=== PATIENT | female | born 1970 | race African-American/Black ===

== ENCOUNTER 2016-12-01 10:07 | Emergency (ER) | payer OTHER ==
[2016-12-01 10:18] VITALS: BP 160/92; PULSE 93; TEMP 98.4; BMI 50.8
--- NOTE | 2016-12-01 11:19 | PDOC ---
History of Present Illness - General Chief Complaint: Abscess Boil Stated Complaint: RT FOOT PAIN Time Seen by Provider: 12/01/16 11:17 - History of Present Illness Initial Comments: 12/01/16 15:20 not seen by Ángel BATES Past History - Past Medical History Allergies/Adverse Reactions: Allergies Allergy/AdvReac Type Severity Reaction Status Date / Time No Known Allergies Allergy Verified 12/01/16 10:13 Home Medications: Ambulatory Orders Aspirin [ASA -] 81 mg PO DAILY 08/31/16 Insulin Lispro Protamin/Lispro [Humalog Mix 75-25 Vial] 25 units SQ BID Metformin HCl [Glucophage] 1,000 mg PO BID 08/31/16 Ramipril 10 mg PO DAILY 08/31/16 Zolpidem Tartrate [Ambien] 10 mg PO HS 08/31/16 Anemia: No Asthma: No Cancer: No Cardiac Disorders: No CVA: No COPD: No CHF: No Dementia: No Diabetes: Yes GI Disorders: No Disorders: No HTN: Yes Hypercholesterolemia: Yes Liver Disease: No Seizures: No Thyroid Disease: Yes (HYPOTHYROIDISM) - Psycho/Social/Smoking Cessation Hx Suicidal Ideation: No Smoking History: Former smoker Have you smoked in the past 12 months: No Number of Cigarettes Smoked Daily: 6 Information on smoking cessation initiated: No *Physical Exam - Vital Signs Last Vital Signs Temp Pulse Resp BP Pulse Ox 98.4 F 93 H 17 160/92 95 12/01/16 10:13 12/01/16 10:13 12/01/16 10:13 12/01/16 10:13 12/01/16 10:13 *DC/Admit/Observation/Transfer Diagnosis at time of Disposition: Essential (primary) hypertension, Diabetes mellitus type 2 in obese, Diabetic foot ulcer - Discharge Dispostion Disposition: HOME Condition at time of disposition: Improved - Referrals Referrals: Ollie Marks MD [Staff Physician] - Poli Prater [Primary Care Provider] - - Patient Instructions Printed Discharge Instructions: DI for Pressure Sores Additional Instructions: You have a diabetic foot ulcer. It is not infected today, but it is getting bigger based on the note from your last doctors visit. I was able to make an appointment with Dr. Marks for Monday12/07/16 at 2:00pm. Keep this appointment. Your x-ray does not show evidence of a larger infection in your foot. Keep using your foot cream and keeping your wound covered. Wear padded shoes. Return to the ED if you develop fevers, chills, or redness around the area. - Post Discharge Activity Work/School Note: Back to Work
--- NOTE | 2016-12-01 12:04 | PDOC ---
History of Present Illness - General Chief Complaint: Abscess Boil Stated Complaint: RT FOOT PAIN Time Seen by Provider: 12/01/16 11:17 - History of Present Illness Initial Comments: 12/01/16 12:18 Ms. Andrew is a 46 y/o female PMH DM II, HTN, who presents to [facility] with a foot ucler that she wanted to get checked. Pt. noticed a smell coming from her foot. States that she had the ulcer since 2012 and has been coming to [place] for wound care and hyper baric oxygen, but had an issue with her insurance so she stopped coming. She was last seen in the clinic in August. Pt. denies weakness, numbness or tingling in the foot. Denies fevers, chills, n/v/d. Past History - Past Medical History Allergies/Adverse Reactions: Allergies Allergy/AdvReac Type Severity Reaction Status Date / Time No Known Allergies Allergy Verified 12/01/16 10:13 Home Medications: Ambulatory Orders Aspirin [ASA -] 81 mg PO DAILY 08/31/16 Insulin Lispro Protamin/Lispro [Humalog Mix 75-25 Vial] 25 units SQ BID Metformin HCl [Glucophage] 1,000 mg PO BID 08/31/16 Ramipril 10 mg PO DAILY 08/31/16 Zolpidem Tartrate [Ambien] 10 mg PO HS 08/31/16 Anemia: No Asthma: No Cancer: No Cardiac Disorders: No CVA: No COPD: No CHF: No Dementia: No Diabetes: Yes GI Disorders: No Disorders: No HTN: Yes Hypercholesterolemia: Yes Liver Disease: No Seizures: No Thyroid Disease: Yes (HYPOTHYROIDISM) - Psycho/Social/Smoking Cessation Hx Suicidal Ideation: No Smoking History: Former smoker Have you smoked in the past 12 months: No Number of Cigarettes Smoked Daily: 6 Information on smoking cessation initiated: No *Physical Exam - Vital Signs Last Vital Signs Temp Pulse Resp BP Pulse Ox 98.4 F 93 H 17 160/92 95 12/01/16 10:13 12/01/16 10:13 12/01/16 10:13 12/01/16 10:13 12/01/16 10:13 - Physical Exam Comments: 12/01/16 12:21 GENERAL: Well developed, well nourished. Awake and alert. No acute distress. MUSCULOSKELETAL Normal range of motion at all joints. No bony deformities or tenderness. No CVA tenderness. EXTREMITIES: Charcot's feet bilaterally. 1+ DP pulse b/l. PT pulses not felt. No cyanosis. No clubbing. No edema. No calf tenderness. SKIN: 6 cm x 5 cm elliptical pressure ulcer of the right plantar foot in various stages. Approximately 3 cm x 1 cm centrally located stage III pressure ulcer. The rest of the surrounding area is a stage II pressure ulcer. Distinct odor coming from the wound without discharge or purulent drainage. No cellulitis, induration, surrounding erythema. Large callus surrounding the medial aspect of the ulcer. Warm and dry. Normal capillary refill. No rashes. No jaundice. NEUROLOGICAL: Alert, awake, appropriate. Cranial nerves 2-12 intact. No deficits to light touch and temperature in face, upper extremities and lower extremities. No motor deficits in the in face, upper extremities and lower extremities. Normoreflexic in the upper and lower extremities. Normal speech. Toes are down- going bilaterally. Gait is normal without ataxia. Medical Decision Making - Medical Decision Making 12/01/16 13:23 Extensive diabetic pressure ulcer on the right plantar foot. Patient states she hasn't been able to go to wound care due to an insurance issue. She was last treated for her issue in August. Based on her last note, it appears the wound has gotten larger. We'll obtain x-ray at this time to rule out osteo or gangrene. wound was cultured sent to lab. With scissors, was able to deep breathe approximately 1 cm of callus along the medial aspect of the ulcer. This was done to explore the wound further 12/01/16 13:55 X-ray does not show evidence of gangrene or osteomyelitis. Arranged appointment for patient to go to wound care with Dr. Marks on December 07 at 2 PM. Patient smoke with case management, community mental health social worker Eugenia who help to explain the insurance issue she had. She will be able to see Dr. Marks as he accepts Medicaid. Patient agrees to go to this appointment. Explained the importance of follow up and going to wound care for her ulcer. States she understands. We'll discharge home at this time. *DC/Admit/Observation/Transfer Diagnosis at time of Disposition: Essential (primary) hypertension, Diabetes mellitus type 2 in obese Diabetic foot ulcer Qualifiers: Diabetic foot ulcer location: midfoot Diabetes mellitus type: type 2 Laterality : right Non-pressure ulcer stage: unspecified non-pressure ulcer stage Qualified Code(s): E11.621 - Type 2 diabetes mellitus with foot ulcer - Discharge Dispostion Disposition: HOME Condition at time of disposition: Improved Admit: No - Referrals Referrals: Poli Prater [Primary Care Provider] - Ollie Marks MD [Staff Physician] - - Patient Instructions Printed Discharge Instructions: DI for Pressure Sores Additional Instructions: You have a diabetic foot ulcer. It is not infected today, but it is getting bigger based on the note from your last doctors visit. I was able to make an appointment with Dr. Marks for Monday12/07/16 at 2:00pm. Keep this appointment. Your x-ray does not show evidence of a larger infection in your foot. Keep using your foot cream and keeping your wound covered. Wear padded shoes. Return to the ED if you develop fevers, chills, or redness around the area. - Post Discharge Activity Work/School Note: Back to Work
--- NOTE | 2016-12-06 08:36 | PDOC ---
Patient Follow-up (Call Back) - Post ED Follow - Up Condition at time of discharge: Improved Disposition at time of original discharge: HOME Reason for Call Back: Abnwl. Microbiology (Wound C & S from rt ft on 12/01/16 has morganella morganii, MRSA, Diphtheroid/ Corynebacterium sensitive to bactrim DS, rx sent to [facility], for bactrim DS 1 tab bid for 10 days, unable to speak to pt.( she was in [place] at a does not have cell phone, spoke to her daughter Neeta she reports that her mother will be back tomorrow and that any rxs should be sent to [facility], and that her mother has an appt with a rn otolaryngology tomorrow unsure of their name. She will have her mother supervisor picking crew the RX. Cell phone in this record is old not Nivia's number now)
== END 2016-12-01 13:15 | disposition home or self-care (01) ==
LOC: JERFT 10:07
DX: E11.621 Type 2 diabetes mellitus with foot ulcer (principal); I10 Essential (primary) hypertension; E66.9 Obesity, unspecified; Z68.43 Body mass index [BMI] 50.0-59.9, adult; E03.9 Hypothyroidism, unspecified; Z87.891 Personal history of nicotine dependence
CPT/HCPCS: 73630-TC-RT; 87070; 87077; 87186; 87205; 99281-25

== ENCOUNTER 2017-05-22 18:17 | Emergency (ER) | payer OTHER ==
[2017-05-22 18:22] VITALS: BP 142/78; PULSE 77; TEMP 97.7; BMI 47.7
[2017-05-22] MEDS ORDERED: BACITRACIN 15 GM TUBE TOPICAL OINTMENT ONE (18:36)
--- NOTE | 2017-05-22 18:39 | PDOC ---
History of Present Illness - General Chief Complaint: Redness To Affected Area Stated Complaint: REDNESS TO AFFECTED AREA Time Seen by Provider: 05/22/17 18:25 History Source: Patient Exam Limitations: No Limitations - History of Present Illness Initial Comments: 05/22/17 18:44 concerned about blisters to bilateral breasts. uncertain to cause, may have been a new Bra rubbing , denies fevers/ pain / drainage. 05/22/17 18:46 Timing/Duration: unsure Severity: mild Associated Symptoms: reports: denies symptoms, malaise. denies: cough, fever/ chills, headaches Past History - Travel Traveled outside of the country in the last 30 days: No Close contact w/someone who was outside of country & ill: No - Past Medical History Allergies/Adverse Reactions: Allergies Allergy/AdvReac Type Severity Reaction Status Date / Time No Known Allergies Allergy Verified 05/22/17 18:18 Home Medications: Ambulatory Orders Aspirin [ASA -] 81 mg PO DAILY 08/31/16 Insulin Lispro Protamin/Lispro [Humalog Mix 75-25 Vial] 25 units SQ BID Metformin HCl [Glucophage] 1,000 mg PO BID 08/31/16 Ramipril 10 mg PO DAILY 08/31/16 Zolpidem Tartrate [Ambien] 10 mg PO HS 08/31/16 Anemia: No Asthma: No Cancer: No Cardiac Disorders: No CVA: No COPD: No CHF: No Dementia: No Diabetes: Yes (IDDM) GI Disorders: No Disorders: No HTN: Yes Hypercholesterolemia: Yes Liver Disease: No Seizures: No Thyroid Disease: Yes (HYPOTHYROIDISM) - Suicide/Smoking/Psychosocial Hx Smoking History: Never smoked Have you smoked in the past 12 months: Yes Number of Cigarettes Smoked Daily: 6 If you are a former smoker, when did you quit?: 2 years ago Information on smoking cessation initiated: No Hx Alcohol Use: No Drug/Substance Use Hx: No Substance Use Type: None Review of Systems - Review of Systems Able to Perform ROS?: Yes Is the patient limited Malay proficient: Yes Constitutional: Yes: Symptoms Reported, See HPI, Malaise. No: Chills, Fever, Loss of Appetite HEENTM: No: Symptoms Reported Respiratory: Yes: See HPI. No: Symptoms reported ABD/GI: Yes: Symptoms Reported, See HPI. No: Poor Appetite : No: Symptoms Reported Integumentary: Yes: Symptoms Reported Neurological: No: Symptoms reported All Other Systems: Reviewed and Negative *Physical Exam - Vital Signs Last Vital Signs Temp Pulse Resp BP Pulse Ox 97.7 F 77 18 142/78 100 05/22/17 18:19 05/22/17 18:19 05/22/17 18:19 05/22/17 18:19 05/22/17 18:19 - Physical Exam General Appearance: Yes: Nourished, Appropriately Dressed, Apparent Distress, Mild Distress HEENT: positive: JAYE, Normal ENT Inspection, Normal Voice, TMs Normal, Pharynx Normal Neck: positive: Supple. negative: Lymphadenopathy (R), Lymphadenopathy (L) Respiratory/Chest: positive: Lungs Clear, Normal Breath Sounds Cardiovascular: positive: Regular Rate Gastrointestinal/Abdominal: positive: Soft Extremity: positive: Normal Capillary Refill, Normal Inspection, Normal Range of Motion Integumentary: positive: Normal Color, Other (bilateral bullae that have ruptured - no erythema/ pain/ purulent drainage, ) Neurologic: positive: technology applications consultant II-XII NML intact, Fully Oriented, Alert, Normal Mood/ Affect, Normal Response, Motor Strength 5/5 Medical Decision Making - Medical Decision Making 05/22/17 18:52 fiction abrasions to bilateral breasts. dressed with bacitracin and opsite. Will F/U with Wound care that she attends weekly *DC/Admit/Observation/Transfer Diagnosis at time of Disposition: Abrasion - Discharge Dispostion Disposition: HOME Condition at time of disposition: Stable Admit: No - Patient Instructions Printed Discharge Instructions: DI for Abrasion Additional Instructions: Rest, Avoid heavy activity or lifting until healed. MAy reapply bacitracin to breast blisters as needed until healed. Show wound care on Monday - breast blisters for wound check.
== END 2017-05-22 18:47 | disposition home or self-care (01) ==
LOC: JERFT 18:17
DX: S20.112A Abrasion of breast, left breast, initial encounter (principal); S20.111A Abrasion of breast, right breast, initial encounter; X58.XXXA Exposure to other specified factors, initial encounter; Y93.9 Activity, unspecified; Y92.9 Unspecified place or not applicable; E11.9 Type 2 diabetes mellitus without complications; I10 Essential (primary) hypertension; E78.00 Pure hypercholesterolemia, unspecified; E03.9 Hypothyroidism, unspecified
CPT/HCPCS: 99281-25

== ENCOUNTER 2017-10-17 14:27 | Emergency (ER) | payer OTHER ==
[2017-10-17 14:36] VITALS: BP 143/89; PULSE 91; TEMP 97.8; BMI 37.0
--- NOTE | 2017-10-17 14:37 | PDOC ---
Rapid Medical Evaluation Chief Complaint: Abscess Boil Time Seen by Provider: 10/17/17 14:31 Medical Evaluation: Allergies Allergy/AdvReac Type Severity Reaction Status Date / Time No Known Allergies Allergy Verified 10/17/17 14:31 10/17/17 14:32 The patient presents with a chief complaint of: [Erythematous raw circular area under right axilla, H/O MRSA ] I have performed a brief in-person evaluation of this patient. Pertinent physical exam findings: vss, [Erythematous raw circular area under right axilla] I have ordered the following: [None] The patient will proceed to the ED for further evaluation. Discharge Disposition - Diagnosis Skin lesion - Referrals Referrals: Carlos Vann MD [Primary Care Provider] - - Patient Instructions - Post Discharge Activity
--- NOTE | 2017-10-17 15:19 | PDOC ---
History of Present Illness - General Chief Complaint: Abscess Boil Stated Complaint: RT ARM ABSCESS BOIL Time Seen by Provider: 10/17/17 14:31 History Source: Patient Exam Limitations: No Limitations - History of Present Illness Initial Comments: 10/17/17 15:19 47 yr female with obesity , DM, foot ulcer presents with open area to her right upper arm noticed today. pt states she scratched at the area and it started to bleed. Past History - Past Medical History Allergies/Adverse Reactions: Allergies Allergy/AdvReac Type Severity Reaction Status Date / Time No Known Allergies Allergy Verified 10/17/17 14:31 Home Medications: Ambulatory Orders Aspirin [ASA -] 81 mg PO DAILY 08/31/16 Insulin Lispro Protamin/Lispro [Humalog Mix 75-25 Vial] 25 units SQ BID Metformin HCl [Glucophage] 1,000 mg PO BID 08/31/16 Ramipril 10 mg PO DAILY 08/31/16 Zolpidem Tartrate [Ambien] 10 mg PO HS 08/31/16 Anemia: No Asthma: No Cancer: No Cardiac Disorders: No CVA: No COPD: No CHF: No Dementia: No Diabetes: Yes (IDDM) GI Disorders: No Disorders: No HTN: Yes Hypercholesterolemia: Yes Liver Disease: No Seizures: No Thyroid Disease: Yes (HYPOTHYROIDISM) - Immunization History Immunization Up to Date: Yes - Suicide/Smoking/Psychosocial Hx Smoking History: Never smoked Have you smoked in the past 12 months: Yes Number of Cigarettes Smoked Daily: 6 If you are a former smoker, when did you quit?: 2 years ago Information on smoking cessation initiated: No Hx Alcohol Use: No Drug/Substance Use Hx: No Substance Use Type: None *Physical Exam - Vital Signs Last Vital Signs Temp Pulse Resp BP Pulse Ox 97.8 F 91 H 16 143/89 98 10/17/17 14:31 10/17/17 14:31 10/17/17 14:31 10/17/17 14:31 10/17/17 14:31 - Physical Exam General Appearance: Yes: Nourished, Appropriately Dressed, Obese Integumentary: positive: Normal Color, Dry, Warm, Other (right upper outer forearm with 2cm circular area of excoraited skin, no drainage, no bleeding ) Procedures - Additional Procedures Progress: 10/17/17 15:22 wound cleaned with saline and peroxide bacitracin placed and covered with bandaid *DC/Admit/Observation/Transfer Diagnosis at time of Disposition: Abrasion - Discharge Dispostion Disposition: HOME Condition at time of disposition: Good - Referrals Referrals: Carlos Vann MD [Primary Care Provider] - - Patient Instructions Additional Instructions: keep clean and dry apply bacitracin and bandaid to the area once a day until healed, let the area dry completely and air out during the day follow with your doctor if any worsening symptoms - Post Discharge Activity
== END 2017-10-17 15:21 | disposition home or self-care (01) ==
LOC: JERFT 14:27
DX: S40.811A Abrasion of right upper arm, initial encounter (principal); E11.9 Type 2 diabetes mellitus without complications; Z87.891 Personal history of nicotine dependence; I10 Essential (primary) hypertension; E03.9 Hypothyroidism, unspecified; X58.XXXA Exposure to other specified factors, initial encounter; Y93.89 Activity, other specified; Y92.9 Unspecified place or not applicable
CPT/HCPCS: 99281-25

== ENCOUNTER 2018-07-17 09:46 | Inpatient (IN) | payer OTHER ==
--- NOTE | 2018-07-17 10:26 | PDOC ---
History of Present Illness - General History Source: Patient Exam Limitations: No Limitations - History of Present Illness Initial Comments: 07/17/18 11:36 CC: Right foot wound. HPI: The patient is a 47 year old female, with a significant past medical history of chronic diabetic ulcer (right foot), DM II, HTN, HLD, and Hypothyroidism, who presents to the emergency department with, 5 days of worsening right pinky toe and 4th toe pressure ulcer. Patient endorses foul smelling purulent discharge. She notes a history of pressure ulcers which she saw Dr. Gomez (podiatry) and Dr. Iverson (wound care) earlier this year. She denies recent fevers, chills, headache or dizziness. She denies recent nausea, vomit, diarrhea or constipation. She denies recent dysuria, frequency, urgency or hematuria. She denies recent chest pain or shortness of breath. Allergies: NKDA Social history: Former smoker. Denies EtOH use and recreational drug use. Primary Care Physician: Dr. Vann Podiatry: Dr. Gomez Wound Care: Dr. Iverson <Unruly Raymond - Last Filed: 07/17/18 11:35> <Elder Hawley - Last Filed: 07/17/18 15:48> - General Chief Complaint: Wound Stated Complaint: WOUND,RT TOE Time Seen by Provider: 07/17/18 10:10 Past History <Unruly Raymond - Last Filed: 07/17/18 11:35> - Past Medical History Anemia: No Asthma: No Cancer: No Cardiac Disorders: No CVA: No COPD: No CHF: No Dementia: No Diabetes: Yes (IDDM) GI Disorders: No Disorders: No HTN: Yes Hypercholesterolemia: Yes Liver Disease: No Seizures: No Thyroid Disease: Yes (HYPOTHYROIDISM) - Immunization History Immunization Up to Date: Yes - Suicide/Smoking/Psychosocial Hx Smoking History: Never smoked Have you smoked in the past 12 months: Yes Number of Cigarettes Smoked Daily: 6 If you are a former smoker, when did you quit?: 2 years ago Information on smoking cessation initiated: No Hx Alcohol Use: No Drug/Substance Use Hx: No Substance Use Type: None <Elder Hawley - Last Filed: 07/17/18 15:48> - Past Medical History Allergies/Adverse Reactions: Allergies Allergy/AdvReac Type Severity Reaction Status Date / Time No Known Allergies Allergy Verified 07/17/18 10:02 Home Medications: Ambulatory Orders Aspirin [ASA -] 81 mg PO DAILY 08/31/16 Metformin HCl [Glucophage] 1,000 mg PO BID 08/31/16 Amlodipine Besylate [Norvasc -] 10 mg PO DAILY 07/17/18 Review of Systems - Review of Systems Able to Perform ROS?: Yes Comments:: 07/17/18 11:36 ROS: A complete review of 10 out of 10 review of systems is taken and is negative apart from what is previously mentioned below and in the HPI. <Unruly Raymond - Last Filed: 07/17/18 11:35> *Physical Exam - Vital Signs Last Vital Signs Temp Pulse Resp BP Pulse Ox 99.0 F 93 H 18 153/71 97 07/17/18 10:02 07/17/18 10:02 07/17/18 10:02 07/17/18 10:02 07/17/18 10:02 - Physical Exam Comments: 07/17/18 11:36 Exam: Vitals: Triage Vital signs reviewed General Appearance: no acute distress, well nourished well developed, Head: Atraumatic, normocephalic Neck: Supple;No Nuchal rigidity Chest Wall: Nontender Cardiac: Regular rate and rhythm, no murmurs, no rubs, no gallops, Lungs: Clear to auscultation bilateral, good air movement bilaterally, Abdomen: Soft, nondistended, normal bowel sounds, nontender to palpation Rectal: Exam deferred Extremities: Full range of motion to all extremities, no edema +Skin: Right foot: Pressure ulcer to the base of the right pinky toe and 4th toe. Foul smelling. No purulent discharge. Neuro: AOX3; Cranial Nerves 2-12 grossly intact, Strength intact to all extremities, Sensation intact to all extremities Psych: normal mood, normal affect <Unruly Raymond - Last Filed: 07/17/18 11:35> - Vital Signs Last Vital Signs Temp Pulse Resp BP Pulse Ox 99.0 F 93 H 18 153/71 97 07/17/18 10:02 07/17/18 10:02 07/17/18 10:02 07/17/18 10:02 07/17/18 10:02 <Elder Hawley - Last Filed: 07/17/18 15:48> Moderate Sedation - Procedure Monitoring Vital Signs: Procedure Monitoring Vital Signs Temperature 99.0 F 07/17/18 10:02 Pulse Rate 93 H 07/17/18 10:02 Respiratory Rate 18 07/17/18 10:02 Blood Pressure 153/71 07/17/18 10:02 O2 Sat by Pulse Oximetry (%) 97 07/17/18 10:02 <Unruly Raymond - Last Filed: 07/17/18 11:35> - Procedure Monitoring Vital Signs: Procedure Monitoring Vital Signs Temperature 99.0 F 07/17/18 10:02 Pulse Rate 93 H 07/17/18 10:02 Respiratory Rate 18 07/17/18 10:02 Blood Pressure 153/71 07/17/18 10:02 O2 Sat by Pulse Oximetry (%) 97 07/17/18 10:02 <Elder Hawley - Last Filed: 07/17/18 15:48> Heart Score/ECG Review - ECG Impressions Comment:: 07/17/18 15:46 EKG performed at 1114 demonstrates normal sinus rhythm no ST elevations or T- wave inversions normal axis Interpreted by me. <Elder Hawley - Last Filed: 07/17/18 15:48> ED Treatment Course - LABORATORY CBC & Chemistry Diagram: 07/17/18 10:45 07/17/18 10:45 - ADDITIONAL ORDERS Additional order review: 07/17/18 10:45 RBC 3.93 MCV 80.7 MCHC 34.1 RDW 15.2 MPV 8.5 Neutrophils % 59.9 Lymphocytes % 31.1 Monocytes % 5.4 Eosinophils % 3.0 Basophils % 0.6 <Unruly Raymond - Last Filed: 07/17/18 11:35> - LABORATORY CBC & Chemistry Diagram: 07/17/18 10:45 07/17/18 10:45 <Elder Hawley - Last Filed: 07/17/18 15:48> Medical Decision Making - Medical Decision Making 07/17/18 15:47 Diabetic foot ulcer patient seen and evaluated by podiatry Recommended IV antibiotics and admission We'll do to medicine for further management. Patient covered with Zosyn and vancomycin. <Elder Hawley - Last Filed: 07/17/18 15:48> *DC/Admit/Observation/Transfer - Attestations Scribe Attestion: 07/17/18 11:36 Documentation prepared by Unruly Raymond, acting as medical chemist for Elder Hawley MD. <Unruly Raymond - Last Filed: 07/17/18 11:35> - Discharge Dispostion Decision to Admit order: Yes <Elder Hawley - Last Filed: 07/17/18 15:48> Diagnosis at time of Disposition: Diabetic foot ulcer Qualifiers: Diabetic foot ulcer location: toe Diabetes mellitus type: type 1 Laterality: right Non-pressure ulcer stage: limited to breakdown of skin Qualified Code(s): E10.621 - Type 1 diabetes mellitus with foot ulcer; L97.511 - Non-pressure chronic ulcer of other part of right foot limited to breakdown of skin - Discharge Dispostion Condition at time of disposition: Good
[2018-07-17 11:19] LABS: BASO % 0.6 % (0-2.0); HEMATOCRIT 31.7 % (32.4-45.2); HEMOGLOBIN 10.8 GM/dL (10.7-15.3); LYMPH % 31.1 % (8-40); MCH 27.5 pg (25.7-33.7); MCHC 34.1 g/dl (32.0-36.0); MEAN CELL VOLUME 80.7 fl (80-96); MEAN PLT VOLUME 8.5 fl (7.5-11.1); MONO % 5.4 % (3.8-10.2); NEUT % 59.9 % (42.8-82.8); PLATELET COUNT 267 K/MM3 (134-434); RBC 3.93 M/mm3 (3.60-5.2); RDW 15.2 % (11.6-15.6); WHITE BLOOD COUNT 6.3 K/mm3 (4.0-10.0)
[2018-07-17 11:43] LABS: ALBUMIN 3.2 g/dl (3.4-5.0); ALK PHOS 125 U/L (45-117); ANION GAP 8 MMOL/L (8-16); BILIRUBIN,TOTAL 0.3 mg/dL (0.2-1); BLOOD UREA NITROGEN 20 mg/dL (7-18); CALCIUM 8.8 mg/dL (8.5-10.1); CHLORIDE 104 mmol/L (98-107); CO2 28 mmol/L (21-32); CREATININE 0.9 mg/dL (0.55-1.3); GLUCOSE,RANDOM 172 mg/dL (74-106); POTASSIUM 4.4 mmol/L (3.5-5.1); SGOT/AST 7 U/L (15-37); SGPT/ALT 18 U/L (13-61); SODIUM 140 mmol/L (136-145); TOT PROT 6.9 g/dl (6.4-8.2)
[2018-07-17] MEDS ORDERED: VANCOMYCIN 1,000 MG in DEXTROSE 5%-WATER - 250 ML IVPB ONE (11:45)
[2018-07-17] MEDS ORDERED: PIPERACILLIN/TAZOB 3.375 GM 3.375 GM in DEXTROSE 5%-WATER - 50 ML IVPB ONE (11:45)
[2018-07-17] MEDS ORDERED: VANCOMYCIN 1 GRAM (PRE-DOCKED) 1,000 MG/250 ML BAG IVPB ONE (11:46)
[2018-07-17] MEDS ORDERED: PIPERACILLIN/TAZOB 3.375 GM 3.375 GM/50 ML BAG IVPB ONE (11:47)
--- NOTE | 2018-07-17 13:17 | CONSULT ---
Consult Consult Specialty:: Podiatry Reason for Consultation:: Wound, blister right foot, -mal odor, +cellulitis, - History of Present Illness Chief Complaint: wound right foot History of Present Illness: Patient does not know how it happened. However, is not using her diabetic shoes. - History Source History Provided By: Patient Limitations to Obtaining History: Poor Historian - Past Medical History ...LMP: 10/24/17 - Alcohol/Substance Use Hx Alcohol Use: No - Smoking History Smoking history: Never smoked Have you smoked in the past 12 months: Yes Aproximately how many cigarettes per day: 6 If you are a former smoker, when did you quit?: 2 years ago Home Medications - Allergies Allergies/Adverse Reactions: Allergies Allergy/AdvReac Type Severity Reaction Status Date / Time No Known Allergies Allergy Verified 07/17/18 10:02 - Home Medications Home Medications: Ambulatory Orders Aspirin [ASA -] 81 mg PO DAILY 08/31/16 Metformin HCl [Glucophage] 1,000 mg PO BID 08/31/16 Amlodipine Besylate [Norvasc -] 10 mg PO DAILY 07/17/18 Physical Exam Vital Signs: Vital Signs Temperature 98.5 F 07/17/18 11:56 Pulse Rate 93 H 07/17/18 10:02 Respiratory Rate 18 07/17/18 10:02 Blood Pressure 153/71 07/17/18 10:02 O2 Sat by Pulse Oximetry (%) 97 07/17/18 10:02 Wound/Incision: Yes: Other (wound 4th and 5th toe with ulceration sub metatarsal 5) Labs: CBC, BMP 07/17/18 10:45 07/17/18 10:45 Assessment/Plan cellulitis diabetic wound dm with neuropathy Xray reviewed. Santyl to wounds. ID on case for IVABX. Wound culture. Will follow.
[2018-07-17] MEDS ORDERED: ACETAMINOPHEN 325 MG TABLET (FP) PO PRN (15:11)
--- NOTE | 2018-07-17 15:13 | HP ---
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 History Source: Patient - Past Medical History ...LMP: 10/24/17 Endocrine: Yes: Diabetes Mellitus - Smoking History Smoking history: Never smoked Have you smoked in the past 12 months: Yes Aproximately how many cigarettes per day: 6 If you are a former smoker, when did you quit?: 2 years ago - Alcohol/Substance Use Hx Alcohol Use: No - Social History History of Recent Travel: No Home Medications - Allergies Allergies/Adverse Reactions: Allergies Allergy/AdvReac Type Severity Reaction Status Date / Time No Known Allergies Allergy Verified 07/17/18 10:02 - Home Medications Home Medications: Ambulatory Orders Aspirin [ASA -] 81 mg PO DAILY 08/31/16 Metformin HCl [Glucophage] 1,000 mg PO BID 08/31/16 Amlodipine Besylate [Norvasc -] 10 mg PO DAILY 07/17/18 Family Disease History - Family Disease History Family Disease History: Diabetes: Mother (COPD, Brast Cancer) Review of Systems - Review of Systems Constitutional: denies: Chills, Diaphoresis, Fever Eyes: denies: Blind Spots, Blurred Vision HENT: denies: Difficult Swallowing, Ear Discharge, Ear Pain, Epistaxis Neck: denies: Decreased ROM, Lumps, Pain on Movement, Stiffness Cardiovascular: denies: Chest Pain, Edema, Palpitations, Shortness of Breath Respiratory: denies: Cough, Exercise Intolerance Gastrointestinal: denies: Abdominal Pain, Bloating, Constipation, Diarrhea Integumentary: reports: Change in Color (Rt Foot 5th Toe abscess) Neurological: denies: Change in LOC, Change in Speech, Confusion Endocrine: denies: Excessive Sweating, Flushing, Increased Hunger Hematology/Lymphatic: denies: Easily Bruised, Excessive Bleeding, Swollen Glands Pain Intensity: 2 Physical Examination Vital Signs: Vital Signs Temperature 98.0 F 07/17/18 14:03 Pulse Rate 96 H 12/04/18 14:03 Respiratory Rate 18 07/17/18 14:03 Blood Pressure 141/80 07/17/18 14:03 O2 Sat by Pulse Oximetry (%) 100 07/17/18 14:03 Constitutional: Yes: Well Nourished, No Distress, Calm. No: Anxious HENT: Yes: Atraumatic, Normocephalic, Other (Mm Moist no anemia) Neck: Yes: Supple, Trachea Midline. No: Decreased ROM, Lymphadenopathy Cardiovascular: Yes: Regular Rate and Rhythm, S1, S2. No: Bruit, JVD, Murmur Respiratory: Yes: Regular, CTA Bilaterally Gastrointestinal: Yes: Normal Bowel Sounds, Soft Musculoskeletal: Yes: Back Pain Extremities: Yes: Other (Rt footh 5th Toe swelling and discharge) Edema: Yes Edema: RUE: 1+, LLE: 1+ Peripheral Pulses: Left Doralis Pedis: 1+, Right Dorsalis Pedis: 1+ Integumentary: Yes: Other (Rt Foor CEllulitis) Neurological: Yes: WNL, Alert, Oriented ...Motor Strength: WNL, LUE, LLE, RUE, RLE Labs: CBC, BMP 07/17/18 10:45 07/17/18 10:45 Imaging - Results X-ray: Report Reviewed (Rt Foot no bony loss or FB) Problem List - Problems (1) Abscess of right foot Assessment/Plan: Evaluted by ID and Podiatry needs I and D wound care F/U culture cont Zosyn and Vancomycin Code(s): L02.611 - CUTANEOUS ABSCESS OF RIGHT FOOT (2) Diabetes mellitus type 2 in obese Assessment/Plan: will hold Po meds cont correction dose insulin Diabetic diet F/U HbA1C Code(s): E11.9 - TYPE 2 DIABETES MELLITUS WITHOUT COMPLICATIONS; E66.9 - OBESITY , UNSPECIFIED (3) Essential (primary) hypertension Assessment/Plan: Well controlled cont all home meds Code(s): I10 - ESSENTIAL (PRIMARY) HYPERTENSION (4) Morbid obesity with BMI of 45.0-49.9, adult Assessment/Plan: Nutrional assessment as out patient. Code(s): E66.01 - MORBID (SEVERE) OBESITY DUE TO EXCESS CALORIES; Z68.42 - BODY MASS INDEX (BMI) 45.0-49.9, ADULT
--- NOTE | 2018-07-17 15:32 | CON.ID ---
Consult Consult Specialty:: infectious diseases Referred by:: Reason for Consultation:: wound infection,r/o osteo of the toe - History of Present Illness Chief Complaint: pain in the toes,with swelling History of Present Illness: 47 year old female, with a significant past medical history of chronic diabetic ulcer (right foot), DM II, HTN, HLD, and Hypothyroidism, who presents to the emergency department with, 5 days of worsening pain of her right small toe and 4th toe pressure ulcer. THe patient states that she had chronic "blisters on her right 4th and 5th toes but they became painful and she developed foul smelling discharge . She has been following with podiatry for this. She denies recent fevers, chills, headache or dizziness. She denies recent nausea, vomit, diarrhea or constipation. currently patient is comfortable patient also has a healed callus in the foot - History Source History Provided By: Patient Limitations to Obtaining History: No Limitations - Past Medical History ...LMP: 10/24/17 - Alcohol/Substance Use Hx Alcohol Use: No - Smoking History Smoking history: Never smoked Have you smoked in the past 12 months: Yes Aproximately how many cigarettes per day: 6 If you are a former smoker, when did you quit?: 2 years ago Home Medications - Allergies Allergies/Adverse Reactions: Allergies Allergy/AdvReac Type Severity Reaction Status Date / Time No Known Allergies Allergy Verified 07/17/18 10:02 - Home Medications Home Medications: Ambulatory Orders Aspirin [ASA -] 81 mg PO DAILY 08/31/16 Metformin HCl [Glucophage] 1,000 mg PO BID 08/31/16 Amlodipine Besylate [Norvasc -] 10 mg PO DAILY 07/17/18 Review of Systems - Review of Systems Constitutional: reports: No Symptoms Eyes: reports: No Symptoms HENT: reports: No Symptoms Neck: reports: No Symptoms Cardiovascular: reports: No Symptoms Respiratory: reports: No Symptoms Gastrointestinal: reports: No Symptoms Genitourinary: reports: No Symptoms Musculoskeletal: reports: Extremity Pain, Other Integumentary: reports: Erythema, Wound, Other (discharge) Neurological: reports: No Symptoms Endocrine: reports: No Symptoms Hematology/Lymphatic: reports: No Symptoms Psychiatric: reports: No Symptoms Physical Exam Vital Signs: Vital Signs Temperature 98.0 F 07/17/18 14:03 Pulse Rate 96 H 07/17/18 14:03 Respiratory Rate 18 07/17/18 14:03 Blood Pressure 141/80 07/17/18 14:03 O2 Sat by Pulse Oximetry (%) 100 07/17/18 14:03 Constitutional: Yes: Well Nourished, No Distress, Calm HENT: Yes: Atraumatic, Normocephalic Cardiovascular: Yes: Regular Rate and Rhythm Respiratory: Yes: Regular, CTA Bilaterally Gastrointestinal: Yes: Normal Bowel Sounds, Soft Musculoskeletal: Yes: WNL Extremities: Yes: Erythema (improving), Other (cllus in the foot with wounds of the little finger) Wound/Incision: Yes: Open to air, Draining, Other Neurological: Yes: Alert, Oriented Psychiatric: Yes: Alert, Oriented Labs: CBC, BMP 07/17/18 10:45 07/17/18 10:45 Imaging - Results X-ray: Report Reviewed, Image Reviewed Assessment/Plan this patient with multiple medical problems and foot problems cellulitis diabetic wound dm with neuropathy r/o osteo plan get mri of the foot podiatry wound cx rest as per the team will start on broad spectrum abx
[2018-07-17] MEDS ORDERED: PIPERACILLIN/TAZOB 3.375 GM 3.375 GM in DEXTROSE 5%-WATER - 50 ML IVPB SCH (18:00)
[2018-07-17] MEDS ORDERED: PIPERACILLIN/TAZOBACTAM 3.375 GM VIAL IVPB ONE (19:48)
[2018-07-17] MEDS ORDERED: DEXTROSE 5%-WATER - 50 ML IVPB ONE (19:48)
[2018-07-17] MEDS: PIPERACILLIN/TAZOB 3.375 GM 3.375 GM in DEXTROSE 5%-WATER - 50 ML IVPB SCH (19:55)
[2018-07-18] MEDS ORDERED: PIPERACILLIN/TAZOBACTAM 3.375 GM VIAL IVPB ONE ×3 (01:13→16:53)
[2018-07-18] MEDS ORDERED: DEXTROSE 5%-WATER - 50 ML IVPB ONE ×3 (01:13→16:53)
[2018-07-18] MEDS: PIPERACILLIN/TAZOB 3.375 GM 3.375 GM in DEXTROSE 5%-WATER - 50 ML IVPB SCH ×3 (01:57→17:49)
[2018-07-18] MEDS: INSULIN SLIDING SCALE (NOVOLOG) 1 VIAL SQ SCH ×3 (06:37→17:51)
[2018-07-18 06:41] LABS: BASO % 0.7 % (0-2.0); EOS % 3.9 % (0-4.5); HEMATOCRIT 30.6 % (32.4-45.2); HEMOGLOBIN 10.4 GM/dL (10.7-15.3); LYMPH % 31.5 % (8-40); MCH 27.5 pg (25.7-33.7); MCHC 33.9 g/dl (32.0-36.0); MEAN CELL VOLUME 81.1 fl (80-96); MEAN PLT VOLUME 8.5 fl (7.5-11.1); NEUT % 56.9 % (42.8-82.8); PLATELET COUNT 232 K/MM3 (134-434); RBC 3.77 M/mm3 (3.60-5.2); RDW 14.9 % (11.6-15.6); WHITE BLOOD COUNT 5.9 K/mm3 (4.0-10.0)
[2018-07-18] MEDS ORDERED: INSULIN (NOVOLOG) ASPART 100 UNITS/ML 10ML VIAL ONE ×2 (06:46→10:57)
[2018-07-18 07:06] LABS: ALBUMIN 2.9 g/dl (3.4-5.0); ALK PHOS 111 U/L (45-117); ANION GAP 8 MMOL/L (8-16); BILIRUBIN,TOTAL 0.3 mg/dL (0.2-1); BLOOD UREA NITROGEN 20 mg/dL (7-18); CALCIUM 8.4 mg/dL (8.5-10.1); CHLORIDE 102 mmol/L (98-107); CO2 29 mmol/L (21-32); CREATININE 0.9 mg/dL (0.55-1.3); GLUCOSE,RANDOM 204 mg/dL (74-106); POTASSIUM 4.2 mmol/L (3.5-5.1); SGOT/AST 9 U/L (15-37); SGPT/ALT 17 U/L (13-61); SODIUM 139 mmol/L (136-145); TOT PROT 6.3 g/dl (6.4-8.2)
--- NOTE | 2018-07-18 07:37 | PN ---
Progress Note, Physician Chief Complaint: No new complaints - Current Medication List Current Medications: Active Medications Acetaminophen (Tylenol -) 650 mg PO Q6H PRN PRN Reason: PAIN Amlodipine Besylate (Norvasc -) 10 mg PO DAILY [facility] Aspirin (Asa -) 81 mg PO DAILY [facility] Collagenase (Santyl -) 1 applic TP DAILY [facility]; Protocol Enoxaparin Sodium (Lovenox -) 40 mg SQ DAILY [facility] Piperacillin Sod/Tazobactam (Sod 3.375 gm/ Dextrose) 50 mls @ 100 mls/hr IVPB Q8H-IV [facility]; Protocol Last Admin: 07/18/18 01:57 Dose: 100 mls/hr Influenza Virus Vaccine Quadrival (Flulaval Quad [id number]) 60 mcg IM .ONCE ONE Stop: 07/18/18 09:01 Insulin Aspart (Novolog Vial Sliding Scale -) 1 vial SQ TIDAC [facility]; Protocol Last Admin: 07/18/18 06:37 Dose: 4 units Pneumococcal 13-Valent Conj Vacc (Prevnar 13 Syringe -) 0.5 ml IM .ONCE ONE Stop: 07/18/18 09:01 - Objective Vital Signs: Vital Signs Temperature 97.9 F 07/18/18 06:00 Pulse Rate 84 07/18/18 06:00 Respiratory Rate 20 07/18/18 06:00 Blood Pressure 152/65 07/18/18 06:00 O2 Sat by Pulse Oximetry (%) 96 07/17/18 21:00 Constitutional: Yes: Well Nourished, No Distress, Calm. No: Anxious HENT: Yes: Atraumatic, Normocephalic, Other (Mm Moist no anemia) Neck: Yes: Supple, Trachea Midline. No: Decreased ROM, Lymphadenopathy Cardiovascular: Yes: Regular Rate and Rhythm, S1, S2. No: Bruit, JVD, Murmur Respiratory: Yes: Regular, CTA Bilaterally Gastrointestinal: Yes: Normal Bowel Sounds, Soft Musculoskeletal: Yes: Back Pain Extremities: Yes: Other (Rt footh 5th Toe swelling and discharge) Edema: Yes Edema: RUE: 1+, LLE: 1+ Peripheral Pulses: Left Doralis Pedis: 1+, Right Dorsalis Pedis: 1+ Integumentary: Yes: Other (Rt Foor CEllulitis) Neurological: Yes: WNL, Alert, Oriented ...Motor Strength: WNL, LUE, LLE, RUE, RLE Labs: CBC, BMP 07/18/18 06:00 07/18/18 06:00 Problem List - Problems (1) Abscess of right foot Assessment/Plan: Evaluted by ID and Podiatry needs I and D wound care F/U culture cont Zosyn and Vancomycin Code(s): L02.611 - CUTANEOUS ABSCESS OF RIGHT FOOT (2) Controlled diabetes mellitus with foot ulcer Code(s): E11.621 - TYPE 2 DIABETES MELLITUS WITH FOOT ULCER; L97.509 - NON- PRESSURE CHRONIC ULCER OTH PRT UNSP FOOT W UNSP SEVERITY (3) Diabetes mellitus type 2 in obese Assessment/Plan: will hold Po meds cont correction dose insulin Diabetic diet F/U HbA1C Code(s): E11.9 - TYPE 2 DIABETES MELLITUS WITHOUT COMPLICATIONS; E66.9 - OBESITY , UNSPECIFIED (4) Morbid obesity with BMI of 45.0-49.9, adult Assessment/Plan: Nutrional assessment as out patient. Code(s): E66.01 - MORBID (SEVERE) OBESITY DUE TO EXCESS CALORIES; Z68.42 - BODY MASS INDEX (BMI) 45.0-49.9, ADULT (5) Essential (primary) hypertension Assessment/Plan: Well controlled cont all home meds Code(s): I10 - ESSENTIAL (PRIMARY) HYPERTENSION
[2018-07-18] MEDS ORDERED: PNEUMOC 13-VAL CONJ-DIP CRM/PF 0.5 ML DISP.SYRIN IM ONE (09:00)
[2018-07-18] MEDS ORDERED: FLU VACCINE QUAD 60 MCG/0.5 ML (MDV 18-19) IM ONE (09:00)
[2018-07-18] MEDS ORDERED: PT OWN MED DRAWER 7, Y5N ONE ×2 (10:58→16:53)
[2018-07-18] MEDS: amLODIPine BESYLATE 10 MG TABLET (FP) PO SCH (11:23)
[2018-07-18] MEDS: ASPIRIN 81 MG CHEWABLE TABLETS PO SCH (11:23)
[2018-07-18] MEDS: ENOXAPARIN NA (PORCINE) 40 MG/0.4 ML DISP.SYRIN SQ SCH (11:23)
--- NOTE | 2018-07-18 12:18 | HP ---
CHIEF COMPLAINT: right foot DM ulcers PCP: HISTORY OF PRESENT ILLNESS: The patient is a 47 year old female, with a significant past medical history of chronic diabetic ulcer (right foot), DM II, HTN, HLD, and Hypothyroidism, who presents to the emergency department with, 5 days of worsening pain of her right small toe and 4th toe pressure ulcer. THe patient states that she had chronic "blisters on her right 4th and 5th toes but they became painful and she developed foul d/c last week after walking for an extended period of time. She has been following with podiatry for this. She denies recent fevers, chills, headache or dizziness. She denies recent nausea, vomit, diarrhea or constipation. Allergies: NKDA Social history: Former smoker. Denies EtOH use and recreational drug use. Primary Care Physician: Dr. Vann Podiatry: Dr. Gomez Wound Care: Dr. Iverson Past History Anemia: No Asthma: No Cancer: No Cardiac Disorders: No CVA: No COPD: No CHF: No Dementia: No Diabetes: Yes (IDDM) GI Disorders: No Disorders: No HTN: Yes Hypercholesterolemia: Yes Liver Disease: No Seizures: No Thyroid Disease: Yes (HYPOTHYROIDISM) No Known Allergies Allergy (Verified 07/17/18 10:02) HOME MEDICATIONS: Home Medications Medication Instructions Recorded Aspirin [ASA -] 81 mg PO DAILY 08/31/16 Metformin HCl [Glucophage] 1,000 mg PO BID 08/31/16 Amlodipine Besylate [Norvasc -] 10 mg PO DAILY 07/17/18 REVIEW OF SYSTEMS CONSTITUTIONAL: Absent: fever, chills, diaphoresis, generalized weakness, HEENT: Absent: rhinorrhea, nasal congestion, throat pain, throat swelling, difficulty swallowing, mouth swelling, ear pain, eye pain, visual changes CARDIOVASCULAR: Absent: chest pain, syncope, palpitations, RESPIRATORY: Absent: cough, shortness of breath, dyspnea with exertion, GASTROINTESTINAL: Absent: abdominal pain, abdominal distension, nausea, vomiting, diarrhea, constipation, GENITOURINARY: Absent: dysuria, frequency, MUSCULOSKELETAL: Absent: myalgia, arthralgia, joint swelling, SKIN: Absent: rash, itching, pallor HEMATOLOGIC/IMMUNOLOGIC: Absent: easy bleeding, easy bruising, lymphadenopathy, PHYSICAL EXAMINATION Vital Signs - 24 hr 07/17/18 07/17/18 07/17/18 11:56 13:15 14:03 Temperature 98.5 F 98.0 F Pulse Rate Pulse Rate [ 96 H Right Radial] Respiratory 18 Rate Blood Pressure Blood Pressure 141/80 [Left Arm] O2 Sat by Pulse 100 100 Oximetry (%) 07/17/18 07/17/18 07/17/18 17:36 18:59 20:20 Temperature 98.3 F 98.7 F 98.7 F Pulse Rate 90 90 Pulse Rate [ 83 Right Radial] Respiratory 18 20 20 Rate Blood Pressure 141/93 141/93 Blood Pressure 133/78 [Left Arm] O2 Sat by Pulse 100 96 Oximetry (%) 07/17/18 07/18/18 21:00 06:00 Temperature 97.9 F Pulse Rate 84 Pulse Rate [ Right Radial] Respiratory 20 20 Rate Blood Pressure 152/65 Blood Pressure [Left Arm] O2 Sat by Pulse 96 Oximetry (%) PE: GENERAL: Awake, alert, and fully oriented, in no acute distress. HEAD: Normal with no signs of trauma. EYES: sclera anicteric, conjunctiva clear. No lid lag. LUNGS: no auditory No wheezes, No accessory muscle use on RA HEART: Regular rate and rhythm, normal S1 and S2 without murmur, rub or gallop. MUSCULOSKELETAL: moving all extremities without limitation. LOWER EXTREMITIES: Right LE compartments soft supple and nontender to palpation No peripheral edema. right foot with chronic calus- healed over instep, small Chronic DM ulcers over the plantar surface of the distal 4th and 5th toes and the plantar surface of the base of the 5th MTP joint, surrounding tissue intact with no erythema, edema or d/c, no evidence of foul smell or collection. +2 DP pulse. Left LE compartments, soft, supple and nontender to palpation, no lesions or ulcers, with +2 DP pulse. NEUROLOGICAL: Cranial nerves II-XII intact. Normal speech. Normal gait. PSYCHIATRIC: Cooperative. Good eye contact. Appropriate mood and affect. SKIN: Warm, dry, normal turgor, no rashes or lesions noted, normal capillary refill. Laboratory Results - last 24 hr 07/17/18 07/18/18 07/18/18 10:45 05:51 06:00 WBC 5.9 RBC 3.77 Hgb 10.4 L Hct 30.6 L MCV 81.1 MCH 27.5 MCHC 33.9 RDW 14.9 Plt Count 232 MPV 8.5 Absolute Neuts (auto) 3.4 Neutrophils % 56.9 Lymphocytes % 31.5 Monocytes % 7.0 Eosinophils % 3.9 Basophils % 0.7 Nucleated RBC % 0 ESR 94 H Sodium Potassium Chloride Carbon Dioxide Anion Gap BUN Creatinine Creat Clearance w eGFR POC Glucometer 226 Random Glucose Hemoglobin A1c % Calcium Total Bilirubin AST ALT Alkaline Phosphatase Total Protein Albumin TSH 07/18/18 07/18/18 06:00 06:00 WBC RBC Hgb Hct MCV MCH MCHC RDW Plt Count MPV Absolute Neuts (auto) Neutrophils % Lymphocytes % Monocytes % Eosinophils % Basophils % Nucleated RBC % ESR Sodium 139 Potassium 4.2 Chloride 102 Carbon Dioxide 29 Anion Gap 8 BUN 20 H Creatinine 0.9 Creat Clearance w eGFR > 60 POC Glucometer Random Glucose 204 H Hemoglobin A1c % 9.2 H Calcium 8.4 L Total Bilirubin 0.3 AST 9 L ALT 17 Alkaline Phosphatase 111 Total Protein 6.3 L Albumin 2.9 L TSH 1.45 ASSESSMENT/PLAN: Problem List - Problem (1) Controlled diabetes mellitus with foot ulcer Assessment/Plan: 47yo with stable DM foot ulcers and palpable pulses with good flow, no indication for vascular intervention. 1) Podiatry recommendations for DM ulcers 2) Offload pressure sensitive areas 3) Orthopedic shoes as patient may have ill fitting shoes. Code(s): E11.621 - TYPE 2 DIABETES MELLITUS WITH FOOT ULCER; L97.509 - NON- PRESSURE CHRONIC ULCER OTH PRT UNSP FOOT W UNSP SEVERITY Visit type - Emergency Visit Emergency Visit: Yes ED Registration Date: 07/17/18 Care time: The patient presented to the Emergency Department on the above date and was hospitalized for further evaluation of their emergent condition. - New Patient This patient is new to me today: Yes Date on this admission: 07/18/18 - Critical Care Critical Care patient: No
--- NOTE | 2018-07-18 12:42 | PN ---
Progress Note, Physician History of Present Illness: comfortable no new issues - Current Medication List Current Medications: Active Medications Acetaminophen (Tylenol -) 650 mg PO Q6H PRN PRN Reason: PAIN Amlodipine Besylate (Norvasc -) 10 mg PO DAILY [facility] Last Admin: 07/18/18 11:23 Dose: 10 mg Aspirin (Asa -) 81 mg PO DAILY [facility] Last Admin: 07/18/18 11:23 Dose: 81 mg Collagenase (Santyl -) 1 applic TP DAILY [facility]; Protocol Enoxaparin Sodium (Lovenox -) 40 mg SQ DAILY [facility] Last Admin: 07/18/18 11:23 Dose: 40 mg Piperacillin Sod/Tazobactam (Sod 3.375 gm/ Dextrose) 50 mls @ 100 mls/hr IVPB Q8H-IV [facility]; Protocol Last Admin: 07/18/18 11:23 Dose: 100 mls/hr Insulin Aspart (Novolog Vial Sliding Scale -) 1 vial SQ TIDAC [facility]; Protocol Last Admin: 07/18/18 11:41 Dose: 4 units - Objective Vital Signs: Vital Signs Temperature 97.9 F 07/18/18 06:00 Pulse Rate 84 07/18/18 06:00 Respiratory Rate 20 07/18/18 06:00 Blood Pressure 152/65 07/18/18 06:00 O2 Sat by Pulse Oximetry (%) 96 07/17/18 21:00 Constitutional: Yes: No Distress, Calm Cardiovascular: Yes: Regular Rate and Rhythm Respiratory: Yes: Regular, CTA Bilaterally Gastrointestinal: Yes: Normal Bowel Sounds, Soft Musculoskeletal: Yes: WNL Extremities: Yes: Other Wound/Incision: Yes: Other Neurological: Yes: Alert, Oriented Psychiatric: Yes: Alert, Oriented Labs: CBC, BMP 07/18/18 06:00 07/18/18 06:00 Assessment/Plan this patient with multiple medical problems and foot problems cellulitis diabetic wound dm with neuropathy r/o osteo plan get mri of the foot podiatry await for wound cx rest as per the team continue broad spectrum abx
[2018-07-18] MEDS: COLLAGENASE CLOSTRIDIUM HIST. 30 GRAMS TUBE TP SCH (17:49)
[2018-07-19] MEDS ORDERED: DEXTROSE 5%-WATER - 50 ML IVPB ONE ×3 (01:28→16:37)
[2018-07-19] MEDS ORDERED: PIPERACILLIN/TAZOBACTAM 3.375 GM VIAL IVPB ONE ×3 (01:28→16:37)
[2018-07-19] MEDS: PIPERACILLIN/TAZOB 3.375 GM 3.375 GM in DEXTROSE 5%-WATER - 50 ML IVPB SCH ×3 (02:07→17:00)
[2018-07-19] MEDS: INSULIN SLIDING SCALE (NOVOLOG) 1 VIAL SQ SCH ×4 (06:02→16:46)
--- NOTE | 2018-07-19 07:58 | PN ---
Progress Note, Physician Chief Complaint: No new complaints - Current Medication List Current Medications: Active Medications Acetaminophen (Tylenol -) 650 mg PO Q6H PRN PRN Reason: PAIN Amlodipine Besylate (Norvasc -) 10 mg PO DAILY [facility] Last Admin: 07/18/18 11:23 Dose: 10 mg Aspirin (Asa -) 81 mg PO DAILY [facility] Last Admin: 07/18/18 11:23 Dose: 81 mg Collagenase (Santyl -) 1 applic TP DAILY [facility]; Protocol Last Admin: 07/18/18 17:49 Dose: 1 applic Enoxaparin Sodium (Lovenox -) 40 mg SQ DAILY [facility] Last Admin: 07/18/18 11:23 Dose: 40 mg Piperacillin Sod/Tazobactam (Sod 3.375 gm/ Dextrose) 50 mls @ 100 mls/hr IVPB Q8H-IV [facility]; Protocol Last Admin: 07/19/18 02:07 Dose: 100 mls/hr Insulin Aspart (Novolog Vial Sliding Scale -) 1 vial SQ TIDAC [facility]; Protocol Last Admin: 07/19/18 06:02 Dose: 4 units - Objective Vital Signs: Vital Signs Temperature 97.5 F L 07/19/18 06:00 Pulse Rate 78 07/19/18 06:00 Respiratory Rate 20 07/19/18 06:00 Blood Pressure 146/85 07/19/18 06:00 O2 Sat by Pulse Oximetry (%) 99 07/18/18 09:00 Constitutional: Yes: Well Nourished, No Distress, Calm. No: Anxious HENT: Yes: Atraumatic, Normocephalic, Other (Mm Moist no anemia) Neck: Yes: Supple, Trachea Midline. No: Decreased ROM, Lymphadenopathy Cardiovascular: Yes: Regular Rate and Rhythm, S1, S2. No: Bruit, JVD, Murmur Respiratory: Yes: Regular, CTA Bilaterally Gastrointestinal: Yes: Normal Bowel Sounds, Soft Musculoskeletal: Yes: Back Pain Extremities: Yes: Other (Rt footh 5th Toe swelling and discharge) Edema: Yes Edema: RUE: 1+, LLE: 1+ Peripheral Pulses: Left Doralis Pedis: 1+, Right Dorsalis Pedis: 1+ Integumentary: Yes: Other (Rt Foor CEllulitis) Neurological: Yes: WNL, Alert, Oriented, Motor Strength: WNL, LUE, LLE, RUE, RLE Labs: CBC, BMP 07/18/18 06:00 Problem List - Problems (1) Abscess of right foot Assessment/Plan: Evaluted by ID and Podiatry needs I and D wound care F/U culture cont Zosyn and Vancomycin Code(s): L02.611 - CUTANEOUS ABSCESS OF RIGHT FOOT (2) Diabetes mellitus type 2 in obese Assessment/Plan: will hold Po meds cont correction dose insulin Diabetic diet , HbA1C 9.6 add Basal insulin 12 units Levimir at bed time Code(s): E11.9 - TYPE 2 DIABETES MELLITUS WITHOUT COMPLICATIONS; E66.9 - OBESITY , UNSPECIFIED (3) Essential (primary) hypertension Assessment/Plan: Well controlled cont all home meds Code(s): I10 - ESSENTIAL (PRIMARY) HYPERTENSION (4) Morbid obesity with BMI of 45.0-49.9, adult Assessment/Plan: Nutrional assessment as out patient. Code(s): E66.01 - MORBID (SEVERE) OBESITY DUE TO EXCESS CALORIES; Z68.42 - BODY MASS INDEX (BMI) 45.0-49.9, ADULT
[2018-07-19 08:14] LABS: ALBUMIN 2.8 g/dl (3.4-5.0); ALK PHOS 115 U/L (45-117); ANION GAP 6 MMOL/L (8-16); BILIRUBIN,TOTAL 0.4 mg/dL (0.2-1); BLOOD UREA NITROGEN 21 mg/dL (7-18); CALCIUM 8.6 mg/dL (8.5-10.1); CHLORIDE 101 mmol/L (98-107); CO2 30 mmol/L (21-32); CREATININE 0.8 mg/dL (0.55-1.3); GLUCOSE,RANDOM 202 mg/dL (74-106); POTASSIUM 4.2 mmol/L (3.5-5.1); SGOT/AST 12 U/L (15-37); SGPT/ALT 16 U/L (13-61); SODIUM 137 mmol/L (136-145); TOT PROT 6.5 g/dl (6.4-8.2)
--- NOTE | 2018-07-19 09:44 | PN ---
Progress Note (short form) - Note Progress Note: Pt seen in bed. vss, tmax 98 +necrotic tips of toes 4&5 right, -drainage, awaiting mri, +improved cellulitis Necrotic tissue tips of toes 4&5 resolving abscess Santyl dressing change to toes and abscess area. Awaiting MRI. Daily dressing change. Will follow.
--- NOTE | 2018-07-19 11:10 | PN ---
Progress Note, Physician History of Present Illness: comfortable no new issues - Current Medication List Current Medications: Active Medications Acetaminophen (Tylenol -) 650 mg PO Q6H PRN PRN Reason: PAIN Amlodipine Besylate (Norvasc -) 10 mg PO DAILY [facility] Last Admin: 07/18/18 11:23 Dose: 10 mg Aspirin (Asa -) 81 mg PO DAILY [facility] Last Admin: 07/18/18 11:23 Dose: 81 mg Collagenase (Santyl -) 1 applic TP DAILY [facility]; Protocol Last Admin: 07/18/18 17:49 Dose: 1 applic Enoxaparin Sodium (Lovenox -) 40 mg SQ DAILY [facility] Last Admin: 07/18/18 11:23 Dose: 40 mg Piperacillin Sod/Tazobactam (Sod 3.375 gm/ Dextrose) 50 mls @ 100 mls/hr IVPB Q8H-IV [facility]; Protocol Last Admin: 07/19/18 02:07 Dose: 100 mls/hr Insulin Aspart (Novolog Vial Sliding Scale -) 1 vial SQ TIDAC [facility]; Protocol Last Admin: 07/19/18 06:02 Dose: 4 units - Objective Vital Signs: Vital Signs Temperature 97.5 F L 07/19/18 06:00 Pulse Rate 78 07/19/18 06:00 Respiratory Rate 20 07/19/18 06:00 Blood Pressure 146/85 07/19/18 06:00 O2 Sat by Pulse Oximetry (%) 99 07/18/18 09:00 Constitutional: Yes: No Distress, Calm, Obese Cardiovascular: Yes: Regular Rate and Rhythm Respiratory: Yes: Regular, CTA Bilaterally Gastrointestinal: Yes: Normal Bowel Sounds, Soft Musculoskeletal: Yes: WNL Extremities: Yes: WNL Neurological: Yes: Alert, Oriented Psychiatric: Yes: Alert, Oriented Labs: CBC, BMP 07/18/18 06:00 07/19/18 06:30 Assessment/Plan this patient with multiple medical problems and foot problems cellulitis diabetic wound dm with neuropathy r/o osteo plan get mri of the foot podiatry await for wound cx rest as per the team continue broad spectrum abx
[2018-07-19] MEDS: amLODIPine BESYLATE 10 MG TABLET (FP) PO SCH (11:15)
[2018-07-19] MEDS: ENOXAPARIN NA (PORCINE) 40 MG/0.4 ML DISP.SYRIN SQ SCH (11:15)
[2018-07-19] MEDS: ASPIRIN 81 MG CHEWABLE TABLETS PO SCH (11:15)
[2018-07-19] MEDS: COLLAGENASE CLOSTRIDIUM HIST. 30 GRAMS TUBE TP SCH (11:25)
[2018-07-19 12:03] VITALS: BMI 48.9
[2018-07-19] MEDS ORDERED: INSULIN (NOVOLOG) ASPART 100 UNITS/ML 10ML VIAL ONE (16:36)
[2018-07-19] MEDS ORDERED: INSULIN (LEVEMIR) 100 UNITS/ML UNITS SQ SCH (22:00)
[2018-07-20] MEDS ORDERED: PIPERACILLIN/TAZOBACTAM 3.375 GM VIAL IVPB ONE ×3 (01:03→16:40)
[2018-07-20] MEDS ORDERED: DEXTROSE 5%-WATER - 50 ML IVPB ONE ×3 (01:04→16:40)
[2018-07-20] MEDS: PIPERACILLIN/TAZOB 3.375 GM 3.375 GM in DEXTROSE 5%-WATER - 50 ML IVPB SCH ×3 (02:34→17:53)
[2018-07-20] MEDS: INSULIN SLIDING SCALE (NOVOLOG) 1 VIAL SQ SCH ×5 (06:32→18:00)
[2018-07-20 07:15] LABS: ANION GAP 4 MMOL/L (8-16); BLOOD UREA NITROGEN 24 mg/dL (7-18); CALCIUM 8.9 mg/dL (8.5-10.1); CHLORIDE 102 mmol/L (98-107); CO2 32 mmol/L (21-32); CREATININE 0.9 mg/dL (0.55-1.3); GLUCOSE,RANDOM 177 mg/dL (74-106); POTASSIUM 4.3 mmol/L (3.5-5.1); SODIUM 138 mmol/L (136-145)
[2018-07-20 07:22] LABS: BASO % 0.7 % (0-2.0); EOS % 3.8 % (0-4.5); HEMATOCRIT 33.2 % (32.4-45.2); HEMOGLOBIN 11.2 GM/dL (10.7-15.3); LYMPH % 35.7 % (8-40); MCH 27.3 pg (25.7-33.7); MCHC 33.7 g/dl (32.0-36.0); MEAN CELL VOLUME 80.9 fl (80-96); MEAN PLT VOLUME 8.3 fl (7.5-11.1); MONO % 6.9 % (3.8-10.2); NEUT % 52.9 % (42.8-82.8); PLATELET COUNT 250 K/MM3 (134-434); RBC 4.11 M/mm3 (3.60-5.2); RDW 14.9 % (11.6-15.6); WHITE BLOOD COUNT 5.1 K/mm3 (4.0-10.0)
[2018-07-20] MEDS ORDERED: PT OWN MED DRAWER 7, Y5N ONE ×2 (07:42→10:10)
[2018-07-20] MEDS ORDERED: INSULIN (NOVOLOG) ASPART 100 UNITS/ML 10ML VIAL ONE (10:09)
[2018-07-20] MEDS: amLODIPine BESYLATE 10 MG TABLET (FP) PO SCH (11:03)
[2018-07-20] MEDS: ASPIRIN 81 MG CHEWABLE TABLETS PO SCH (11:03)
[2018-07-20] MEDS: ENOXAPARIN NA (PORCINE) 40 MG/0.4 ML DISP.SYRIN SQ SCH (11:03)
[2018-07-20] MEDS: VITAMIN B COMPLEX W/C COMBO TABLET (FP) PO SCH (11:04)
--- NOTE | 2018-07-20 11:19 | PN ---
Progress Note, Physician Chief Complaint: Afebrile stable - Current Medication List Current Medications: Active Medications Acetaminophen (Tylenol -) 650 mg PO Q6H PRN PRN Reason: PAIN Amlodipine Besylate (Norvasc -) 10 mg PO DAILY [facility] Last Admin: 07/20/18 11:03 Dose: 10 mg Aspirin (Asa -) 81 mg PO DAILY [facility] Last Admin: 07/20/18 11:03 Dose: 81 mg Collagenase (Santyl -) 1 applic TP DAILY [facility]; Protocol Last Admin: 07/19/18 11:25 Dose: 1 applic Enoxaparin Sodium (Lovenox -) 40 mg SQ DAILY [facility] Last Admin: 07/20/18 11:03 Dose: 40 mg Piperacillin Sod/Tazobactam (Sod 3.375 gm/ Dextrose) 50 mls @ 100 mls/hr IVPB Q8H-IV [facility]; Protocol Last Admin: 07/20/18 11:05 Dose: 100 mls/hr Insulin Aspart (Novolog Vial Sliding Scale -) 1 vial SQ TIDAC [facility]; Protocol Last Admin: 07/20/18 06:32 Dose: 2 units Insulin Detemir (Levemir Vial) 12 units SQ HS [facility] Last Admin: 07/19/18 21:53 Dose: 12 units Multivitamins (Total B With C -) 1 each PO DAILY [facility] Last Admin: 07/20/18 11:04 Dose: 1 each - Objective Vital Signs: Vital Signs Temperature 97.5 F L 07/20/18 06:00 Pulse Rate 79 07/20/18 06:00 Respiratory Rate 20 07/20/18 06:00 Blood Pressure 122/55 L 07/20/18 06:00 O2 Sat by Pulse Oximetry (%) 99 07/19/18 21:00 Constitutional: Yes: Well Nourished, No Distress, Calm. No: Anxious HENT: Yes: Atraumatic, Normocephalic, Other (Mm Moist no anemia) Neck: Yes: Supple, Trachea Midline. No: Decreased ROM, Lymphadenopathy Cardiovascular: Yes: Regular Rate and Rhythm, S1, S2. No: Bruit, JVD, Murmur Respiratory: Yes: Regular, CTA Bilaterally Gastrointestinal: Yes: Normal Bowel Sounds, Soft Musculoskeletal: Yes: Back Pain Extremities: Yes: Other (Rt footh 5th Toe swelling and discharge) Edema: Yes Edema: RUE: 1+, LLE: 1+ Peripheral Pulses: Left Doralis Pedis: 1+, Right Dorsalis Pedis: 1+ Integumentary: Yes: Other (Rt Foor CEllulitis) Neurological: Yes: WNL, Alert, Oriented, Motor Strength: WNL, LUE, LLE, RUE, RLE Labs: CBC, BMP 07/20/18 06:00 07/20/18 06:00 - ....Imaging MRI: Report Reviewed (Rt Foot ? osteomyelitis) Problem List - Problems (1) Abscess of right foot Assessment/Plan: Evaluted by ID and Podiatry needs I and D wound care F/U culture are -ve, cont Zosyn and Vancomycin,MRSA -ve, wound is healing MRI ? OM will discuss with ID. Code(s): L02.611 - CUTANEOUS ABSCESS OF RIGHT FOOT (2) Diabetes mellitus type 2 in obese Assessment/Plan: will hold Po meds cont correction dose insulin Diabetic diet , HbA1C 9.6 increase Basal insulin 15 units Levimir at bed time Code(s): E11.9 - TYPE 2 DIABETES MELLITUS WITHOUT COMPLICATIONS; E66.9 - OBESITY , UNSPECIFIED (3) Essential (primary) hypertension Assessment/Plan: Well controlled cont all home meds Code(s): I10 - ESSENTIAL (PRIMARY) HYPERTENSION (4) Morbid obesity with BMI of 45.0-49.9, adult Assessment/Plan: Nutrional assessment as out patient. Code(s): E66.01 - MORBID (SEVERE) OBESITY DUE TO EXCESS CALORIES; Z68.42 - BODY MASS INDEX (BMI) 45.0-49.9, ADULT
--- NOTE | 2018-07-20 12:18 | PN ---
Progress Note (short form) - Note Progress Note: Pt seen in bed. vss, tmax 97.5 +necrotic tips of toes 4&5 right, +om on mri, resolved cellulitis Necrotic tissue tips of toes 4&5 resolving abscess om Santyl dressing change to toes and abscess area. HBO consult. Daily dressing change. Will follow.
--- NOTE | 2018-07-20 14:18 | PN ---
Progress Note, Physician History of Present Illness: patient seen by podiatry will discuss with podiatry - Current Medication List Current Medications: Active Medications Acetaminophen (Tylenol -) 650 mg PO Q6H PRN PRN Reason: PAIN Amlodipine Besylate (Norvasc -) 10 mg PO DAILY [facility] Last Admin: 07/20/18 11:03 Dose: 10 mg Aspirin (Asa -) 81 mg PO DAILY [facility] Last Admin: 07/20/18 11:03 Dose: 81 mg Collagenase (Santyl -) 1 applic TP DAILY [facility]; Protocol Last Admin: 07/19/18 11:25 Dose: 1 applic Enoxaparin Sodium (Lovenox -) 40 mg SQ DAILY [facility] Last Admin: 07/20/18 11:03 Dose: 40 mg Piperacillin Sod/Tazobactam (Sod 3.375 gm/ Dextrose) 50 mls @ 100 mls/hr IVPB Q8H-IV [facility]; Protocol Last Admin: 07/20/18 11:05 Dose: 100 mls/hr Insulin Aspart (Novolog Vial Sliding Scale -) 1 vial SQ TIDAC [facility]; Protocol Last Admin: 07/20/18 12:16 Dose: 2 units Insulin Detemir (Levemir Vial) 15 units SQ HS [facility] Multivitamins (Total B With C -) 1 each PO DAILY [facility] Last Admin: 07/20/18 11:04 Dose: 1 each - Objective Vital Signs: Vital Signs Temperature 97.5 F L 07/20/18 06:00 Pulse Rate 80 07/20/18 10:00 Respiratory Rate 18 07/20/18 10:00 Blood Pressure 160/100 07/20/18 10:00 O2 Sat by Pulse Oximetry (%) 96 07/20/18 09:00 Constitutional: Yes: No Distress, Calm Cardiovascular: Yes: Regular Rate and Rhythm Respiratory: Yes: Regular, CTA Bilaterally Gastrointestinal: Yes: Normal Bowel Sounds, Soft Musculoskeletal: Yes: WNL Extremities: Yes: Other Neurological: Yes: Alert, Oriented Psychiatric: Yes: Alert, Oriented Labs: CBC, BMP 07/20/18 06:00 07/20/18 06:00 Assessment/Plan this patient with multiple medical problems and foot problems cellulitis diabetic wound dm with neuropathy r/o osteo plan mri result noted images seen probably will treat as osteo will d/w podiatry if we need to get a biopsy
[2018-07-20] MEDS: COLLAGENASE CLOSTRIDIUM HIST. 30 GRAMS TUBE TP SCH (15:00)
[2018-07-20] MEDS: INSULIN (LEVEMIR) 100 UNITS/ML UNITS SQ SCH (22:15)
[2018-07-21] MEDS ORDERED: PIPERACILLIN/TAZOBACTAM 3.375 GM VIAL IVPB ONE ×3 (01:05→17:39)
[2018-07-21] MEDS ORDERED: DEXTROSE 5%-WATER - 50 ML IVPB ONE ×3 (01:06→17:39)
[2018-07-21] MEDS: PIPERACILLIN/TAZOB 3.375 GM 3.375 GM in DEXTROSE 5%-WATER - 50 ML IVPB SCH ×3 (01:19→18:01)
[2018-07-21] MEDS: INSULIN SLIDING SCALE (NOVOLOG) 1 VIAL SQ SCH ×3 (06:10→16:43)
[2018-07-21 08:09] LABS: BASO % 0.6 % (0-2.0); EOS % 3.7 % (0-4.5); HEMATOCRIT 32.5 % (32.4-45.2); HEMOGLOBIN 11.5 GM/dL (10.7-15.3); LYMPH % 32.8 % (8-40); MCH 28.6 pg (25.7-33.7); MCHC 35.5 g/dl (32.0-36.0); MEAN CELL VOLUME 80.4 fl (80-96); MEAN PLT VOLUME 8.5 fl (7.5-11.1); MONO % 8.3 % (3.8-10.2); NEUT % 54.6 % (42.8-82.8); PLATELET COUNT 257 K/MM3 (134-434); RBC 4.04 M/mm3 (3.60-5.2); RDW 14.8 % (11.6-15.6); WHITE BLOOD COUNT 5.6 K/mm3 (4.0-10.0)
[2018-07-21 08:57] LABS: ANION GAP 8 MMOL/L (8-16); BLOOD UREA NITROGEN 24 mg/dL (7-18); CALCIUM 8.6 mg/dL (8.5-10.1); CHLORIDE 102 mmol/L (98-107); CO2 30 mmol/L (21-32); CREATININE 0.9 mg/dL (0.55-1.3); GLUCOSE,RANDOM 148 mg/dL (74-106); POTASSIUM 4.6 mmol/L (3.5-5.1); SODIUM 139 mmol/L (136-145)
[2018-07-21] MEDS ORDERED: PT OWN MED DRAWER 7, Y5N ONE (09:48)
[2018-07-21] MEDS: amLODIPine BESYLATE 10 MG TABLET (FP) PO SCH (09:50)
[2018-07-21] MEDS: ASPIRIN 81 MG CHEWABLE TABLETS PO SCH (09:50)
[2018-07-21] MEDS: ENOXAPARIN NA (PORCINE) 40 MG/0.4 ML DISP.SYRIN SQ SCH (09:50)
[2018-07-21] MEDS: VITAMIN B COMPLEX W/C COMBO TABLET (FP) PO SCH (09:51)
[2018-07-21] MEDS: COLLAGENASE CLOSTRIDIUM HIST. 30 GRAMS TUBE TP SCH (10:00)
--- NOTE | 2018-07-21 14:20 | PN ---
Progress Note, Physician Chief Complaint: Afebrile stable - Current Medication List Current Medications: Active Medications Acetaminophen (Tylenol -) 650 mg PO Q6H PRN PRN Reason: PAIN Amlodipine Besylate (Norvasc -) 10 mg PO DAILY [facility] Last Admin: 07/21/18 09:50 Dose: 10 mg Aspirin (Asa -) 81 mg PO DAILY [facility] Last Admin: 07/21/18 09:50 Dose: 81 mg Collagenase (Santyl -) 1 applic TP DAILY [facility]; Protocol Last Admin: 07/20/18 15:00 Dose: 1 applic Enoxaparin Sodium (Lovenox -) 40 mg SQ DAILY [facility] Last Admin: 07/21/18 09:50 Dose: 40 mg Piperacillin Sod/Tazobactam (Sod 3.375 gm/ Dextrose) 50 mls @ 100 mls/hr IVPB Q8H-IV [facility]; Protocol Last Admin: 07/21/18 09:51 Dose: 100 mls/hr Insulin Aspart (Novolog Vial Sliding Scale -) 1 vial SQ TIDAC [facility]; Protocol Last Admin: 07/21/18 12:23 Dose: 4 units Insulin Detemir (Levemir Vial) 15 units SQ HS [facility] Last Admin: 07/20/18 22:15 Dose: 15 units Multivitamins (Total B With C -) 1 each PO DAILY [facility] Last Admin: 07/21/18 09:51 Dose: 1 each - Objective Vital Signs: Vital Signs Temperature 98.4 F 07/21/18 10:00 Pulse Rate 82 07/21/18 10:00 Respiratory Rate 20 07/21/18 10:00 Blood Pressure 130/77 07/21/18 10:00 O2 Sat by Pulse Oximetry (%) 96 07/20/18 21:00 Constitutional: Yes: Well Nourished, No Distress, Calm. No: Anxious HENT: Yes: Atraumatic, Normocephalic, Other (Mm Moist no anemia) Neck: Yes: Supple, Trachea Midline. No: Decreased ROM, Lymphadenopathy Cardiovascular: Yes: Regular Rate and Rhythm, S1, S2. No: Bruit, JVD, Murmur Respiratory: Yes: Regular, CTA Bilaterally Gastrointestinal: Yes: Normal Bowel Sounds, Soft Musculoskeletal: Yes: Back Pain Extremities: Yes: Other (Rt footh 5th Toe swelling and discharge) Edema: Yes Edema: RUE: 1+, LLE: 1+ Peripheral Pulses: Left Doralis Pedis: 1+, Right Dorsalis Pedis: 1+ Integumentary: Yes: Other (Rt Foor CEllulitis) Neurological: Yes: WNL, Alert, Oriented, Motor Strength: WNL, LUE, LLE, RUE, RLE Labs: CBC, BMP 07/21/18 07:05 07/21/18 07:05 Problem List - Problems (1) Abscess of right foot Assessment/Plan: Evaluted by ID and Podiatry needs I and D wound care F/U culture are -ve, cont Zosyn , wound is healing MRI ? OM will discuss with ID. Code(s): L02.611 - CUTANEOUS ABSCESS OF RIGHT FOOT (2) Diabetes mellitus type 2 in obese Assessment/Plan: will hold Po meds cont correction dose insulin Diabetic diet , HbA1C 9.6 increase Basal insulin 15 units Levimir at bed time Code(s): E11.9 - TYPE 2 DIABETES MELLITUS WITHOUT COMPLICATIONS; E66.9 - OBESITY , UNSPECIFIED (3) Essential (primary) hypertension Assessment/Plan: Well controlled cont all home meds Code(s): I10 - ESSENTIAL (PRIMARY) HYPERTENSION (4) Morbid obesity with BMI of 45.0-49.9, adult Assessment/Plan: Nutrional assessment as out patient.
--- NOTE | 2018-07-21 15:06 | PN ---
Progress Note, Physician History of Present Illness: Pt seen and examined. Denies pain in Rt foot. Remains afebrile. No specific complaints. - Current Medication List Current Medications: Active Medications Acetaminophen (Tylenol -) 650 mg PO Q6H PRN PRN Reason: PAIN Amlodipine Besylate (Norvasc -) 10 mg PO DAILY [facility] Last Admin: 07/21/18 09:50 Dose: 10 mg Aspirin (Asa -) 81 mg PO DAILY [facility] Last Admin: 07/21/18 09:50 Dose: 81 mg Collagenase (Santyl -) 1 applic TP DAILY [facility]; Protocol Last Admin: 07/20/18 15:00 Dose: 1 applic Enoxaparin Sodium (Lovenox -) 40 mg SQ DAILY [facility] Last Admin: 07/21/18 09:50 Dose: 40 mg Piperacillin Sod/Tazobactam (Sod 3.375 gm/ Dextrose) 50 mls @ 100 mls/hr IVPB Q8H-IV [facility]; Protocol Last Admin: 07/21/18 09:51 Dose: 100 mls/hr Insulin Aspart (Novolog Vial Sliding Scale -) 1 vial SQ TIDAC [facility]; Protocol Last Admin: 07/21/18 12:23 Dose: 4 units Insulin Detemir (Levemir Vial) 15 units SQ HS [facility] Last Admin: 07/20/18 22:15 Dose: 15 units Multivitamins (Total B With C -) 1 each PO DAILY [facility] Last Admin: 07/21/18 09:51 Dose: 1 each - Objective Vital Signs: Vital Signs Temperature 98.4 F 07/21/18 10:00 Pulse Rate 82 07/21/18 10:00 Respiratory Rate 20 07/21/18 10:00 Blood Pressure 130/77 07/21/18 10:00 O2 Sat by Pulse Oximetry (%) 96 07/21/18 09:00 Constitutional: Yes: No Distress Cardiovascular: Yes: Regular Rate and Rhythm Respiratory: Yes: Regular Gastrointestinal: Yes: Normal Bowel Sounds, Soft, Abdomen, Obese Genitourinary: Yes: WNL Extremities: Yes: Erythema Wound/Incision: Yes: Dressing Removed (Rt 1st toe inferior aspect ulcer - no current purulence noted, +mild edema/erythema Rt 4th/5th toe chronic ulcers) Neurological: Yes: Alert Labs: CBC, BMP 07/21/18 07:05 07/21/18 07:05 esr - 69 crp- 2.6 - ....Imaging MRI: Report Reviewed Problem List - Problems (1) Diabetic foot ulcer Code(s): E11.621 - TYPE 2 DIABETES MELLITUS WITH FOOT ULCER; L97.509 - NON- PRESSURE CHRONIC ULCER OTH PRT UNSP FOOT W UNSP SEVERITY Qualifiers: Diabetic foot ulcer location: toe Diabetes mellitus type: type 1 Laterality: right Non-pressure ulcer stage: limited to breakdown of skin Qualified Code(s): E10.621 - Type 1 diabetes mellitus with foot ulcer; L97.511 - Non-pressure chronic ulcer of other part of right foot limited to breakdown of skin (2) Morbid obesity with BMI of 45.0-49.9, adult Code(s): E66.01 - MORBID (SEVERE) OBESITY DUE TO EXCESS CALORIES; Z68.42 - BODY MASS INDEX (BMI) 45.0-49.9, ADULT (3) Diabetes mellitus type 2 in obese Code(s): E11.9 - TYPE 2 DIABETES MELLITUS WITHOUT COMPLICATIONS; E66.9 - OBESITY , UNSPECIFIED (4) Essential (primary) hypertension Code(s): I10 - ESSENTIAL (PRIMARY) HYPERTENSION Assessment/Plan Rt foot cellulitis Rt Diabetic foot ulcer infection Possible OM of Rt 4th/5th toe OM labs/MRI results noted -- cont. current antibiotics -- d/w Podiatry about obtaining bone biopsy -- continue wound care
--- NOTE | 2018-07-21 15:44 | PN ---
Progress Note (short form) - Note Progress Note: Pt seen in bed. vss, tmax 98.4 +necrotic tips of toes 4&5 right, +om on mri, resolved cellulitis Necrotic tissue tips of toes 4&5 resolving abscess om Santyl dressing change to toes and abscess area. HBO to start on dc. Follow up in wound care. IVABX as per ID. Post op shoe right. Will follow.
[2018-07-21] MEDS: INSULIN (LEVEMIR) 100 UNITS/ML UNITS SQ SCH (21:27)
[2018-07-22] MEDS ORDERED: PIPERACILLIN/TAZOBACTAM 3.375 GM VIAL IVPB ONE ×3 (00:54→17:19)
[2018-07-22] MEDS ORDERED: DEXTROSE 5%-WATER - 50 ML IVPB ONE ×3 (00:54→17:19)
[2018-07-22] MEDS: PIPERACILLIN/TAZOB 3.375 GM 3.375 GM in DEXTROSE 5%-WATER - 50 ML IVPB SCH ×3 (02:07→17:30)
[2018-07-22] MEDS: INSULIN SLIDING SCALE (NOVOLOG) 1 VIAL SQ SCH ×3 (06:01→16:48)
[2018-07-22 08:13] LABS: BASO % 0.7 % (0-2.0); EOS % 3.3 % (0-4.5); HEMATOCRIT 34.4 % (32.4-45.2); HEMOGLOBIN 11.4 GM/dL (10.7-15.3); LYMPH % 37.4 % (8-40); MCHC 33.2 g/dl (32.0-36.0); MEAN CELL VOLUME 81.2 fl (80-96); MEAN PLT VOLUME 8.1 fl (7.5-11.1); NEUT % 51.6 % (42.8-82.8); PLATELET COUNT 255 K/MM3 (134-434); RBC 4.23 M/mm3 (3.60-5.2); RDW 15.1 % (11.6-15.6); WHITE BLOOD COUNT 5.6 K/mm3 (4.0-10.0)
--- NOTE | 2018-07-22 08:16 | PN ---
Progress Note, Physician Chief Complaint: Afebrile stable - Current Medication List Current Medications: Active Medications Acetaminophen (Tylenol -) 650 mg PO Q6H PRN PRN Reason: PAIN Last Admin: 07/22/18 05:59 Dose: 650 mg Amlodipine Besylate (Norvasc -) 10 mg PO DAILY [facility] Last Admin: 07/21/18 09:50 Dose: 10 mg Aspirin (Asa -) 81 mg PO DAILY [facility] Last Admin: 07/21/18 09:50 Dose: 81 mg Collagenase (Santyl -) 1 applic TP DAILY [facility]; Protocol Last Admin: 07/21/18 10:00 Dose: 1 applic Enoxaparin Sodium (Lovenox -) 40 mg SQ DAILY [facility] Last Admin: 07/21/18 09:50 Dose: 40 mg Piperacillin Sod/Tazobactam (Sod 3.375 gm/ Dextrose) 50 mls @ 100 mls/hr IVPB Q8H-IV [facility]; Protocol Last Admin: 07/22/18 02:07 Dose: 100 mls/hr Insulin Aspart (Novolog Vial Sliding Scale -) 1 vial SQ TIDAC [facility]; Protocol Last Admin: 07/22/18 06:01 Dose: Not Given Insulin Detemir (Levemir Vial) 15 units SQ HS [facility] Last Admin: 07/21/18 21:27 Dose: 15 units Multivitamins (Total B With C -) 1 each PO DAILY [facility] Last Admin: 07/21/18 09:51 Dose: 1 each - Objective Vital Signs: Vital Signs Temperature 97.3 F L 07/21/18 18:00 Pulse Rate 82 07/21/18 18:00 Respiratory Rate 20 07/21/18 18:00 Blood Pressure 147/86 07/21/18 18:00 O2 Sat by Pulse Oximetry (%) 96 07/21/18 21:00 Constitutional: Yes: Well Nourished, No Distress, Calm. No: Anxious Neck: Yes: Supple, Trachea Midline. No: Decreased ROM, Lymphadenopathy Cardiovascular: Yes: Regular Rate and Rhythm, S1, S2. No: Bruit, JVD, Murmur Respiratory: Yes: Regular, CTA Bilaterally Gastrointestinal: Yes: Normal Bowel Sounds, Soft Musculoskeletal: Yes: Back Pain Extremities: Yes: Other (Rt footh 5th Toe swelling and discharge) Edema: RUE: 1 +, LLE: 1+ Peripheral Pulses: Left Doralis Pedis: 1+, Right Dorsalis Pedis: 1+ Integumentary: Rt 4th and 5th Toe discharge improved Neurological: Yes: WNL, Alert, Oriented, Motor Strength: WNL, LUE, LLE, RUE, RLE - ....Imaging MRI: Report Reviewed (Rt 4th and 5th Toe OM) Problem List - Problems (1) Abscess of right foot Assessment/Plan: Evaluted by ID and Podiatry needs I and D wound care F/U culture are -ve, cont Zosyn , wound is healing MRI Rt 4th and 5th Toe ? OM will discuss with Podiatry for possible Biopsy to R/O OM. Code(s): L02.611 - CUTANEOUS ABSCESS OF RIGHT FOOT (2) Diabetes mellitus type 2 in obese Assessment/Plan: will hold Po meds cont correction dose insulin Diabetic diet , HbA1C 9.6 increase Basal insulin 15 units Levimir at bed time Code(s): E11.9 - TYPE 2 DIABETES MELLITUS WITHOUT COMPLICATIONS; E66.9 - OBESITY , UNSPECIFIED (3) Essential (primary) hypertension Assessment/Plan: Well controlled cont all home meds Code(s): I10 - ESSENTIAL (PRIMARY) HYPERTENSION (4) Morbid obesity with BMI of 45.0-49.9, adult Assessment/Plan: Nutrional assessment as out patient.
[2018-07-22 08:42] LABS: ANION GAP 8 MMOL/L (8-16); BLOOD UREA NITROGEN 24 mg/dL (7-18); CALCIUM 8.8 mg/dL (8.5-10.1); CHLORIDE 104 mmol/L (98-107); CO2 29 mmol/L (21-32); CREATININE 0.8 mg/dL (0.55-1.3); GLUCOSE,RANDOM 91 mg/dL (74-106); POTASSIUM 4.7 mmol/L (3.5-5.1); SODIUM 141 mmol/L (136-145)
[2018-07-22] MEDS ORDERED: PT OWN MED DRAWER 7, Y5N ONE (09:29)
[2018-07-22] MEDS: ASPIRIN 81 MG CHEWABLE TABLETS PO SCH (09:48)
[2018-07-22] MEDS: ENOXAPARIN NA (PORCINE) 40 MG/0.4 ML DISP.SYRIN SQ SCH (09:48)
[2018-07-22] MEDS: amLODIPine BESYLATE 10 MG TABLET (FP) PO SCH (09:48)
[2018-07-22] MEDS: COLLAGENASE CLOSTRIDIUM HIST. 30 GRAMS TUBE TP SCH (09:49)
[2018-07-22] MEDS: VITAMIN B COMPLEX W/C COMBO TABLET (FP) PO SCH (09:49)
--- NOTE | 2018-07-22 13:31 | PN ---
Progress Note, Physician History of Present Illness: Pt is alert, feels well. Denies pain in Rt foot. Has no specific complaints. - Current Medication List Current Medications: Active Medications Acetaminophen (Tylenol -) 650 mg PO Q6H PRN PRN Reason: PAIN Last Admin: 07/22/18 05:59 Dose: 650 mg Amlodipine Besylate (Norvasc -) 10 mg PO DAILY [facility] Last Admin: 07/22/18 09:48 Dose: 10 mg Aspirin (Asa -) 81 mg PO DAILY [facility] Last Admin: 07/22/18 09:48 Dose: 81 mg Collagenase (Santyl -) 1 applic TP DAILY [facility]; Protocol Last Admin: 07/22/18 09:49 Dose: 1 applic Enoxaparin Sodium (Lovenox -) 40 mg SQ DAILY [facility] Last Admin: 07/22/18 09:48 Dose: 40 mg Piperacillin Sod/Tazobactam (Sod 3.375 gm/ Dextrose) 50 mls @ 100 mls/hr IVPB Q8H-IV [facility]; Protocol Last Admin: 07/22/18 09:48 Dose: 100 mls/hr Insulin Aspart (Novolog Vial Sliding Scale -) 1 vial SQ TIDAC [facility]; Protocol Last Admin: 07/22/18 12:32 Dose: Not Given Insulin Detemir (Levemir Vial) 15 units SQ HS [facility] Last Admin: 07/21/18 21:27 Dose: 15 units Multivitamins (Total B With C -) 1 each PO DAILY [facility] Last Admin: 07/22/18 09:49 Dose: 1 each - Objective Vital Signs: Vital Signs Temperature 98.1 F 07/22/18 09:52 Pulse Rate 83 07/22/18 09:52 Respiratory Rate 18 07/22/18 09:52 Blood Pressure 120/72 07/22/18 09:52 O2 Sat by Pulse Oximetry (%) 96 07/21/18 21:00 Constitutional: Yes: No Distress, Calm Cardiovascular: Yes: Regular Rate and Rhythm Respiratory: Yes: Regular Gastrointestinal: Yes: Normal Bowel Sounds, Soft, Abdomen, Obese Extremities: Yes: Other (Rt foot mild edema, wound without purulence, 4th/5th toe necrotic tip) Integumentary: Yes: WNL Neurological: Yes: Alert, Oriented Labs: CBC, BMP 07/22/18 07:30 07/22/18 07:30 Microbiology 07/17/18 10:45 Blood - Peripheral Venous Blood Culture - Final NO GROWTH AFTER 5 DAYS INCUBATION 07/17/18 11:00 Blood - Peripheral Venous Blood Culture - Final NO GROWTH AFTER 5 DAYS INCUBATION 07/17/18 13:45 Nares - Mrsa Screen - Right MRSA Screen - Final NO MRSA ISOLATED 07/17/18 13:45 Nares - Mrsa Screen - Left MRSA Screen - Final NO MRSA ISOLATED Problem List - Problems (1) Diabetic foot ulcer Code(s): E11.621 - TYPE 2 DIABETES MELLITUS WITH FOOT ULCER; L97.509 - NON- PRESSURE CHRONIC ULCER OTH PRT UNSP FOOT W UNSP SEVERITY Qualifiers: Diabetic foot ulcer location: toe Diabetes mellitus type: type 1 Laterality: right Non-pressure ulcer stage: limited to breakdown of skin Qualified Code(s): E10.621 - Type 1 diabetes mellitus with foot ulcer; L97.511 - Non-pressure chronic ulcer of other part of right foot limited to breakdown of skin (2) Morbid obesity with BMI of 45.0-49.9, adult Code(s): E66.01 - MORBID (SEVERE) OBESITY DUE TO EXCESS CALORIES; Z68.42 - BODY MASS INDEX (BMI) 45.0-49.9, ADULT (3) Diabetes mellitus type 2 in obese Code(s): E11.9 - TYPE 2 DIABETES MELLITUS WITHOUT COMPLICATIONS; E66.9 - OBESITY , UNSPECIFIED (4) Essential (primary) hypertension Code(s): I10 - ESSENTIAL (PRIMARY) HYPERTENSION Assessment/Plan Rt foot cellulitis - improving Rt Diabetic foot ulcer infection Possible OM of Rt 4th/5th toe OM -- cont. current antibiotics -- HBO -- Podiatry following -- continue wound care
[2018-07-22] MEDS: INSULIN (LEVEMIR) 100 UNITS/ML UNITS SQ SCH (21:41)
[2018-07-23] MEDS ORDERED: PIPERACILLIN/TAZOBACTAM 3.375 GM VIAL IVPB ONE ×3 (02:12→17:22)
[2018-07-23] MEDS ORDERED: DEXTROSE 5%-WATER - 50 ML IVPB ONE ×3 (02:13→17:22)
[2018-07-23] MEDS: PIPERACILLIN/TAZOB 3.375 GM 3.375 GM in DEXTROSE 5%-WATER - 50 ML IVPB SCH ×3 (02:23→17:32)
[2018-07-23 07:39] LABS: BASO % 0.6 % (0-2.0); EOS % 3.8 % (0-4.5); HEMATOCRIT 31.3 % (32.4-45.2); HEMOGLOBIN 11.2 GM/dL (10.7-15.3); LYMPH % 35.3 % (8-40); MCH 28.8 pg (25.7-33.7); MCHC 35.8 g/dl (32.0-36.0); MEAN CELL VOLUME 80.5 fl (80-96); MEAN PLT VOLUME 8.4 fl (7.5-11.1); MONO % 8.5 % (3.8-10.2); NEUT % 51.8 % (42.8-82.8); PLATELET COUNT 258 K/MM3 (134-434); RBC 3.89 M/mm3 (3.60-5.2); RDW 15.2 % (11.6-15.6); WHITE BLOOD COUNT 5.4 K/mm3 (4.0-10.0)
[2018-07-23] MEDS ORDERED: INSULIN (NOVOLOG) ASPART 100 UNITS/ML 10ML VIAL ONE (08:05)
[2018-07-23] MEDS: INSULIN SLIDING SCALE (NOVOLOG) 1 VIAL SQ SCH ×3 (08:08→17:32)
[2018-07-23 08:30] LABS: ANION GAP 7 MMOL/L (8-16); BLOOD UREA NITROGEN 29 mg/dL (7-18); CALCIUM 8.7 mg/dL (8.5-10.1); CHLORIDE 104 mmol/L (98-107); CO2 27 mmol/L (21-32); GLUCOSE,RANDOM 119 mg/dL (74-106); POTASSIUM 4.9 mmol/L (3.5-5.1); SODIUM 137 mmol/L (136-145)
--- NOTE | 2018-07-23 08:57 | PN ---
Progress Note, Physician Chief Complaint: Afebrile stable - Current Medication List Current Medications: Active Medications Acetaminophen (Tylenol -) 650 mg PO Q6H PRN PRN Reason: PAIN Last Admin: 07/22/18 05:59 Dose: 650 mg Amlodipine Besylate (Norvasc -) 10 mg PO DAILY [facility] Last Admin: 07/22/18 09:48 Dose: 10 mg Aspirin (Asa -) 81 mg PO DAILY [facility] Last Admin: 07/22/18 09:48 Dose: 81 mg Collagenase (Santyl -) 1 applic TP DAILY [facility]; Protocol Last Admin: 07/22/18 09:49 Dose: 1 applic Enoxaparin Sodium (Lovenox -) 40 mg SQ DAILY [facility] Last Admin: 07/22/18 09:48 Dose: 40 mg Piperacillin Sod/Tazobactam (Sod 3.375 gm/ Dextrose) 50 mls @ 100 mls/hr IVPB Q8H-IV [facility]; Protocol Last Admin: 07/23/18 02:23 Dose: 100 mls/hr Insulin Aspart (Novolog Vial Sliding Scale -) 1 vial SQ TIDAC [facility]; Protocol Last Admin: 07/23/18 08:08 Dose: Not Given Insulin Detemir (Levemir Vial) 15 units SQ HS [facility] Last Admin: 07/22/18 21:41 Dose: 15 units Multivitamins (Total B With C -) 1 each PO DAILY [facility] Last Admin: 07/22/18 09:49 Dose: 1 each - Objective Vital Signs: Vital Signs Temperature 98.5 F 07/23/18 06:00 Pulse Rate 78 07/23/18 06:00 Respiratory Rate 20 07/23/18 06:00 Blood Pressure 127/68 07/23/18 06:00 O2 Sat by Pulse Oximetry (%) 97 07/22/18 21:00 Constitutional: Yes: Well Nourished, No Distress, Calm. No: Anxious Neck: Yes: Supple, Trachea Midline. No: Decreased ROM, Lymphadenopathy Cardiovascular: Yes: Regular Rate and Rhythm, S1, S2. No: Bruit, JVD, Murmur Respiratory: Yes: Regular, CTA Bilaterally Gastrointestinal: Yes: Normal Bowel Sounds, Soft Musculoskeletal: Yes: Back Pain Extremities: Yes: Other (Rt footh 5th Toe swelling and discharge) Edema: RUE: 1 +, LLE: 1+ Peripheral Pulses: Left Doralis Pedis: 1+, Right Dorsalis Pedis: 1+ Integumentary: Rt 4th and 5th Toe discharge improved Neurological: Yes: WNL, Alert, Oriented, Motor Strength: WNL, LUE, LLE, RUE, RLE Labs: CBC, BMP 07/23/18 06:25 07/23/18 06:25 Problem List - Problems (1) Abscess of right foot Assessment/Plan: Evaluted by ID and Podiatry needs I and D wound care F/U culture are -ve, cont Zosyn , wound is healing MRI Rt 4th and 5th Toe ? OM will discuss with Podiatry for possible Biopsy to R/O OM. Code(s): L02.611 - CUTANEOUS ABSCESS OF RIGHT FOOT (2) Diabetes mellitus type 2 in obese Assessment/Plan: will hold Po meds cont correction dose insulin Diabetic diet , HbA1C 9.6 increase Basal insulin 15 units Levimir at bed time Code(s): E11.9 - TYPE 2 DIABETES MELLITUS WITHOUT COMPLICATIONS; E66.9 - OBESITY , UNSPECIFIED (3) Essential (primary) hypertension Assessment/Plan: Well controlled cont all home meds Code(s): I10 - ESSENTIAL (PRIMARY) HYPERTENSION (4) Morbid obesity with BMI of 45.0-49.9, adult Assessment/Plan: Nutrional assessment as out patient.
[2018-07-23] MEDS ORDERED: PT OWN MED DRAWER 7, Y5N ONE (10:29)
[2018-07-23] MEDS: ASPIRIN 81 MG CHEWABLE TABLETS PO SCH (10:34)
[2018-07-23] MEDS: ENOXAPARIN NA (PORCINE) 40 MG/0.4 ML DISP.SYRIN SQ SCH (10:34)
[2018-07-23] MEDS: amLODIPine BESYLATE 10 MG TABLET (FP) PO SCH (10:35)
[2018-07-23] MEDS: VITAMIN B COMPLEX W/C COMBO TABLET (FP) PO SCH (10:35)
[2018-07-23] MEDS: COLLAGENASE CLOSTRIDIUM HIST. 30 GRAMS TUBE TP SCH (10:38)
--- NOTE | 2018-07-23 14:46 | PN ---
Progress Note, Physician History of Present Illness: stable no new issues wound looks better podiatry on case - Current Medication List Current Medications: Active Medications Acetaminophen (Tylenol -) 650 mg PO Q6H PRN PRN Reason: PAIN Last Admin: 07/22/18 05:59 Dose: 650 mg Amlodipine Besylate (Norvasc -) 10 mg PO DAILY [facility] Last Admin: 07/23/18 10:35 Dose: 10 mg Aspirin (Asa -) 81 mg PO DAILY [facility] Last Admin: 07/23/18 10:34 Dose: 81 mg Collagenase (Santyl -) 1 applic TP DAILY [facility]; Protocol Last Admin: 07/23/18 10:38 Dose: 1 applic Enoxaparin Sodium (Lovenox -) 40 mg SQ DAILY [facility] Last Admin: 07/23/18 10:34 Dose: 40 mg Piperacillin Sod/Tazobactam (Sod 3.375 gm/ Dextrose) 50 mls @ 100 mls/hr IVPB Q8H-IV [facility]; Protocol Last Admin: 07/23/18 10:35 Dose: 100 mls/hr Insulin Aspart (Novolog Vial Sliding Scale -) 1 vial SQ TIDAC [facility]; Protocol Last Admin: 07/23/18 12:12 Dose: Not Given Insulin Detemir (Levemir Vial) 15 units SQ HS [facility] Last Admin: 07/22/18 21:41 Dose: 15 units Multivitamins (Total B With C -) 1 each PO DAILY [facility] Last Admin: 07/23/18 10:35 Dose: 1 each - Objective Vital Signs: Vital Signs Temperature 98.3 F 07/23/18 10:41 Pulse Rate 84 07/23/18 10:41 Respiratory Rate 19 07/23/18 10:41 Blood Pressure 148/79 07/23/18 10:41 O2 Sat by Pulse Oximetry (%) 97 07/22/18 21:00 Constitutional: Yes: No Distress, Calm Cardiovascular: Yes: Regular Rate and Rhythm Respiratory: Yes: Regular, CTA Bilaterally Gastrointestinal: Yes: Normal Bowel Sounds, Soft Musculoskeletal: Yes: WNL Extremities: Yes: Other Wound/Incision: Yes: Dressing Dry and Intact Neurological: Yes: Alert, Oriented Psychiatric: Yes: Alert, Oriented Labs: CBC, BMP 07/23/18 06:25 07/23/18 06:25 Assessment/Plan this patient with multiple medical problems and foot problems cellulitis diabetic wound dm with neuropathy r/o osteo plan will d/w podiatry will consider stopping abx might need bone biopsy rest as per the team
--- NOTE | 2018-07-23 14:53 | PN ---
Progress Note (short form) - Note Progress Note: Pt seen in bed. vss, tmax 98.5 +necrotic tips of toes 4&5 right, +om on mri, resolved cellulitis Necrotic tissue tips of toes 4&5 resolving abscess om No dressing on forefoot. Santyl dressing change to toes and abscess area. HBO to start on dc. Follow up in wound care. IVABX as per ID. Post op shoe right. Will follow. No need for bone biopsy at this time.
[2018-07-23] MEDS: INSULIN (LEVEMIR) 100 UNITS/ML UNITS SQ SCH (21:46)
[2018-07-24] MEDS ORDERED: PIPERACILLIN/TAZOBACTAM 3.375 GM VIAL IVPB ONE ×2 (00:54→09:44)
[2018-07-24] MEDS ORDERED: DEXTROSE 5%-WATER - 50 ML IVPB ONE ×2 (00:54→09:44)
[2018-07-24] MEDS: PIPERACILLIN/TAZOB 3.375 GM 3.375 GM in DEXTROSE 5%-WATER - 50 ML IVPB SCH ×3 (02:15→18:02)
[2018-07-24 06:09] LABS: BASO % 0.8 % (0-2.0); EOS % 4.4 % (0-4.5); HEMATOCRIT 33.6 % (32.4-45.2); HEMOGLOBIN 11.4 GM/dL (10.7-15.3); LYMPH % 37.1 % (8-40); MCH 27.2 pg (25.7-33.7); MEAN CELL VOLUME 80.2 fl (80-96); MEAN PLT VOLUME 8.3 fl (7.5-11.1); MONO % 7.1 % (3.8-10.2); NEUT % 50.6 % (42.8-82.8); PLATELET COUNT 246 K/MM3 (134-434); RBC 4.18 M/mm3 (3.60-5.2); WHITE BLOOD COUNT 5.4 K/mm3 (4.0-10.0)
[2018-07-24] MEDS: INSULIN SLIDING SCALE (NOVOLOG) 1 VIAL SQ SCH ×3 (06:09→16:59)
[2018-07-24 06:28] LABS: ANION GAP 6 MMOL/L (8-16); BLOOD UREA NITROGEN 26 mg/dL (7-18); CALCIUM 8.7 mg/dL (8.5-10.1); CHLORIDE 104 mmol/L (98-107); CO2 28 mmol/L (21-32); CREATININE 0.9 mg/dL (0.55-1.3); GLUCOSE,RANDOM 140 mg/dL (74-106); POTASSIUM 4.6 mmol/L (3.5-5.1); SODIUM 137 mmol/L (136-145)
[2018-07-24] MEDS: ASPIRIN 81 MG CHEWABLE TABLETS PO SCH (11:18)
[2018-07-24] MEDS: amLODIPine BESYLATE 10 MG TABLET (FP) PO SCH (11:18)
[2018-07-24] MEDS: ENOXAPARIN NA (PORCINE) 40 MG/0.4 ML DISP.SYRIN SQ SCH (11:18)
[2018-07-24] MEDS ORDERED: INSULIN (NOVOLOG) ASPART 100 UNITS/ML 10ML VIAL ONE (11:21)
[2018-07-24] MEDS ORDERED: PT OWN MED DRAWER 7, Y5N ONE (11:21)
[2018-07-24] MEDS: VITAMIN B COMPLEX W/C COMBO TABLET (FP) PO SCH (11:22)
--- NOTE | 2018-07-24 14:20 | PN ---
Progress Note, Physician History of Present Illness: stable no complaints - Current Medication List Current Medications: Active Medications Acetaminophen (Tylenol -) 650 mg PO Q6H PRN PRN Reason: PAIN Last Admin: 07/22/18 05:59 Dose: 650 mg Amlodipine Besylate (Norvasc -) 10 mg PO DAILY [facility] Last Admin: 07/24/18 11:18 Dose: 10 mg Aspirin (Asa -) 81 mg PO DAILY [facility] Last Admin: 07/24/18 11:18 Dose: 81 mg Collagenase (Santyl -) 1 applic TP DAILY [facility]; Protocol Last Admin: 07/23/18 10:38 Dose: 1 applic Enoxaparin Sodium (Lovenox -) 40 mg SQ DAILY [facility] Last Admin: 07/24/18 11:18 Dose: 40 mg Piperacillin Sod/Tazobactam (Sod 3.375 gm/ Dextrose) 50 mls @ 100 mls/hr IVPB Q8H-IV [facility]; Protocol Last Admin: 07/24/18 11:16 Dose: 100 mls/hr Insulin Aspart (Novolog Vial Sliding Scale -) 1 vial SQ TIDAC [facility]; Protocol Last Admin: 07/24/18 11:22 Dose: 2 units Insulin Detemir (Levemir Vial) 15 units SQ HS [facility] Last Admin: 07/23/18 21:46 Dose: 15 units Multivitamins (Total B With C -) 1 each PO DAILY [facility] Last Admin: 07/24/18 11:22 Dose: 1 each - Objective Vital Signs: Vital Signs Temperature 97.5 F L 07/24/18 09:40 Pulse Rate 79 07/24/18 09:40 Respiratory Rate 18 07/24/18 09:40 Blood Pressure 150/84 07/24/18 09:40 O2 Sat by Pulse Oximetry (%) 99 07/23/18 09:00 Constitutional: Yes: No Distress, Calm Cardiovascular: Yes: Regular Rate and Rhythm Respiratory: Yes: Regular, CTA Bilaterally Gastrointestinal: Yes: Normal Bowel Sounds, Soft Musculoskeletal: Yes: WNL Extremities: Yes: Other Neurological: Yes: Alert, Oriented Psychiatric: Yes: Alert, Oriented Labs: CBC, BMP 07/24/18 05:35 07/24/18 05:35 Assessment/Plan this patient with multiple medical problems and foot problems cellulitis diabetic wound dm with neuropathy r/o osteo plan can discharge the patient without any abx patient to come to wound care for bone biopsy once we have bone biopsy done will decide further management
--- NOTE | 2018-07-24 15:10 | PN ---
Progress Note (short form) - Note Progress Note: Pt seen in bed. vss, tmax 97.7 +necrotic tips of toes 4&5 right, +om on mri, resolved cellulitis Necrotic tissue tips of toes 4&5 resolving abscess om Discussed with Dr. Lindsey. Wants a bone biopsy done on Monday without antibiotics on board. Scheduled for 10am on Monday to have done outpatient.
[2018-07-24 15:20] VITALS: BP 156/77; PULSE 89; TEMP 97.9
[2018-07-24] MEDS: COLLAGENASE CLOSTRIDIUM HIST. 30 GRAMS TUBE TP SCH (16:58)
--- NOTE | 2018-07-24 17:21 | DS ---
Physical Examination Vital Signs: Vital Signs Temperature 97.9 F 07/24/18 14:18 Pulse Rate 89 07/24/18 14:18 Respiratory Rate 20 07/24/18 14:18 Blood Pressure 156/77 07/24/18 14:18 O2 Sat by Pulse Oximetry (%) 99 07/23/18 09:00 Constitutional: Yes: Well Nourished, No Distress, Calm. No: Anxious Neck: Yes: Supple, Trachea Midline. No: Decreased ROM, Lymphadenopathy Cardiovascular: Yes: Regular Rate and Rhythm, S1, S2. No: Bruit, JVD, Murmur Respiratory: Yes: Regular, CTA Bilaterally Gastrointestinal: Yes: Normal Bowel Sounds, Soft Musculoskeletal: Yes: Back Pain Extremities: Yes: Other (Rt footh 5th Toe swelling and discharge) Edema: RUE: 1 +, LLE: 1+ Peripheral Pulses: Left Doralis Pedis: 1+, Right Dorsalis Pedis: 1+ Integumentary: Rt 4th and 5th Toe discharge improved Neurological: Yes: WNL, Alert, Oriented, Motor Strength: WNL, LUE, LLE, RUE, RLE Labs: CBC, BMP 07/24/18 05:35 07/24/18 05:35 Discharge Summary Reason For Visit: DIABETIC FOOT INFECTION Current Active Problems Diabetic foot ulcer (Acute) Morbid obesity with BMI of 45.0-49.9, adult (Acute) Hospital Course: 47 yrs old F with H/o T2DM, Morbid obesity, Diabetic foot ulcer preset with worsening pain swelling and discharged from Rt foot 5th toe abscess formation, yesterday visited wound care Ctr , referred to Ed for hospitalization for IV abx , 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 MRI shows Rt 4th and 5th Toe OM , intially recived IV V abx for IV abx stopped pending Bone Biopsy as out patient. Patient is discharged home./ Condition: Good - Instructions Referrals: Carlos Vann MD [Primary Care Provider] - 1 Month Philipp Gomez DPM [Staff Physician] - 07/27/18 Disposition: HOME - Home Medications Comprehensive Discharge Medication List: Ambulatory Orders Aspirin [ASA -] 81 mg PO DAILY 08/31/16 Amlodipine Besylate [Norvasc -] 10 mg PO DAILY #30 tablet 07/24/18 Aspirin [ASA -] 81 mg PO DAILY #30 tab.chew 07/24/18 Collagenase Clostridium Hist. [Santyl -] 1 applic TP DAILY #1 tube 07/24/18 Glipizide 1 gm MC AM #30 powder 07/24/18 Metformin HCl [Glucophage] 1,000 mg PO BID #60 tablet 07/24/18 Vitamin B Comp W-C [Total B with C -] 1 each PO DAILY #30 tablet 07/24/18
[2018-07-25] MEDS ORDERED: glipiZIDE 5 MG TABLET (FP) PO SCH (07:00)
--- NOTE | 2018-09-28 20:33 | EKG ---
Test Reason : Blood Pressure : / mmHG Vent. Rate : 095 BPM Atrial Rate : 095 BPM P-R Int : 170 ms QRS Dur : 084 ms QT Int : 360 ms P-R-T Axes : 031 025 062 degrees QTc Int : 452 ms NORMAL SINUS RHYTHM NORMAL ECG NO PREVIOUS ECGS AVAILABLE Confirmed by TRU MAJOR, ABBY ([id number]) on 09/28/2018 8:33:10 PM Referred By: Confirmed By:ABBY OTT MD
== END 2018-07-24 18:00 | disposition home or self-care (01) | DRG 638 ==
LOC: JER 09:46 → JERBED 11:45 → J5S 17:58
PROVIDERS: ADMIT Internal Medicine; ATTEND Internal Medicine
DX: E10.621 Type 1 diabetes mellitus with foot ulcer (principal); L97.518 Non-pressure chronic ulcer of other part of right foot with other specified severity; L03.115 Cellulitis of right lower limb; Z68.42 Body mass index [BMI] 45.0-49.9, adult; L02.611 Cutaneous abscess of right foot; M86.9 Osteomyelitis, unspecified; E10.40 Type 1 diabetes mellitus with diabetic neuropathy, unspecified; E66.01 Morbid (severe) obesity due to excess calories; E10.69 Type 1 diabetes mellitus with other specified complication; I10 Essential (primary) hypertension; E78.5 Hyperlipidemia, unspecified; Z87.891 Personal history of nicotine dependence
CPT/HCPCS: 36415; 73630-TC-RT-FY; 73718-TC; 80048; 80053; 82962; 83036; 84443; 85025; 85651; 86140; 87040; 87081; 90670; 90688; 93005; 93010; 99284-25; G0008; G0009

== ENCOUNTER 2018-09-26 11:06 | Inpatient (IN) | payer OTHER ==
--- NOTE | 2018-09-26 12:31 | PDOC ---
History of Present Illness - General History Source: Patient Exam Limitations: No Limitations - History of Present Illness Initial Comments: 09/26/18 13:03 The patient is a 48-year-old female, with a past medical history of HTN, HLD, IDDM, hypothyroidism, who presents to the ED with a RT great toe and 2nd toe wounds. Patient states that the wounds initially began as bleeding blisters, which she noted on Monday 09/18. The patient went to [facility] on Monday, had an X-Ray, and was prescribed antibiotics. 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 The patient denies any fever, chills, nausea, vomiting, diarrhea, or abdominal pain. Denies any chest pain or shortness of breath. Allergies: NKA Social History: None reported. Surgical History: None reported. Tractor Engine Assembler: Dr. Delgado [phone] <Jenniffer Zhou - Last Filed: 09/26/18 13:12> <Jorge Luis Moreland - Last Filed: 09/26/18 16:14> - General Chief Complaint: Wound Stated Complaint: RT FOOT PAIN, sent for admit Time Seen by Provider: 09/26/18 12:31 Past History <Jenniffer Zhou - Last Filed: 09/26/18 13:12> - Past Medical History Anemia: No Asthma: No Cancer: No Cardiac Disorders: No CVA: No COPD: No CHF: No Dementia: No Diabetes: Yes (IDDM) GI Disorders: No Disorders: No HTN: Yes Hypercholesterolemia: Yes Liver Disease: No Seizures: No Thyroid Disease: Yes (HYPOTHYROIDISM) - Surgical History Orthopedic Surgery: Yes - Immunization History Immunization Up to Date: Yes - Suicide/Smoking/Psychosocial Hx Smoking History: Never smoked Have you smoked in the past 12 months: Yes Number of Cigarettes Smoked Daily: 6 If you are a former smoker, when did you quit?: 2 years ago Information on smoking cessation initiated: No Hx Alcohol Use: No Drug/Substance Use Hx: No Substance Use Type: None <Jorge Luis Moreland - Last Filed: 09/26/18 16:14> - Past Medical History Allergies/Adverse Reactions: Allergies Allergy/AdvReac Type Severity Reaction Status Date / Time No Known Allergies Allergy Verified 09/26/18 11:21 Home Medications: Ambulatory Orders Amlodipine Besylate [Norvasc -] 10 mg PO DAILY #30 tablet 07/24/18 Aspirin [ASA -] 81 mg PO DAILY #30 tab.chew 07/24/18 Collagenase Clostridium Hist. [Santyl -] 1 applic TP DAILY #1 tube 07/24/18 Glipizide 5 mg PO AM 30 Days #30 tablet 07/24/18 Metformin HCl [Glucophage] 1,000 mg PO BID #60 tablet 07/24/18 Vitamin B Comp W-C [Total B with C -] 1 each PO DAILY #30 tablet 07/24/18 Doxycycline Monohydrate [Mondoxyne Nl] 100 mg PO BID 09/26/18 Insulin (Novolog 70/30) [Novolog Mix 70/30 Vial] 0 ml SQ ASDIR 09/26/18 Review of Systems - Review of Systems Able to Perform ROS?: Yes Comments:: 09/26/18 13:11 CONSTITUTIONAL: No fever, no chills, no fatigue EYES: No visual changes ENT: No ear pain, no sore throat CARDIOVASCULAR: No chest pain, no palpitations RESPIRATORY: No cough, no SOB GI: No abdominal pain, no nausea, no vomiting, no constipation, no diarrhea GENITOURINARY: No dysuria, no frequency, no hematuria MUSKULOSKELETAL: No back pain, no joint pain, no myalgias SKIN: (+)RT foot wound NEURO: No headache <Jenniffer Zhou - Last Filed: 09/26/18 13:12> *Physical Exam - Vital Signs Last Vital Signs Temp Pulse Resp BP Pulse Ox 97.5 F L 99 H 19 116/54 L 98 09/26/18 11:18 09/26/18 11:18 09/26/18 11:18 09/26/18 11:18 09/26/18 11:18 <Jenniffer Zhou - Last Filed: 09/26/18 13:12> - Vital Signs Last Vital Signs Temp Pulse Resp BP Pulse Ox 97.5 F L 99 H 19 116/54 L 98 09/26/18 11:18 09/26/18 11:18 09/26/18 11:18 09/26/18 11:18 09/26/18 11:18 - Physical Exam Comments: 09/26/18 16:09 EXAMINATION CONSTITUTIONAL: Well-appearing; well-nourished; in no apparent distress HEAD: Normocephalic; atraumatic EYES: PERRL; EOM intact ENMT: External appears normal; normal oropharynx NECK: Supple; non-tender; no cervical lymphadenopathy CARD: Normal S1, S2; no murmurs, rubs, or gallops RESP: Normal chest excursion with respiration; breath sounds clear and equal bilaterally; no wheezes, rhonchi, or rales ABD: Soft, non-distended; non-tender; no palpable organomegaly, no palpable hernias EXT: Right foot: + Large area of denuded skin to the plantar and medial aspect of the foot, with a smaller blister to the dorsum of the distal phalanx of the second digit of the right foot; + discoloration of the distal phalanx of the first and second toes the right foot consistent with wet gangrene; dp/tp: + 2 SKIN: Warm, dry, NEURO: No focal neurological deficiencies. <Jorge Luis Moreland - Last Filed: 09/26/18 16:14> Moderate Sedation - Procedure Monitoring Vital Signs: Procedure Monitoring Vital Signs Temperature 97.5 F L 09/26/18 11:18 Pulse Rate 99 H 09/26/18 11:18 Respiratory Rate 09/26/18 11:18 Blood Pressure 116/54 L 09/26/18 11:18 O2 Sat by Pulse Oximetry (%) 98 09/26/18 11:18 <Jenniffer Zhou - Last Filed: 09/26/18 13:12> - Procedure Monitoring Vital Signs: Procedure Monitoring Vital Signs Temperature 97.5 F L 09/26/18 11:18 Pulse Rate 99 H 09/26/18 11:18 Respiratory Rate 09/26/18 11:18 Blood Pressure 116/54 L 09/26/18 11:18 O2 Sat by Pulse Oximetry (%) 98 09/26/18 11:18 <Jorge Luis Moreland - Last Filed: 09/26/18 16:14> ED Treatment Course - LABORATORY CBC & Chemistry Diagram: 09/26/18 12:47 09/26/18 12:47 <Jenniffer Zhou - Last Filed: 09/26/18 13:12> - LABORATORY CBC & Chemistry Diagram: 09/26/18 12:47 09/26/18 12:47 <Jorge Luis Moreland - Last Filed: 09/26/18 16:14> Medical Decision Making - Medical Decision Making 09/26/18 16:11 Patient is a 48-year-old female with history of poorly controlled diabetes who presents to the ER with a large denuded blister of the right foot and associated cellulitis and gangrene. Underlying osteomyelitis is suspected. Case discussed with Dr. Delgado of podiatry. Will admit, we'll administer broad- spectrum antibiotics. Will consult podiatry, infectious disease <Jorge Luis Moreland - Last Filed: 09/26/18 16:14> *DC/Admit/Observation/Transfer - Attestations Scribe Attestion: 09/26/18 13:12 Documentation prepared by Jenniffer Zhou, acting as medical physics professor for Jorge Luis Moreland MD. <Jenniffer Zhou - Last Filed: 09/26/18 13:12> - Discharge Dispostion Decision to Admit order: Yes - Attestations Physician Attestion: 09/26/18 16:08 The documentation was prepared by the scribe under my direct supervision. I have reviewed the documentation which correctly represents the findings, medical decision-making and critical action taken by me. <Jorge Luis Moreland - Last Filed: 09/26/18 16:14> Diagnosis at time of Disposition: Diabetic foot ulcer Qualifiers: Diabetic foot ulcer location: midfoot Diabetes mellitus type: other specified ( including JONNA) Laterality: right Non-pressure ulcer stage: unspecified non- pressure ulcer stage Qualified Code(s): E13.621 - Other specified diabetes mellitus with foot ulcer; L97.419 - Non-pressure chronic ulcer of right heel and midfoot with unspecified severity Cellulitis and abscess of toe Qualifiers: Laterality: right Qualified Code(s): L03.031 - Cellulitis of right toe; L02.611 - Cutaneous abscess of right foot - Discharge Dispostion Condition at time of disposition: Fair - Referrals Referrals: Carlos Vann MD [Primary Care Provider] -
[2018-09-26 13:04] LABS: HCG,QUALITATIVE URINE Negative
[2018-09-26 13:07] LABS: URINE APPEARANCE SLCLOUDY; URINE BILIRUBIN NEGATIVE (<2.0 mg/dL); URINE COLOR YELLOW; URINE GLUCOSE (UA) NEGATIVE (NEGATIVE); URINE KETONE NEGATIVE (NEGATIVE); URINE LEUK ESTERASE NEGATIVE (NEGATIVE); URINE NITRITE NEGATIVE (NEGATIVE); URINE PROTEIN 2+ (NEGATIVE); URINE UROBILINOGEN NEGATIVE mg/dL (0.2-1.0)
[2018-09-26 13:11] LABS: BASO % 0.5 % (0-2.0); EOS % 1.9 % (0-4.5); LYMPH % 20.2 % (8-40); MCH 29.1 pg (25.7-33.7); MCHC 35.4 g/dl (32.0-36.0); MEAN CELL VOLUME 82.4 fl (80-96); MEAN PLT VOLUME 8.2 fl (7.5-11.1); MONO % 5.2 % (3.8-10.2); NEUT % 72.2 % (42.8-82.8); PLATELET COUNT 250 K/MM3 (134-434); RBC 3.77 M/mm3 (3.60-5.2); RDW 15.4 % (11.6-15.6); WHITE BLOOD COUNT 8.1 K/mm3 (4.0-10.0)
[2018-09-26 13:29] LABS: ALBUMIN 3.4 g/dl (3.4-5.0); ALK PHOS 117 U/L (45-117); ANION GAP 7 MMOL/L (8-16); BILIRUBIN,TOTAL 0.2 mg/dL (0.2-1); BLOOD UREA NITROGEN 31 mg/dL (7-18); CALCIUM 9.1 mg/dL (8.5-10.1); CHLORIDE 106 mmol/L (98-107); CO2 28 mmol/L (21-32); GLUCOSE,RANDOM 139 mg/dL (74-106); POTASSIUM 4.2 mmol/L (3.5-5.1); SGOT/AST 11 U/L (15-37); SGPT/ALT 19 U/L (13-61); SODIUM 141 mmol/L (136-145); TOT PROT 7.1 g/dl (6.4-8.2)
[2018-09-26 13:30] LABS: INR 0.99 (0.83-1.09); PROTHROMBIN TIME (PATIENT) 11.7 SEC (9.7-13.0)
[2018-09-26 13:40] LABS: EPI CELLS RARE /HPF (FEW); URINE MUCUS RARE
[2018-09-26 14:34] LABS: ERYTHROCYTE SEDIMENTATION RATE 69 mm/hr (0-20)
[2018-09-26] MEDS ORDERED: PIPERACILLIN/TAZOB 3.375 GM 3.375 GM in DEXTROSE 5%-WATER - 50 ML IVPB ONE (15:25)
[2018-09-26] MEDS ORDERED: VANCOMYCIN HCL 1,500 MG in DEXTROSE 5%-WATER - 500 ML IVPB ONE (15:27)
[2018-09-26] MEDS ORDERED: PIPERACILLIN/TAZOB 3.375 GM 3.375 GM/50 ML BAG IVPB ONE (15:52)
[2018-09-26] MEDS: INSULIN (NOVOLOG MIX 70/30) 100 UNITS/ML MDV SQ SCH (22:42)
[2018-09-27] MEDS: INSULIN (NOVOLOG MIX 70/30) 100 UNITS/ML MDV SQ SCH ×2 (07:38→17:05)
[2018-09-27] MEDS: metFORMIN HCL 500 MG TABLET (FP) PO SCH ×2 (07:38→17:05)
[2018-09-27] MEDS: glipiZIDE 5 MG TABLET (FP) PO SCH (07:41)
--- NOTE | 2018-09-27 09:19 | CONSULT ---
Consult Consult Specialty:: podiatry Reason for Consultation:: wounds b/l feet right greater than left - History of Present Illness Chief Complaint: Wound right foot over 9 days ago. Blister left foot 4th plantar interspace. History of Present Illness: b/l feet new wounds. TX at [facility] last Monday. DC Monday. Patient followed up with Dr. Delgado at [address] [place] [address] and was referred [place] and tx. - History Source History Provided By: Patient, Medical Record Limitations to Obtaining History: Uncooperative - Past Medical History ...LMP: 10/24/16 ...: No Endocrine: Yes: Diabetes Mellitus - Alcohol/Substance Use Hx Alcohol Use: Yes - Smoking History Smoking history: Never smoked Have you smoked in the past 12 months: No Aproximately how many cigarettes per day: 6 If you are a former smoker, when did you quit?: 2 years ago - Social History History of Recent Travel: No Home Medications - Allergies Allergies/Adverse Reactions: Allergies Allergy/AdvReac Type Severity Reaction Status Date / Time No Known Allergies Allergy Verified 09/26/18 11:21 - Home Medications Home Medications: Ambulatory Orders Amlodipine Besylate [Norvasc -] 10 mg PO DAILY #30 tablet 07/24/18 Aspirin [ASA -] 81 mg PO DAILY #30 tab.chew 07/24/18 Collagenase Clostridium Hist. [Santyl -] 1 applic TP DAILY #1 tube 07/24/18 Glipizide 5 mg PO AM 30 Days #30 tablet 07/24/18 Metformin HCl [Glucophage] 1,000 mg PO BID #60 tablet 07/24/18 Vitamin B Comp W-C [Total B with C -] 1 each PO DAILY #30 tablet 07/24/18 Doxycycline Monohydrate [Mondoxyne Nl] 100 mg PO BID 09/26/18 Insulin (Novolog 70/30) [Novolog Mix 70/30 Vial] 0 ml SQ ASDIR 09/26/18 Family Disease History - Family Disease History Family Disease History: Diabetes: Mother (COPD, Brast Cancer) Physical Exam Vital Signs: Vital Signs Temperature 97.7 F 09/27/18 05:46 Pulse Rate 84 09/27/18 05:46 Respiratory Rate 18 09/27/18 05:46 Blood Pressure 149/77 09/27/18 05:46 O2 Sat by Pulse Oximetry (%) 97 09/26/18 20:07 Extremities: Yes: Other (wound right foot plantar to toes 1&2, +cellulitis right foot, blister left foot between toes 4&5 left foot) Labs: CBC, BMP 09/26/18 12:47 09/26/18 12:47 Assessment/Plan wounds b/l feet dm with neuropathy non compliant patient Betadine dressing to wounds b/l feet. xray right reviewed. Abx as per ID. Wound c&s.
--- NOTE | 2018-09-27 09:40 | HP ---
DATE OF ADMISSION: 09/26/2018 This is a 48-year-old female, diabetic, admitted with right foot ulcer. She is on insulin twice a day, 75/25. She had problems with her right foot before. She was hyperbaric oxygen. The wound healed. That was on her 4th and 5th toes. Now, she has an ulcer on her big toe. According to her, she had gone to a foot doctor and was on p.o. antibiotics. Wound was not getting better, so came to the ER. Today, she still has pain at the right foot because of the ulcer. PHYSICAL EXAMINATION: Vital Signs: Blood pressure 150/80, pulse 84, respirations 20, temperature 98. HEENT: Unremarkable. Neck: Supple. No JVD. Lungs: Clear. Heart: S1, S2 normal. No S3, S4. Abdomen: Soft. Neurological: Grossly normal. Extremities: Right foot has an ulcer on the big toe. Dorsalis pedis not felt good. LABORATORY REPORTS: WBC 8, hemoglobin 11, hematocrit 31. Chemistry: Electrolytes are normal. Creatinine 1. Blood sugar 146 and this morning, it was 80. C-reactive protein 6.5. X-ray of the chest: Borderline cardiomegaly without acute changes. X-ray of the foot: The x-ray to be evaluated. IMPRESSION: Right foot ulcer, diabetic. PLAN: I did consult and vascular surgery consult, Dr. Iverson. Shaye [id number]
[2018-09-27] MEDS: EZETIMIBE 10 MG TABLET (FP) PO SCH (09:50)
[2018-09-27] MEDS: amLODIPine BESYLATE 10 MG TABLET (FP) PO SCH (09:50)
[2018-09-27] MEDS: VITAMIN B COMPLEX W/C COMBO TABLET (FP) PO SCH (09:50)
[2018-09-27] MEDS: ASPIRIN 81 MG CHEWABLE TABLETS PO SCH (09:50)
--- NOTE | 2018-09-27 14:35 | CONSULT ---
<Eamon Vidales - Last Filed: 09/27/18 15:35> - Consultation REQUESTING PROVIDER: CONSULT REQUEST: We have been asked to surgically evaluate this patient for (R foot wound). 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 Pt reports wound initially began as blisters which she noticed on Monday 09/18. States she applied Baby Lotion to her feet and the next day noted a substantial worsening of the blisters. Pt was seen at [facility] on Monday of last week, reports she had an Xray, received a dose of IV abx and was sent home with PO abx (Doxycycline 100mg BID x 10 days). States she began taking the antibiotics that night and continued as directed up until coming to [facility] yesterday. Patient was seen at her Podiatrists office today and was sent to the ED for further evaluation. Denies fever/chills, n/v/d, cp/sob at home. Reports a history of similar blisters/wounds which have been treated with topical ointments (Santyl, Bacitracin) and HBO. Reports glucose is usually in 200s, unsure of last A1C. Has Diabetic shoes which she reports she wears. Denies tobacco use, current or prior. PMHx: as above PSHx: L toe, R foot (debridements) Home Medications Medication Instructions Recorded Amlodipine Besylate [Norvasc -] 10 mg PO DAILY #30 tablet 07/24/18 Aspirin [ASA -] 81 mg PO DAILY #30 tab.chew 07/24/18 Collagenase Clostridium Hist. 1 applic TP DAILY #1 tube 07/24/18 [Santyl -] Glipizide 5 mg PO AM 30 Days #30 tablet 07/24/18 Metformin HCl [Glucophage] 1,000 mg PO BID #60 tablet 07/24/18 Vitamin B Comp W-C [Total B with C 1 each PO DAILY #30 tablet 07/24/18 -] Doxycycline Monohydrate [Mondoxyne 100 mg PO BID 09/26/18 Nl] Insulin (Novolog 70/30) [Novolog 0 ml SQ ASDIR 09/26/18 Mix 70/30 Vial] Allergies Allergy/AdvReac Type Severity Reaction Status Date / Time No Known Allergies Allergy Verified 09/26/18 11:21 REVIEW OF SYSTEMS: CONSTITUTIONAL: Absent: fever, chills, diaphoresis CARDIOVASCULAR: Absent: chest pain, syncope RESPIRATORY: Absent: cough, shortness of breath GASTROINTESTINAL: Absent: abdominal pain PHYSICAL EXAM: GENERAL: Awake, alert, and fully oriented, in no acute distress. HEAD: Normal with no signs of trauma. LUNGS: No accessory muscle use. Unlabored on RA. ABDOMEN: Soft, nontender, not distended, normoactive bowel sounds, no guarding, no rebound. LOWER EXTREMITIES: L foot with approx 2.5x 1.5 blister under 4th and 5th toes overlying met heads (fluid appears serosanguinous), + charcot deformity at medial aspect of foot. R foot with large denuded blister plantar aspect of foot, proximally on big toe and extending to just below 1st met head (approx [id number]) and laterally to 3rd met head. Separate denuded blisters over 2nd and 3rd toes, plantar aspect extending medially to intertrignious space, Scant serous drainage, Underlying tissue with smal;l islands of fibrinous exudate over plantar aspect of foot, great toe with some tissue necrosis proximally. Large callus mid foot, with hyperpigmentation. +charcot foot deformity medial foot. Vasc: 2+ b/l dp, b/l pt not appreciated Vital Signs Temperature 98.3 F 09/27/18 13:44 Pulse Rate 90 09/27/18 13:44 Respiratory Rate 18 09/27/18 13:44 Blood Pressure 158/84 09/27/18 13:44 O2 Sat by Pulse Oximetry (%) 99 09/27/18 09:00 Lab Results WBC 8.1 K/mm3 (4.0-10.0) 09/26/18 12:47 RBC 3.77 M/mm3 (3.60-5.2) 09/26/18 12:47 Hgb 11.0 GM/dL (10.7-15.3) 09/26/18 12:47 Hct 31.0 % (32.4-45.2) L 09/26/18 12:47 MCV 82.4 fl (80-96) 09/26/18 12:47 MCHC 35.4 g/dl (32.0-36.0) 09/26/18 12:47 RDW 15.4 % (11.6-15.6) 09/26/18 12:47 Plt Count 250 K/MM3 (134-434) 09/26/18 12:47 Sodium 141 mmol/L (136-145) 09/26/18 12:47 Potassium 4.2 mmol/L (3.5-5.1) 09/26/18 12:47 Chloride 106 mmol/L (98-107) 09/26/18 12:47 Carbon Dioxide 28 mmol/L (21-32) 09/26/18 12:47 Anion Gap 7 MMOL/L (8-16) L 09/26/18 12:47 BUN 31 mg/dL (7-18) H 09/26/18 12:47 Creatinine 1.0 mg/dL (0.55-1.3) 09/26/18 12:47 Random Glucose 139 mg/dL (74-106) H 09/26/18 12:47 Calcium 9.1 mg/dL (8.5-10.1) 09/26/18 12:47 Blood Type B POSITIVE 09/26/18 20:30 Antibody Screen Negative 09/26/18 12:47 INR 0.99 (0.83-1.09) 09/26/18 12:47 Imaging: Foot xray (09/26/18): No acute fracture or dislocation identified. There is deformity of the medial malleolus suggestive of a chronic fracture. A large plantar spur is present, No gross soft tissue swelling or soft tissue air is identified. Vascular calcifications are present. 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 R foot with large denuded blister, no clinical signs of superficial infection Afebrile, no leukocytosis -Santyl to area of necrosis Proximal big toe, Bacitracin to remainder of wound, cover with 4x4/kerlix -Would benefit from offloading shoe while wounds are healing, should be heel weight bearing only with ambulation, consider PT (recommend cane for ambulation in interim) -Abx per primary team -Glucose control -HBO evaluation -Close f/u with Podiatry d/w attending Dr Iverson <Adrian Gomezdj - Last Filed: 09/27/18 20:35> - Consultation REQUESTING PROVIDER: CONSULT REQUEST: We have been asked to surgically evaluate this patient for ( specify). PCP:Carlos Vann HISTORY OF PRESENT ILLNESS: PMHx: PSHx: Home Medications Medication Instructions Recorded Amlodipine Besylate [Norvasc -] 10 mg PO DAILY #30 tablet 07/24/18 Aspirin [ASA -] 81 mg PO DAILY #30 tab.chew 07/24/18 Collagenase Clostridium Hist. 1 applic TP DAILY #1 tube 07/24/18 [Santyl -] Glipizide 5 mg PO AM 30 Days #30 tablet 07/24/18 Metformin HCl [Glucophage] 1,000 mg PO BID #60 tablet 07/24/18 Vitamin B Comp W-C [Total B with C 1 each PO DAILY #30 tablet 07/24/18 -] Doxycycline Monohydrate [Mondoxyne 100 mg PO BID 09/26/18 Nl] Insulin (Novolog 70/30) [Novolog 0 ml SQ ASDIR 09/26/18 Mix 70/30 Vial] Allergies Allergy/AdvReac Type Severity Reaction Status Date / Time No Known Allergies Allergy Verified 09/26/18 11:21 REVIEW OF SYSTEMS: CONSTITUTIONAL: Absent: fever, chills, diaphoresis, generalized weakness, malaise, loss of appetite, weight change CARDIOVASCULAR: Absent: chest pain, syncope, palpitations, irregular heart rate, lightheadedness , peripheral edema RESPIRATORY: Absent: cough, shortness of breath, dyspnea with exertion, wheezing, stridor, hemoptysis GASTROINTESTINAL: Absent: abdominal pain, abdominal distension, nausea, vomiting, diarrhea, constipation, melena, hematochezia GENITOURINARY: Absent: dysuria, frequency, urgency, hesitancy, hematuria, flank pain, genital pain MUSCULOSKELETAL: Absent: myalgia, arthralgia, joint swelling, back pain, neck pain SKIN: Absent: rash, itching, pallor HEMATOLOGIC/IMMUNOLOGIC: Absent: easy bleeding, easy bruising, lymphadenopathy NEUROLOGIC: Absent: headache, focal weakness, paresthesias, dizziness, unsteady gait, seizure, mental status changes, bladder or bowel incontinence PSYCHIATRIC: Absent: anxiety, depression, suicidal or homicidal ideation, hallucinations. PHYSICAL EXAM: GENERAL: Awake, alert, and fully oriented, in no acute distress. HEAD: Normal with no signs of trauma. EYES: PERRL, sclera anicteric, conjunctiva clear. NECK: Normal ROM, supple without lymphadenopathy, JVD, or masses. LUNGS: Clear to auscultation bilat anteriorly. No wheezes, and no crackles. No accessory muscle use. HEART: Regular rate and rhythm. No murmurs ABDOMEN: Soft, nontender, not distended, normoactive bowel sounds, no guarding, no rebound, no masses. No organomegaly. MUSCULOSKELETAL: Normal ROM at all joints. No bony deformities or tenderness. No CVA tenderness. UPPER EXTREMITIES: 2+ pulses, warm, well-perfused. No cyanosis. Cap refill <2 seconds. No peripheral edema. LOWER EXTREMITIES: 2+ pulses, warm, well-perfused. No calf tenderness. No peripheral edema. NEUROLOGICAL: Normal speech, gait not observed. PSYCH: Cooperative. Good eye contact. Appropriate mood and affect. SKIN: Warm, dry, normal turgor, no rashes or lesions noted. Vital Signs Temperature 98.6 F 09/27/18 17:23 Pulse Rate 83 09/27/18 17:23 Respiratory Rate 18 09/27/18 17:23 Blood Pressure 116/66 09/27/18 17:23 O2 Sat by Pulse Oximetry (%) 99 09/27/18 09:00 Lab Results WBC 8.1 K/mm3 (4.0-10.0) 09/26/18 12:47 RBC 3.77 M/mm3 (3.60-5.2) 09/26/18 12:47 Hgb 11.0 GM/dL (10.7-15.3) 09/26/18 12:47 Hct 31.0 % (32.4-45.2) L 09/26/18 12:47 MCV 82.4 fl (80-96) 09/26/18 12:47 MCHC 35.4 g/dl (32.0-36.0) 09/26/18 12:47 RDW 15.4 % (11.6-15.6) 09/26/18 12:47 Plt Count 250 K/MM3 (134-434) 09/26/18 12:47 Sodium 141 mmol/L (136-145) 09/26/18 12:47 Potassium 4.2 mmol/L (3.5-5.1) 09/26/18 12:47 Chloride 106 mmol/L (98-107) 09/26/18 12:47 Carbon Dioxide 28 mmol/L (21-32) 09/26/18 12:47 Anion Gap 7 MMOL/L (8-16) L 09/26/18 12:47 BUN 31 mg/dL (7-18) H 09/26/18 12:47 Creatinine 1.0 mg/dL (0.55-1.3) 09/26/18 12:47 Random Glucose 139 mg/dL (74-106) H 09/26/18 12:47 Calcium 9.1 mg/dL (8.5-10.1) 09/26/18 12:47 Blood Type B POSITIVE 09/26/18 20:30 Antibody Screen Negative 09/26/18 12:47 INR 0.99 (0.83-1.09) 09/26/18 12:47
--- NOTE | 2018-09-27 15:41 | EKG ---
Test Reason : Blood Pressure : / mmHG Vent. Rate : 082 BPM Atrial Rate : 082 BPM P-R Int : 176 ms QRS Dur : 082 ms QT Int : 374 ms P-R-T Axes : 045 017 055 degrees QTc Int : 436 ms NORMAL SINUS RHYTHM NORMAL ECG WHEN COMPARED WITH ECG OF 17-JUL-2018 11:14, NO SIGNIFICANT CHANGE WAS FOUND Confirmed by JAKE LONDONO MD ([id number]) on 09/27/2018 3:41:27 PM Referred By: Confirmed By:JAKE LONDONO MD
--- NOTE | 2018-09-27 15:49 | CON.ID ---
Consult Consult Specialty:: infectious diseases Referred by:: Reason for Consultation:: foot wound - History of Present Illness Chief Complaint: foot non healing wound History of Present Illness: 48-year-old female, with a past medical history of HTN, HLD, IDDM, hypothyroidism, admitted with a RT great toe and 2nd toe wounds. Patient states that the wounds initially began as bleeding blisters, which she noted on Monday 09/18. The patient went to [facility] on Monday, had an X-Ray, and was prescribed antibiotics. Patient was seen at her Podiatrists office today and was sent to the ED for further evaluation. patient admitted and seenby podiatry patients leg in dressing and she has shown me the pictures of the wound patient otherwise comfortable - History Source History Provided By: Patient Limitations to Obtaining History: No Limitations - Past Medical History ...LMP: 10/24/16 ...: No Endocrine: Yes: Diabetes Mellitus - Alcohol/Substance Use Hx Alcohol Use: Yes - Smoking History Smoking history: Never smoked Have you smoked in the past 12 months: No Aproximately how many cigarettes per day: 6 If you are a former smoker, when did you quit?: 2 years ago - Social History History of Recent Travel: No Home Medications - Allergies Allergies/Adverse Reactions: Allergies Allergy/AdvReac Type Severity Reaction Status Date / Time No Known Allergies Allergy Verified 09/26/18 11:21 - Home Medications Home Medications: Ambulatory Orders RX: Amlodipine Besylate [Norvasc -] 10 mg PO DAILY #30 tablet 07/24/18 RX: Aspirin [ASA -] 81 mg PO DAILY #30 tab.chew 07/24/18 RX: Collagenase Clostridium Hist. [Santyl -] 1 applic TP DAILY #1 tube 07/24/18 RX: Glipizide 5 mg PO AM 30 Days #30 tablet 07/24/18 RX: Metformin HCl [Glucophage] 1,000 mg PO BID #60 tablet 07/24/18 RX: Vitamin B Comp W-C [Total B with C -] 1 each PO DAILY #30 tablet 07/24/18 Doxycycline Monohydrate [Mondoxyne Nl] 100 mg PO BID 09/26/18 Insulin (Novolog 70/30) [Novolog Mix 70/30 Vial] 0 ml SQ ASDIR 09/26/18 Family Disease History - Family Disease History Family Disease History: Diabetes: Mother (COPD, Brast Cancer) Review of Systems - Review of Systems Constitutional: reports: No Symptoms Eyes: reports: No Symptoms HENT: reports: No Symptoms Neck: reports: No Symptoms Cardiovascular: reports: No Symptoms Respiratory: reports: No Symptoms Gastrointestinal: reports: No Symptoms Genitourinary: reports: No Symptoms Musculoskeletal: reports: Other Integumentary: reports: Erythema, Wound Neurological: reports: No Symptoms Endocrine: reports: No Symptoms Hematology/Lymphatic: reports: No Symptoms Psychiatric: reports: No Symptoms Physical Exam Vital Signs: Vital Signs Temperature 98.3 F 09/27/18 13:44 Pulse Rate 90 09/27/18 13:44 Respiratory Rate 18 09/27/18 13:44 Blood Pressure 158/84 09/27/18 13:44 O2 Sat by Pulse Oximetry (%) 99 09/27/18 09:00 Constitutional: Yes: Well Nourished, No Distress, Calm Eyes: Yes: Conjunctiva Clear HENT: Yes: Atraumatic, Normocephalic Neck: Yes: Supple, Trachea Midline Cardiovascular: Yes: Regular Rate and Rhythm Respiratory: Yes: Regular, CTA Bilaterally Gastrointestinal: Yes: Normal Bowel Sounds, Soft Musculoskeletal: Yes: WNL Extremities: Yes: Erythema (rt foot), Other (wound rt foot) Integumentary: Yes: Other Wound/Incision: Yes: Dressing Dry and Intact Neurological: Yes: Alert, Oriented Psychiatric: Yes: Alert, Oriented Labs: CBC, BMP 09/26/18 12:47 09/26/18 12:47 Imaging - Results Chest X-ray: Report Reviewed, Image Reviewed X-ray: Report Reviewed, Image Reviewed Assessment/Plan Problem List - Problems (1) Diabetic foot ulcer Code(s): E11.621 - TYPE 2 DIABETES MELLITUS WITH FOOT ULCER; L97.509 - NON- PRESSURE CHRONIC ULCER OTH PRT UNSP FOOT W UNSP SEVERITY Qualifiers: Diabetic foot ulcer location: midfoot Diabetes mellitus type: other specified (including JONNA) Laterality: right Non-pressure ulcer stage: unspecified non-pressure ulcer stage Qualified Code(s): E13.621 - Other specified diabetes mellitus with foot ulcer; L97.419 - Non-pressure chronic ulcer of right heel and midfoot with unspecified severity (2) Diabetes mellitus type 2 in obese Code(s): E11.9 - TYPE 2 DIABETES MELLITUS WITHOUT COMPLICATIONS; E66.9 - OBESITY , UNSPECIFIED (3) Essential (primary) hypertension Code(s): I10 - ESSENTIAL (PRIMARY) HYPERTENSION Assessment/Plan Rt foot infected wound Feet cellulitis DM Morbid Obesity plan will start patient on zosyn await for cx reports podiatry on case rest as per the team
[2018-09-27] MEDS ORDERED: DEXTROSE 5%-WATER - 50 ML IVPB ONE ×2 (16:27→20:58)
[2018-09-27] MEDS ORDERED: PIPERACILLIN/TAZOBACTAM 3.375 GM VIAL IVPB ONE ×2 (16:27→20:58)
[2018-09-27] MEDS: PIPERACILLIN/TAZOB 3.375 GM 3.375 GM in DEXTROSE 5%-WATER - 50 ML IVPB SCH (17:07)
[2018-09-28] MEDS: PIPERACILLIN/TAZOB 3.375 GM 3.375 GM in DEXTROSE 5%-WATER - 50 ML IVPB SCH ×3 (02:38→17:36)
[2018-09-28] MEDS: metFORMIN HCL 500 MG TABLET (FP) PO SCH ×2 (06:17→16:58)
[2018-09-28] MEDS: glipiZIDE 5 MG TABLET (FP) PO SCH (06:17)
[2018-09-28] MEDS: INSULIN (NOVOLOG MIX 70/30) 100 UNITS/ML MDV SQ SCH ×2 (06:19→16:59)
--- NOTE | 2018-09-28 08:54 | PN ---
Progress Note, Physician Chief Complaint: Feels better History of Present Illness: musa Albarran ID consult appreciated - Current Medication List Current Medications: Active Medications Amlodipine Besylate (Norvasc -) 10 mg PO DAILY [facility] Last Admin: 09/27/18 09:50 Dose: 10 mg Aspirin (Asa -) 81 mg PO DAILY [facility] Last Admin: 09/27/18 09:50 Dose: 81 mg Ezetimibe (Zetia -) 10 mg PO DAILY [facility] Last Admin: 09/27/18 09:50 Dose: 10 mg Glipizide (Glucotrol -) 5 mg PO DAILY@0700 [facility] Last Admin: 09/28/18 06:17 Dose: 5 mg Piperacillin Sod/Tazobactam (Sod 3.375 gm/ Dextrose) 50 mls @ 100 mls/hr IVPB Q8H-IV [facility]; Protocol Last Admin: 09/28/18 02:38 Dose: 100 mls/hr Insulin Aspart (Novolog Mix 70/30 Vial) 25 units SQ BIDAC [facility] Last Admin: 09/28/18 06:19 Dose: Not Given Metformin HCl (Glucophage -) 1,000 mg PO BIDAC [facility] Last Admin: 09/28/18 06:17 Dose: 1,000 mg Multivitamins (Total B With C -) 1 each PO DAILY [facility] Last Admin: 09/27/18 09:50 Dose: 1 each - Objective Vital Signs: Vital Signs Temperature 97.8 F 09/28/18 06:07 Pulse Rate 81 09/28/18 06:07 Respiratory Rate 18 09/28/18 06:07 Blood Pressure 120/65 09/28/18 06:07 O2 Sat by Pulse Oximetry (%) 100 09/27/18 21:00 Constitutional: Yes: No Distress Eyes: Yes: WNL HENT: Yes: WNL Neck: Yes: WNL Cardiovascular: Yes: WNL Respiratory: Yes: WNL Wound/Incision: Yes: Dressing Dry and Intact Neurological: Yes: Alert Labs: CBC, BMP 09/26/18 12:47 09/26/18 12:47 INR, PTT INR 0.99 (0.83-1.09) 09/26/18 12:47 Assessment/Plan Continue IV Zosyn
[2018-09-28] MEDS ORDERED: DEXTROSE 5%-WATER - 50 ML IVPB ONE ×2 (09:58→16:54)
[2018-09-28] MEDS ORDERED: PIPERACILLIN/TAZOBACTAM 3.375 GM VIAL IVPB ONE ×2 (09:58→16:54)
[2018-09-28] MEDS: VITAMIN B COMPLEX W/C COMBO TABLET (FP) PO SCH (10:01)
[2018-09-28] MEDS: EZETIMIBE 10 MG TABLET (FP) PO SCH (10:01)
[2018-09-28] MEDS: ASPIRIN 81 MG CHEWABLE TABLETS PO SCH (10:01)
[2018-09-28] MEDS: amLODIPine BESYLATE 10 MG TABLET (FP) PO SCH (10:01)
--- NOTE | 2018-09-28 11:30 | PN ---
Progress Note, Physician History of Present Illness: patient doing well no new issues - Current Medication List Current Medications: Active Medications Amlodipine Besylate (Norvasc -) 10 mg PO DAILY [facility] Last Admin: 09/28/18 10:01 Dose: 10 mg Aspirin (Asa -) 81 mg PO DAILY [facility] Last Admin: 09/28/18 10:01 Dose: 81 mg Ezetimibe (Zetia -) 10 mg PO DAILY [facility] Last Admin: 09/28/18 10:01 Dose: 10 mg Glipizide (Glucotrol -) 5 mg PO DAILY@0700 [facility] Last Admin: 09/28/18 06:17 Dose: 5 mg Piperacillin Sod/Tazobactam (Sod 3.375 gm/ Dextrose) 50 mls @ 100 mls/hr IVPB Q8H-IV [facility]; Protocol Last Admin: 09/28/18 10:00 Dose: 100 mls/hr Insulin Aspart (Novolog Mix 70/30 Vial) 25 units SQ BIDAC [facility] Last Admin: 09/28/18 06:19 Dose: Not Given Metformin HCl (Glucophage -) 1,000 mg PO BIDAC [facility] Last Admin: 09/28/18 06:17 Dose: 1,000 mg Multivitamins (Total B With C -) 1 each PO DAILY [facility] Last Admin: 09/28/18 10:01 Dose: 1 each - Objective Vital Signs: Vital Signs Temperature 97.8 F 09/28/18 06:07 Pulse Rate 81 09/28/18 06:07 Respiratory Rate 18 09/28/18 06:07 Blood Pressure 120/65 09/28/18 06:07 O2 Sat by Pulse Oximetry (%) 100 09/27/18 21:00 Constitutional: Yes: No Distress, Calm Cardiovascular: Yes: Regular Rate and Rhythm Respiratory: Yes: Regular, CTA Bilaterally Gastrointestinal: Yes: Normal Bowel Sounds, Soft Musculoskeletal: Yes: WNL Extremities: Yes: Other Wound/Incision: Yes: Dressing Dry and Intact Neurological: Yes: Alert, Oriented Psychiatric: Yes: Alert, Oriented Labs: CBC, BMP 09/26/18 12:47 09/26/18 12:47 INR, PTT INR 0.99 (0.83-1.09) 09/26/18 12:47 Assessment/Plan wound infection dm obesity plan continue abx wound care await for wound cx rest as per the team
--- NOTE | 2018-09-28 12:40 | PN ---
Progress Note (short form) - Note Progress Note: fuv b/l feet. Patient seen in bed eating. vss, Tmax 97.8 +improved cellulitis b/l feet, -mal odor, wound culture right foot pended, grade 1-2 wound right, +resolving blister left, wbc=8.1 cellulitis Betadine dressing change daily. Will follow.
[2018-09-28 14:30] VITALS: BMI 48.5
[2018-09-29] MEDS ORDERED: PIPERACILLIN/TAZOBACTAM 3.375 GM VIAL IVPB ONE ×3 (02:04→16:47)
[2018-09-29] MEDS ORDERED: DEXTROSE 5%-WATER - 50 ML IVPB ONE ×3 (02:05→16:47)
[2018-09-29] MEDS: PIPERACILLIN/TAZOB 3.375 GM 3.375 GM in DEXTROSE 5%-WATER - 50 ML IVPB SCH ×3 (03:16→17:03)
[2018-09-29] MEDS: INSULIN (NOVOLOG MIX 70/30) 100 UNITS/ML MDV SQ SCH ×2 (06:07→16:56)
[2018-09-29] MEDS: glipiZIDE 5 MG TABLET (FP) PO SCH (06:10)
[2018-09-29] MEDS: metFORMIN HCL 500 MG TABLET (FP) PO SCH ×2 (06:10→16:57)
--- NOTE | 2018-09-29 09:01 | PN ---
Progress Note, Physician Chief Complaint: Feels better History of Present Illness: Diabetic admitted with Rt foot ulcer On iv antibiotics - Current Medication List Current Medications: Active Medications Amlodipine Besylate (Norvasc -) 10 mg PO DAILY [facility] Last Admin: 09/28/18 10:01 Dose: 10 mg Aspirin (Asa -) 81 mg PO DAILY [facility] Last Admin: 09/28/18 10:01 Dose: 81 mg Ezetimibe (Zetia -) 10 mg PO DAILY [facility] Last Admin: 09/28/18 10:01 Dose: 10 mg Glipizide (Glucotrol -) 5 mg PO DAILY@0700 [facility] Last Admin: 09/29/18 06:10 Dose: 5 mg Piperacillin Sod/Tazobactam (Sod 3.375 gm/ Dextrose) 50 mls @ 100 mls/hr IVPB Q8H-IV [facility]; Protocol Last Admin: 09/29/18 03:16 Dose: 100 mls/hr Insulin Aspart (Novolog Mix 70/30 Vial) 25 units SQ BIDAC [facility] Last Admin: 09/29/18 06:07 Dose: Not Given Metformin HCl (Glucophage -) 1,000 mg PO BIDAC [facility] Last Admin: 09/29/18 06:10 Dose: 1,000 mg Multivitamins (Total B With C -) 1 each PO DAILY [facility] Last Admin: 09/28/18 10:01 Dose: 1 each - Objective Vital Signs: Vital Signs Temperature 98.0 F 09/28/18 21:00 Pulse Rate 89 09/28/18 21:00 Respiratory Rate 18 09/28/18 21:00 Blood Pressure 129/77 09/28/18 21:00 O2 Sat by Pulse Oximetry (%) 100 09/28/18 21:00 Constitutional: Yes: No Distress Eyes: Yes: WNL HENT: Yes: WNL Neck: Yes: WNL Cardiovascular: Yes: WNL Respiratory: Yes: WNL Gastrointestinal: Yes: WNL ...Rectal Exam: Yes: Deferred Musculoskeletal: Yes: WNL Wound/Incision: Yes: Clean/Dry Neurological: Yes: Alert ...Motor Strength: WNL Psychiatric: Yes: Alert Labs: CBC, BMP 09/26/18 12:47 09/26/18 12:47 INR, PTT INR 0.99 (0.83-1.09) 09/26/18 12:47 Assessment/Plan Wound dressing done
[2018-09-29] MEDS: VITAMIN B COMPLEX W/C COMBO TABLET (FP) PO SCH (10:44)
[2018-09-29] MEDS: amLODIPine BESYLATE 10 MG TABLET (FP) PO SCH (10:44)
[2018-09-29] MEDS: EZETIMIBE 10 MG TABLET (FP) PO SCH (10:45)
[2018-09-29] MEDS: ASPIRIN 81 MG CHEWABLE TABLETS PO SCH (10:45)
--- NOTE | 2018-09-29 16:26 | PN ---
Progress Note, Physician History of Present Illness: Pt seen and examined. Events noted, labs/xray results reviewed. Currently patient states she has some foot pain R>L but has no other specific complaints. - Current Medication List Current Medications: Active Medications Amlodipine Besylate (Norvasc -) 10 mg PO DAILY [facility] Last Admin: 09/29/18 10:44 Dose: 10 mg Aspirin (Asa -) 81 mg PO DAILY [facility] Last Admin: 09/29/18 10:45 Dose: 81 mg Ezetimibe (Zetia -) 10 mg PO DAILY [facility] Last Admin: 09/29/18 10:45 Dose: 10 mg Glipizide (Glucotrol -) 5 mg PO DAILY@0700 [facility] Last Admin: 09/29/18 06:10 Dose: 5 mg Piperacillin Sod/Tazobactam (Sod 3.375 gm/ Dextrose) 50 mls @ 100 mls/hr IVPB Q8H-IV [facility]; Protocol Last Admin: 09/29/18 10:45 Dose: 100 mls/hr Insulin Aspart (Novolog Mix 70/30 Vial) 25 units SQ BIDAC [facility] Last Admin: 09/29/18 06:07 Dose: Not Given Metformin HCl (Glucophage -) 1,000 mg PO BIDAC [facility] Last Admin: 09/29/18 06:10 Dose: 1,000 mg Multivitamins (Total B With C -) 1 each PO DAILY [facility] Last Admin: 09/29/18 10:44 Dose: 1 each - Objective Vital Signs: Vital Signs Temperature 98.5 F 09/29/18 13:39 Pulse Rate 85 09/29/18 13:39 Respiratory Rate 18 09/29/18 13:39 Blood Pressure 146/70 09/29/18 13:39 O2 Sat by Pulse Oximetry (%) 100 09/29/18 09:00 Constitutional: Yes: No Distress, Calm Cardiovascular: Yes: Regular Rate and Rhythm Respiratory: Yes: Regular Gastrointestinal: Yes: Normal Bowel Sounds, Soft, Abdomen, Obese Wound/Incision: Yes: Other (Rt foot plantar wound without purulence, +tenderness , +edema b/l) Neurological: Yes: Alert Labs: CBC, BMP 09/26/18 12:47 09/26/18 12:47 INR, PTT INR 0.99 (0.83-1.09) 09/26/18 12:47 Microbiology 09/26/18 12:42 Blood - Peripheral Venous Blood Culture - Preliminary NO GROWTH OBTAINED AFTER 72 HOURS, INCUBATION TO CONTINUE FOR 2 DAYS. 09/26/18 12:47 Blood - Peripheral Venous Blood Culture - Preliminary NO GROWTH OBTAINED AFTER 72 HOURS, INCUBATION TO CONTINUE FOR 2 DAYS. 09/27/18 23:37 Foot - Right Plantar Gram Stain - Final 09/27/18 23:37 Foot - Right Plantar Wound Culture - Preliminary Proteus Species Group D Strep Or Entero Coccus Staphylococcus Latex Coag Pos Presumptive Ps Aeruginosa Problem List - Problems (1) Diabetic foot ulcer Code(s): E11.621 - TYPE 2 DIABETES MELLITUS WITH FOOT ULCER; L97.509 - NON- PRESSURE CHRONIC ULCER OTH PRT UNSP FOOT W UNSP SEVERITY Qualifiers: Diabetic foot ulcer location: midfoot Diabetes mellitus type: other specified (including JONNA) Laterality: right Non-pressure ulcer stage: unspecified non-pressure ulcer stage Qualified Code(s): E13.621 - Other specified diabetes mellitus with foot ulcer; L97.419 - Non-pressure chronic ulcer of right heel and midfoot with unspecified severity (2) Diabetes mellitus type 2 in obese Code(s): E11.9 - TYPE 2 DIABETES MELLITUS WITHOUT COMPLICATIONS; E66.9 - OBESITY , UNSPECIFIED (3) Essential (primary) hypertension Code(s): I10 - ESSENTIAL (PRIMARY) HYPERTENSION Assessment/Plan Rt foot infected wound Feet cellulitis DM Morbid Obesity -- wound cultures: staph aureus/strep/pseudomonas/proteus -- continue antibiotics -- monitor esr/crp trend -- needs tight glycemic control -- continue wound care Podiatry following
[2018-09-29] MEDS ORDERED: INSULIN (NOVOLOG MIX 70/30) 100 UNITS/ML MDV SQ ONE (17:13)
[2018-09-30] MEDS ORDERED: DEXTROSE 5%-WATER - 50 ML IVPB ONE ×4 (02:21→23:16)
[2018-09-30] MEDS ORDERED: PIPERACILLIN/TAZOBACTAM 3.375 GM VIAL IVPB ONE ×4 (02:21→23:16)
[2018-09-30] MEDS: PIPERACILLIN/TAZOB 3.375 GM 3.375 GM in DEXTROSE 5%-WATER - 50 ML IVPB SCH ×3 (02:34→17:06)
[2018-09-30] MEDS: metFORMIN HCL 500 MG TABLET (FP) PO SCH ×2 (06:11→17:05)
[2018-09-30] MEDS: INSULIN (NOVOLOG MIX 70/30) 100 UNITS/ML MDV SQ SCH ×2 (06:11→17:06)
[2018-09-30] MEDS: glipiZIDE 5 MG TABLET (FP) PO SCH (06:11)
[2018-09-30] MEDS: ASPIRIN 81 MG CHEWABLE TABLETS PO SCH (09:37)
[2018-09-30] MEDS: VITAMIN B COMPLEX W/C COMBO TABLET (FP) PO SCH (09:37)
[2018-09-30] MEDS: EZETIMIBE 10 MG TABLET (FP) PO SCH (09:37)
[2018-09-30] MEDS: amLODIPine BESYLATE 10 MG TABLET (FP) PO SCH (09:37)
--- NOTE | 2018-09-30 12:14 | PN ---
Progress Note, Physician Chief Complaint: Feels good - Current Medication List Current Medications: Active Medications Amlodipine Besylate (Norvasc -) 10 mg PO DAILY [facility] Last Admin: 09/30/18 09:37 Dose: 10 mg Aspirin (Asa -) 81 mg PO DAILY [facility] Last Admin: 09/30/18 09:37 Dose: 81 mg Ezetimibe (Zetia -) 10 mg PO DAILY [facility] Last Admin: 09/30/18 09:37 Dose: 10 mg Glipizide (Glucotrol -) 5 mg PO DAILY@0700 [facility] Last Admin: 09/30/18 06:11 Dose: 5 mg Piperacillin Sod/Tazobactam (Sod 3.375 gm/ Dextrose) 50 mls @ 100 mls/hr IVPB Q8H-IV [facility]; Protocol Last Admin: 09/30/18 09:38 Dose: 100 mls/hr Insulin Aspart (Novolog Mix 70/30 Vial) 25 units SQ BIDAC [facility] Last Admin: 09/30/18 06:11 Dose: Not Given Metformin HCl (Glucophage -) 1,000 mg PO BIDAC [facility] Last Admin: 09/30/18 06:11 Dose: 1,000 mg Multivitamins (Total B With C -) 1 each PO DAILY [facility] Last Admin: 09/30/18 09:37 Dose: 1 each - Objective Vital Signs: Vital Signs Temperature 97.6 F 09/30/18 05:00 Pulse Rate 75 09/30/18 05:00 Respiratory Rate 16 09/30/18 05:00 Blood Pressure 145/69 09/30/18 05:00 O2 Sat by Pulse Oximetry (%) 100 09/29/18 21:00 Constitutional: Yes: No Distress Eyes: Yes: WNL HENT: Yes: WNL Neck: Yes: WNL Cardiovascular: Yes: WNL Respiratory: Yes: WNL Gastrointestinal: Yes: WNL ...Rectal Exam: Yes: Deferred Musculoskeletal: Yes: WNL Wound/Incision: Yes: Clean/Dry Neurological: Yes: Alert Labs: CBC, BMP 09/26/18 12:47 09/26/18 12:47 INR, PTT INR 0.99 (0.83-1.09) 09/26/18 12:47 Assessment/Plan Continue same trt
--- NOTE | 2018-09-30 14:45 | PN ---
Progress Note, Physician History of Present Illness: Pt states she feels well. Has some pain in RT foot but no other specific complaints. Tolerating antibiotics. - Current Medication List Current Medications: Active Medications Amlodipine Besylate (Norvasc -) 10 mg PO DAILY [facility] Last Admin: 09/30/18 09:37 Dose: 10 mg Aspirin (Asa -) 81 mg PO DAILY [facility] Last Admin: 09/30/18 09:37 Dose: 81 mg Ezetimibe (Zetia -) 10 mg PO DAILY [facility] Last Admin: 09/30/18 09:37 Dose: 10 mg Glipizide (Glucotrol -) 5 mg PO DAILY@0700 [facility] Last Admin: 09/30/18 06:11 Dose: 5 mg Piperacillin Sod/Tazobactam (Sod 3.375 gm/ Dextrose) 50 mls @ 100 mls/hr IVPB Q8H-IV [facility]; Protocol Last Admin: 09/30/18 09:38 Dose: 100 mls/hr Insulin Aspart (Novolog Mix 70/30 Vial) 25 units SQ BIDAC [facility] Last Admin: 09/30/18 06:11 Dose: Not Given Metformin HCl (Glucophage -) 1,000 mg PO BIDAC [facility] Last Admin: 09/30/18 06:11 Dose: 1,000 mg Multivitamins (Total B With C -) 1 each PO DAILY [facility] Last Admin: 09/30/18 09:37 Dose: 1 each - Objective Vital Signs: Vital Signs Temperature 98.0 F 09/30/18 14:10 Pulse Rate 84 09/30/18 14:10 Respiratory Rate 18 09/30/18 14:10 Blood Pressure 139/70 09/30/18 14:10 O2 Sat by Pulse Oximetry (%) 100 09/29/18 21:00 Constitutional: Yes: No Distress, Calm Cardiovascular: Yes: Regular Rate and Rhythm Respiratory: Yes: Regular Gastrointestinal: Yes: Normal Bowel Sounds, Soft, Abdomen, Obese Wound/Incision: Yes: Other (b/l foot edema/Rt foot erythema less Rt foot dressing intact) Neurological: Yes: Alert Labs: CBC, BMP 09/26/18 12:47 09/26/18 12:47 INR, PTT INR 0.99 (0.83-1.09) 09/26/18 12:47 Microbiology 09/26/18 12:42 Blood - Peripheral Venous Blood Culture - Preliminary NO GROWTH OBTAINED AFTER 96 HOURS, INCUBATION TO CONTINUE FOR 1 DAYS. 09/26/18 12:47 Blood - Peripheral Venous Blood Culture - Preliminary NO GROWTH OBTAINED AFTER 96 HOURS, INCUBATION TO CONTINUE FOR 1 DAYS. 09/27/18 23:37 Foot - Right Plantar Gram Stain - Final 09/27/18 23:37 Foot - Right Plantar Wound Culture - Preliminary Proteus Mirabilis Group D Strep Or Entero Coccus Presumptive Mssa (Pbp2a Neg) Presumptive Ps Aeruginosa Problem List - Problems (1) Diabetic foot ulcer Code(s): E11.621 - TYPE 2 DIABETES MELLITUS WITH FOOT ULCER; L97.509 - NON- PRESSURE CHRONIC ULCER OTH PRT UNSP FOOT W UNSP SEVERITY Qualifiers: Diabetic foot ulcer location: midfoot Diabetes mellitus type: other specified (including JONNA) Laterality: right Non-pressure ulcer stage: unspecified non-pressure ulcer stage Qualified Code(s): E13.621 - Other specified diabetes mellitus with foot ulcer; L97.419 - Non-pressure chronic ulcer of right heel and midfoot with unspecified severity (2) Diabetes mellitus type 2 in obese Code(s): E11.9 - TYPE 2 DIABETES MELLITUS WITHOUT COMPLICATIONS; E66.9 - OBESITY , UNSPECIFIED (3) Essential (primary) hypertension Code(s): I10 - ESSENTIAL (PRIMARY) HYPERTENSION Assessment/Plan Rt foot infected wound Feet cellulitis DM Morbid Obesity -- wound cultures: staph aureus/strep/pseudomonas/proteus -- continue Zosyn for now -- f/u esr/crp ordered for tomorrow -- continue wound care Podiatry following
[2018-09-30] MEDS ORDERED: INSULIN (NOVOLOG MIX 70/30) 100 UNITS/ML MDV SQ ONE (21:31)
[2018-10-01] MEDS: PIPERACILLIN/TAZOB 3.375 GM 3.375 GM in DEXTROSE 5%-WATER - 50 ML IVPB SCH ×3 (02:46→17:17)
[2018-10-01] MEDS: glipiZIDE 5 MG TABLET (FP) PO SCH ×2 (06:37→09:29)
[2018-10-01] MEDS: metFORMIN HCL 500 MG TABLET (FP) PO SCH ×3 (06:37→17:17)
[2018-10-01] MEDS: INSULIN (NOVOLOG MIX 70/30) 100 UNITS/ML MDV SQ SCH ×2 (06:38→17:17)
[2018-10-01] MEDS ORDERED: INSULIN (NOVOLOG MIX 70/30) 100 UNITS/ML MDV SQ ONE (06:47)
[2018-10-01] MEDS ORDERED: PT OWN MED DRAWER 7, Y5N ONE (06:47)
[2018-10-01] MEDS ORDERED: INSULIN (NOVOLOG) ASPART 100 UNITS/ML 10ML VIAL ONE (06:47)
--- NOTE | 2018-10-01 09:13 | PN ---
Progress Note, Physician Chief Complaint: Feels better - Current Medication List Current Medications: Active Medications Amlodipine Besylate (Norvasc -) 10 mg PO DAILY [facility] Last Admin: 09/30/18 09:37 Dose: 10 mg Aspirin (Asa -) 81 mg PO DAILY [facility] Last Admin: 09/30/18 09:37 Dose: 81 mg Ezetimibe (Zetia -) 10 mg PO DAILY [facility] Last Admin: 09/30/18 09:37 Dose: 10 mg Glipizide (Glucotrol -) 5 mg PO DAILY@0700 [facility] Last Admin: 10/01/18 06:37 Dose: Not Given Piperacillin Sod/Tazobactam (Sod 3.375 gm/ Dextrose) 50 mls @ 100 mls/hr IVPB Q8H-IV [facility]; Protocol Last Admin: 10/01/18 02:46 Dose: 100 mls/hr Insulin Aspart (Novolog Mix 70/30 Vial) 25 units SQ BIDAC [facility] Last Admin: 10/01/18 06:38 Dose: Not Given Metformin HCl (Glucophage -) 1,000 mg PO BIDAC [facility] Last Admin: 10/01/18 06:37 Dose: Not Given Multivitamins (Total B With C -) 1 each PO DAILY [facility] Last Admin: 09/30/18 09:37 Dose: 1 each - Objective Vital Signs: Vital Signs Temperature 98.2 F 10/01/18 06:00 Pulse Rate 81 10/01/18 06:00 Respiratory Rate 20 10/01/18 06:00 Blood Pressure 151/80 10/01/18 06:00 O2 Sat by Pulse Oximetry (%) 98 09/30/18 20:00 Constitutional: Yes: No Distress Eyes: Yes: WNL HENT: Yes: WNL Neck: Yes: WNL Cardiovascular: Yes: WNL Respiratory: Yes: WNL Gastrointestinal: Yes: Normal Bowel Sounds ...Rectal Exam: Yes: WNL Breast(s): Yes: WNL Musculoskeletal: Yes: WNL Labs: CBC, BMP 09/26/18 12:47 09/26/18 12:47 INR, PTT INR 0.99 (0.83-1.09) 09/26/18 12:47
[2018-10-01] MEDS ORDERED: PIPERACILLIN/TAZOBACTAM 3.375 GM VIAL IVPB ONE ×2 (09:16→17:14)
[2018-10-01] MEDS ORDERED: DEXTROSE 5%-WATER - 50 ML IVPB ONE ×2 (09:16→17:14)
[2018-10-01] MEDS: amLODIPine BESYLATE 10 MG TABLET (FP) PO SCH (09:29)
[2018-10-01] MEDS: VITAMIN B COMPLEX W/C COMBO TABLET (FP) PO SCH (09:29)
[2018-10-01] MEDS: EZETIMIBE 10 MG TABLET (FP) PO SCH (09:29)
[2018-10-01] MEDS: ASPIRIN 81 MG CHEWABLE TABLETS PO SCH (09:29)
--- NOTE | 2018-10-01 10:12 | PN ---
Progress Note, Physician History of Present Illness: stable no new issues - Current Medication List Current Medications: Active Medications Amlodipine Besylate (Norvasc -) 10 mg PO DAILY [facility] Last Admin: 10/01/18 09:29 Dose: 10 mg Aspirin (Asa -) 81 mg PO DAILY [facility] Last Admin: 10/01/18 09:29 Dose: 81 mg Ezetimibe (Zetia -) 10 mg PO DAILY [facility] Last Admin: 10/01/18 09:29 Dose: 10 mg Glipizide (Glucotrol -) 5 mg PO DAILY@0700 [facility] Last Admin: 10/01/18 09:29 Dose: 5 mg Piperacillin Sod/Tazobactam (Sod 3.375 gm/ Dextrose) 50 mls @ 100 mls/hr IVPB Q8H-IV [facility]; Protocol Last Admin: 10/01/18 09:29 Dose: 100 mls/hr Insulin Aspart (Novolog Mix 70/30 Vial) 25 units SQ BIDAC [facility] Last Admin: 10/01/18 06:38 Dose: Not Given Metformin HCl (Glucophage -) 1,000 mg PO BIDAC [facility] Last Admin: 10/01/18 09:29 Dose: 1,000 mg Multivitamins (Total B With C -) 1 each PO DAILY [facility] Last Admin: 10/01/18 09:29 Dose: 1 each - Objective Vital Signs: Vital Signs Temperature 98.2 F 10/01/18 06:00 Pulse Rate 81 10/01/18 06:00 Respiratory Rate 20 10/01/18 06:00 Blood Pressure 151/80 10/01/18 06:00 O2 Sat by Pulse Oximetry (%) 98 09/30/18 20:00 Constitutional: Yes: No Distress, Calm, Obese Cardiovascular: Yes: Regular Rate and Rhythm Respiratory: Yes: Regular, CTA Bilaterally Gastrointestinal: Yes: Normal Bowel Sounds, Soft Musculoskeletal: Yes: WNL Extremities: Yes: Erythema (improved), Other Wound/Incision: Yes: Dressing Dry and Intact Neurological: Yes: Alert, Oriented Psychiatric: Yes: Alert, Oriented Labs: CBC, BMP 09/26/18 12:47 09/26/18 12:47 INR, PTT INR 0.99 (0.83-1.09) 09/26/18 12:47 Assessment/Plan Problem List - Problems (1) Diabetic foot ulcer Code(s): E11.621 - TYPE 2 DIABETES MELLITUS WITH FOOT ULCER; L97.509 - NON- PRESSURE CHRONIC ULCER OTH PRT UNSP FOOT W UNSP SEVERITY Qualifiers: Diabetic foot ulcer location: midfoot Diabetes mellitus type: other specified (including JONNA) Laterality: right Non-pressure ulcer stage: unspecified non-pressure ulcer stage Qualified Code(s): E13.621 - Other specified diabetes mellitus with foot ulcer; L97.419 - Non-pressure chronic ulcer of right heel and midfoot with unspecified severity (2) Diabetes mellitus type 2 in obese Code(s): E11.9 - TYPE 2 DIABETES MELLITUS WITHOUT COMPLICATIONS; E66.9 - OBESITY , UNSPECIFIED (3) Essential (primary) hypertension Code(s): I10 - ESSENTIAL (PRIMARY) HYPERTENSION Assessment/Plan Rt foot infected wound Feet cellulitis DM Morbid Obesity plan continue abx await for podiatry to see the patient will discuss the case with the team rest as per the team
[2018-10-02] MEDS ORDERED: PIPERACILLIN/TAZOBACTAM 3.375 GM VIAL IVPB ONE ×2 (01:40→08:41)
[2018-10-02] MEDS ORDERED: DEXTROSE 5%-WATER - 50 ML IVPB ONE ×2 (01:41→08:41)
[2018-10-02] MEDS: PIPERACILLIN/TAZOB 3.375 GM 3.375 GM in DEXTROSE 5%-WATER - 50 ML IVPB SCH ×2 (01:51→09:14)
[2018-10-02] MEDS: glipiZIDE 5 MG TABLET (FP) PO SCH (06:08)
[2018-10-02] MEDS: metFORMIN HCL 500 MG TABLET (FP) PO SCH (06:08)
[2018-10-02] MEDS: INSULIN (NOVOLOG MIX 70/30) 100 UNITS/ML MDV SQ SCH (06:09)
[2018-10-02 08:05] VITALS: BP 137/74; PULSE 85; TEMP 98.3
--- NOTE | 2018-10-02 08:36 | DS ---
Physical Examination Vital Signs: Vital Signs Temperature 98.3 F 10/02/18 08:05 Pulse Rate 85 10/02/18 08:05 Respiratory Rate 20 10/02/18 08:05 Blood Pressure 137/74 10/02/18 08:05 O2 Sat by Pulse Oximetry (%) 99 10/01/18 21:00 Findings/Remarks: Admitted with Lt foot infection Treated with IV antibiotics,wound improved has a lot of necrotic areas Constitutional: Yes: No Distress Eyes: Yes: WNL HENT: Yes: WNL Neck: Yes: WNL Cardiovascular: Yes: WNL Respiratory: Yes: WNL Gastrointestinal: Yes: WNL ...Rectal Exam: Yes: Deferred Edema: No Wound/Incision: Yes: Clean/Dry Psychiatric: Yes: Alert Labs: CBC, BMP 09/26/18 12:47 09/26/18 12:47 Discharge Summary Reason For Visit: DIABETIC FOOT ULCER, CELLULITIS & ABSCESS OF TOE Current Active Problems Cellulitis and abscess of toe (Acute) Diabetic foot ulcer (Acute) Condition: Fair - Instructions Referrals: Carlos Vann MD [Primary Care Provider] - - Home Medications Comprehensive Discharge Medication List: Ambulatory Orders Amlodipine Besylate [Norvasc -] 10 mg PO DAILY #30 tablet 07/24/18 Aspirin [ASA -] 81 mg PO DAILY #30 tab.chew 07/24/18 Collagenase Clostridium Hist. [Santyl -] 1 applic TP DAILY #1 tube 07/24/18 Glipizide 5 mg PO AM 30 Days #30 tablet 07/24/18 Metformin HCl [Glucophage] 1,000 mg PO BID #60 tablet 07/24/18 Vitamin B Comp W-C [Total B with C -] 1 each PO DAILY #30 tablet 07/24/18 Doxycycline Monohydrate [Mondoxyne Nl] 100 mg PO BID 09/26/18 Insulin (Novolog 70/30) [Novolog Mix 70/30 Vial] 0 ml SQ ASDIR 09/26/18
[2018-10-02] MEDS: VITAMIN B COMPLEX W/C COMBO TABLET (FP) PO SCH (09:15)
[2018-10-02] MEDS: ASPIRIN 81 MG CHEWABLE TABLETS PO SCH (09:15)
[2018-10-02] MEDS: amLODIPine BESYLATE 10 MG TABLET (FP) PO SCH (09:16)
[2018-10-02] MEDS: EZETIMIBE 10 MG TABLET (FP) PO SCH (09:16)
--- NOTE | 2018-10-02 13:06 | PN ---
Progress Note, Physician - Objective Vital Signs: Vital Signs Temperature 98.3 F 10/02/18 08:05 Pulse Rate 85 10/02/18 08:05 Respiratory Rate 20 10/02/18 09:00 Blood Pressure 137/74 10/02/18 08:05 O2 Sat by Pulse Oximetry (%) 98 10/02/18 09:00 Labs: CBC, BMP 09/26/18 12:47 09/26/18 12:47 INR, PTT INR 0.99 (0.83-1.09) 09/26/18 12:47
[2018-10-02] MEDS ORDERED: AMOX TR/POT CLAV 875MG/125MG TABLETS (FP) PO SCH (17:30)
== END 2018-10-02 13:00 | disposition home or self-care (01) | DRG 638 ==
LOC: JER 11:06 → JERBED 16:14 → J7W 18:58
PROVIDERS: ADMIT Internal Medicine; ATTEND Internal Medicine
DX: E11.621 Type 2 diabetes mellitus with foot ulcer (principal); L97.518 Non-pressure chronic ulcer of other part of right foot with other specified severity; Z68.42 Body mass index [BMI] 45.0-49.9, adult; L03.116 Cellulitis of left lower limb; L03.115 Cellulitis of right lower limb; L02.611 Cutaneous abscess of right foot; L03.031 Cellulitis of right toe; E66.01 Morbid (severe) obesity due to excess calories; E03.9 Hypothyroidism, unspecified; I10 Essential (primary) hypertension; E78.5 Hyperlipidemia, unspecified; E11.40 Type 2 diabetes mellitus with diabetic neuropathy, unspecified; A49.01 Methicillin susceptible Staphylococcus aureus infection, unspecified site; B96.4 Proteus (mirabilis) (morganii) as the cause of diseases classified elsewhere; B96.5 Pseudomonas (aeruginosa) (mallei) (pseudomallei) as the cause of diseases classified elsewhere
CPT/HCPCS: 36415; 71045-TC-FY; 73630-TC-RT-FY; 80053; 81003; 81015; 82962; 83036; 84703; 85025; 85610; 85651; 86140; 86850; 86900; 86901; 87040; 87070; 87186; 87205; 93005; 93010; 99283-25

== ENCOUNTER 2020-06-08 12:43 | Inpatient (IN) | payer OTHER ==
[2020-06-08 14:12] LABS: BASO % 0.5 % (0-2.0); HEMATOCRIT 34.8 % (32.4-45.2); HEMOGLOBIN 12.1 GM/dL (10.7-15.3); LYMPH % 32.3 % (8-40); MCH 28.3 pg (25.7-33.7); MCHC 34.8 g/dl (32.0-36.0); MEAN CELL VOLUME 81.2 fl (80-96); MEAN PLT VOLUME 8.8 fl (7.5-11.1); MONO % 5.1 % (3.8-10.2); NEUT % 60.1 % (42.8-82.8); PLATELET COUNT 259 K/MM3 (134-434); RBC 4.29 M/mm3 (3.60-5.2); RDW 15.4 % (11.6-15.6); WHITE BLOOD COUNT 6.1 K/mm3 (4.0-10.0)
[2020-06-08 14:14] LABS: INR 0.97 (0.83-1.09); PROTHROMBIN TIME (PATIENT) 11.9 SEC (9.7-13.0)
[2020-06-08 14:32] LABS: POTASSIUM 4.4 mmol/L (3.5-5.1)
[2020-06-08 14:34] LABS: ALBUMIN 3.4 g/dl (3.4-5.0); CALCIUM 9.2 mg/dL (8.5-10.1)
[2020-06-08 14:35] LABS: BLOOD UREA NITROGEN 21.4 mg/dL (7-18)
[2020-06-08 14:39] LABS: BILIRUBIN,TOTAL 0.3 mg/dL (0.2-1); TOT PROT 7.5 g/dl (6.4-8.2)
[2020-06-08] MEDS ORDERED: CEFAZOLIN 1 GM/D5W 1 GM/50 ML BAG IVPB ONE (15:40)
[2020-06-08] MEDS ORDERED: SODIUM CHLORIDE 1,000 ML IV STA (15:48)
[2020-06-08] MEDS ORDERED: CEFAZOLIN 1 GM/D5W 1 GM/50 ML BAG ONE (16:17)
[2020-06-09] MEDS ORDERED: PT OWN MED DRAWER 7, Y5N ONE (00:28)
[2020-06-09] MEDS: glipiZIDE 5 MG TABLET (FP) PO SCH ×2 (06:01→09:40)
[2020-06-09 07:57] LABS: BASO % 0.6 % (0-2.0); EOS % 3.5 % (0-4.5); HEMATOCRIT 33.9 % (32.4-45.2); HEMOGLOBIN 11.6 GM/dL (10.7-15.3); LYMPH % 44.7 % (8-40); MCH 27.6 pg (25.7-33.7); MCHC 34.2 g/dl (32.0-36.0); MEAN CELL VOLUME 80.7 fl (80-96); MEAN PLT VOLUME 8.4 fl (7.5-11.1); MONO % 6.4 % (3.8-10.2); NEUT % 44.8 % (42.8-82.8); PLATELET COUNT 257 K/MM3 (134-434); RDW 15.5 % (11.6-15.6); WHITE BLOOD COUNT 6.7 K/mm3 (4.0-10.0)
[2020-06-09 08:18] LABS: POTASSIUM 4.8 mmol/L (3.5-5.1)
[2020-06-09 08:30] LABS: ALBUMIN 3.2 g/dl (3.4-5.0); BLOOD UREA NITROGEN 20.7 mg/dL (7-18); CALCIUM 8.9 mg/dL (8.5-10.1)
[2020-06-09 08:33] LABS: CREATININE 0.9 mg/dL (0.55-1.3)
[2020-06-09 08:34] LABS: BILIRUBIN,TOTAL 0.4 mg/dL (0.2-1)
[2020-06-09 08:35] LABS: TOT PROT 7.1 g/dl (6.4-8.2)
[2020-06-09] MEDS: amLODIPine BESYLATE 10 MG TABLET (FP) PO SCH (09:40)
[2020-06-09] MEDS ORDERED: CEFAZOLIN 1 GM/D5W 1 GM/50 ML BAG IVPB SCH (10:00)
[2020-06-09] MEDS ORDERED: ASPIRIN 81 MG CHEWABLE TABLETS PO SCH (10:00)
[2020-06-09] MEDS ORDERED: PIPERACILLIN/TAZOB 3.375 GM 3.375 GM in DEXTROSE 5%-WATER - 50 ML IVPB SCH (12:15)
[2020-06-09] MEDS ORDERED: FLU VACCINE (FLULAVAL) PF 60 MCG/0.5 ML SYRINGE 2020-2021 IM ONE (14:00)
[2020-06-09] MEDS ORDERED: DEXTROSE 5%-WATER - 50 ML IVPB ONE (17:12)
[2020-06-09] MEDS ORDERED: PIPERACILLIN/TAZOBACTAM 3.375 GM VIAL IVPB ONE (17:12)
[2020-06-09] MEDS: PIPERACILLIN/TAZOB 3.375 GM 3.375 GM in DEXTROSE 5%-WATER - 50 ML IVPB SCH (17:48)
[2020-06-10] MEDS ORDERED: PIPERACILLIN/TAZOBACTAM 3.375 GM VIAL IVPB ONE ×3 (00:39→17:44)
[2020-06-10] MEDS ORDERED: DEXTROSE 5%-WATER - 50 ML IVPB ONE ×3 (00:40→17:44)
[2020-06-10] MEDS: PIPERACILLIN/TAZOB 3.375 GM 3.375 GM in DEXTROSE 5%-WATER - 50 ML IVPB SCH ×4 (01:23→18:12)
[2020-06-10] MEDS: glipiZIDE 5 MG TABLET (FP) PO SCH (06:24)
[2020-06-10] MEDS: amLODIPine BESYLATE 10 MG TABLET (FP) PO SCH ×2 (08:35→09:26)
[2020-06-10] MEDS ORDERED: PROPOFOL 20 ML ONE (09:06)
[2020-06-10] MEDS ORDERED: MIDAZOLAM HCL 2 MG/2 ML SINGLE DOSE VIAL ONE (09:07)
[2020-06-10] MEDS ORDERED: LIDOCAINE HCL 1%, 10 MG/ML (20ML VIAL) ONE (09:16)
[2020-06-10] MEDS ORDERED: DEXAMETHASONE SOD PHOSPHATE 4 MG/1 ML VIAL ONE (09:16)
[2020-06-10] MEDS ORDERED: LIDOCAINE HCL 1%, 10 MG/ML (20ML VIAL) PNB ONE (11:02)
[2020-06-10] MEDS ORDERED: ONDANSETRON 4 MG/2 ML VIAL IVPUSH PRN (13:09)
[2020-06-10] MEDS ORDERED: oxyCODONE HCL 5 MG TABLET PO PRN (13:09)
[2020-06-10] MEDS ORDERED: LACTATED RINGERS SOLUTION 1,000 ML IV SCH (13:15)
[2020-06-10] MEDS: oxyCODONE HCL 5 MG TABLET PO PRN (15:15)
[2020-06-11] MEDS ORDERED: PIPERACILLIN/TAZOBACTAM 3.375 GM VIAL IVPB ONE ×3 (01:09→17:17)
[2020-06-11] MEDS ORDERED: DEXTROSE 5%-WATER - 50 ML IVPB ONE ×2 (01:09→17:17)
[2020-06-11] MEDS: oxyCODONE HCL 5 MG TABLET PO PRN ×2 (01:13→08:24)
[2020-06-11] MEDS: PIPERACILLIN/TAZOB 3.375 GM 3.375 GM in DEXTROSE 5%-WATER - 50 ML IVPB SCH ×3 (01:14→17:37)
[2020-06-11] MEDS: glipiZIDE 5 MG TABLET (FP) PO SCH (06:26)
[2020-06-11] MEDS: amLODIPine BESYLATE 10 MG TABLET (FP) PO SCH (10:03)
[2020-06-11 11:48] VITALS: BMI 49.6
[2020-06-11] MEDS: metFORMIN HCL 500 MG TABLET (FP) PO SCH (16:43)
[2020-06-12] MEDS ORDERED: PIPERACILLIN/TAZOBACTAM 3.375 GM VIAL IVPB ONE ×3 (01:41→17:03)
[2020-06-12] MEDS ORDERED: DEXTROSE 5%-WATER - 50 ML IVPB ONE ×3 (01:41→17:03)
[2020-06-12] MEDS: PIPERACILLIN/TAZOB 3.375 GM 3.375 GM in DEXTROSE 5%-WATER - 50 ML IVPB SCH ×3 (02:07→18:13)
[2020-06-12] MEDS: metFORMIN HCL 500 MG TABLET (FP) PO SCH ×2 (06:39→17:04)
[2020-06-12] MEDS: glipiZIDE 5 MG TABLET (FP) PO SCH (06:39)
[2020-06-12 08:36] LABS: BASO % 0.7 % (0-2.0); HEMATOCRIT 31.8 % (32.4-45.2); HEMOGLOBIN 11.1 GM/dL (10.7-15.3); LYMPH % 32.5 % (8-40); MCH 28.1 pg (25.7-33.7); MCHC 34.8 g/dl (32.0-36.0); MEAN CELL VOLUME 80.8 fl (80-96); MEAN PLT VOLUME 8.6 fl (7.5-11.1); MONO % 7.2 % (3.8-10.2); NEUT % 56.6 % (42.8-82.8); PLATELET COUNT 238 K/MM3 (134-434); RBC 3.94 M/mm3 (3.60-5.2); RDW 15.1 % (11.6-15.6)
[2020-06-12] MEDS: amLODIPine BESYLATE 10 MG TABLET (FP) PO SCH (10:55)
[2020-06-13] MEDS ORDERED: PIPERACILLIN/TAZOBACTAM 3.375 GM VIAL IVPB ONE ×3 (00:44→17:40)
[2020-06-13] MEDS ORDERED: DEXTROSE 5%-WATER - 50 ML IVPB ONE ×3 (00:45→17:40)
[2020-06-13] MEDS: PIPERACILLIN/TAZOB 3.375 GM 3.375 GM in DEXTROSE 5%-WATER - 50 ML IVPB SCH ×3 (01:30→17:44)
[2020-06-13] MEDS: glipiZIDE 5 MG TABLET (FP) PO SCH (06:09)
[2020-06-13] MEDS: metFORMIN HCL 500 MG TABLET (FP) PO SCH ×2 (06:09→17:43)
[2020-06-13] MEDS: amLODIPine BESYLATE 10 MG TABLET (FP) PO SCH (09:38)
[2020-06-14] MEDS ORDERED: PIPERACILLIN/TAZOBACTAM 3.375 GM VIAL IVPB ONE ×2 (01:01→09:51)
[2020-06-14] MEDS ORDERED: DEXTROSE 5%-WATER - 50 ML IVPB ONE ×2 (01:01→09:51)
[2020-06-14] MEDS: PIPERACILLIN/TAZOB 3.375 GM 3.375 GM in DEXTROSE 5%-WATER - 50 ML IVPB SCH ×2 (01:10→09:53)
[2020-06-14] MEDS: glipiZIDE 5 MG TABLET (FP) PO SCH (06:07)
[2020-06-14] MEDS: metFORMIN HCL 500 MG TABLET (FP) PO SCH (06:07)
[2020-06-14] MEDS: amLODIPine BESYLATE 10 MG TABLET (FP) PO SCH (09:53)
[2020-06-14] MEDS ORDERED: ASCORBIC ACID 500 MG TABLET (FP) PO SCH (10:00)
[2020-06-14] MEDS ORDERED: MULTIVITAMINS (DAILY MVI) TABLET (FP) PO SCH (10:00)
[2020-06-14] MEDS ORDERED: PT OWN MED DRAWER 7, Y5N ONE (14:43)
[2020-06-14 14:54] VITALS: BP 137/82; PULSE 96; TEMP 97.5
== END 2020-06-14 15:52 | disposition home or self-care (01) | DRG 617 ==
LOC: JER 12:43 → JERBED 16:11 → J6S 06-09 00:13
PROVIDERS: ADMIT Internal Medicine; ATTEND Internal Medicine
PROC: 0QBQ0ZX Excision of Right Toe Phalanx, Open Approach, Diagnostic (ICD-10-PCS; 2020-06-10)
PROC: 0Y6P0Z3 Detachment at Right 1st Toe, Low, Open Approach (ICD-10-PCS; principal; 2020-06-10 09:30)
DX: E11.621 Type 2 diabetes mellitus with foot ulcer (principal); E11.52 Type 2 diabetes mellitus with diabetic peripheral angiopathy with gangrene; M86.8X7 Other osteomyelitis, ankle and foot; L97.518 Non-pressure chronic ulcer of other part of right foot with other specified severity; I96 Gangrene, not elsewhere classified; Z68.42 Body mass index [BMI] 45.0-49.9, adult; L02.611 Cutaneous abscess of right foot; L03.115 Cellulitis of right lower limb; E11.69 Type 2 diabetes mellitus with other specified complication; I10 Essential (primary) hypertension; E03.9 Hypothyroidism, unspecified; Z79.899 Other long term (current) drug therapy; E66.01 Morbid (severe) obesity due to excess calories
CPT/HCPCS: 36415; 71045-TC-FY; 73630-TC-RT-FY; 80053; 82962; 83036; 83605; 85025; 85610; 85651; 85730; 86140; 86850; 86900; 86901; 87040; 88305-TC; 88311-TC; 93005; 93010; 94760; 99285-25; C9803; G0008; Q2036; U0003

== ENCOUNTER 2020-10-17 15:01 | Inpatient (IN) | payer OTHER ==
[2020-10-17 16:42] LABS: HEMATOCRIT 33.4 % (32.4-45.2); HEMOGLOBIN 11.7 GM/dL (10.7-15.3); MCH 27.9 pg (25.7-33.7); MCHC 34.9 g/dl (32.0-36.0); MEAN CELL VOLUME 79.8 fl (80-96); MEAN PLT VOLUME 8.9 fl (7.5-11.1); PLATELET COUNT 290 K/MM3 (134-434); RBC 4.18 M/mm3 (3.60-5.2); RDW 16.7 % (11.6-15.6); WHITE BLOOD COUNT 6.4 K/mm3 (4.0-10.0)
[2020-10-17 16:52] LABS: INR 0.99 (0.83-1.09)
[2020-10-17 16:54] LABS: ACTIVATED PTT 28.2 SECONDS (25.2-36.5)
[2020-10-17 17:00] LABS: POTASSIUM 4.4 mmol/L (3.5-5.1)
[2020-10-17 17:02] LABS: CALCIUM 9.4 mg/dL (8.5-10.1)
[2020-10-17 17:03] LABS: ALBUMIN 3.4 g/dl (3.4-5.0); BLOOD UREA NITROGEN 19.1 mg/dL (7-18)
[2020-10-17 17:06] LABS: CREATININE 1.1 mg/dL (0.55-1.3)
[2020-10-17 17:07] LABS: BILIRUBIN,TOTAL 0.3 mg/dL (0.2-1); TOT PROT 7.3 g/dl (6.4-8.2)
[2020-10-18 04:58] VITALS: BMI 50.0
[2020-10-18] MEDS ORDERED: metFORMIN HCL 500 MG TABLET (FP) ONE (06:39)
[2020-10-18] MEDS: AMPICILLIN NA/SULBACTAM NA 1.5 GM/100 ML PRE-DOCKED IVPB SCH ×3 (06:48→22:08)
[2020-10-18] MEDS: glipiZIDE 10 MG TABLET (FP) PO SCH (06:49)
[2020-10-18] MEDS: metFORMIN HCL 500 MG TABLET (FP) PO SCH ×2 (06:49→16:57)
[2020-10-18] MEDS: amLODIPine BESYLATE 10 MG TABLET (FP) PO SCH (10:45)
[2020-10-18] MEDS: LISINOPRIL 5 MG TABLET PO SCH (10:45)
[2020-10-18] MEDS ORDERED: PT OWN MED DRAWER 7, Y5N ONE ×2 (14:04→21:50)
[2020-10-18] MEDS: INSULIN (LEVEMIR) 100 UNITS/ML UNITS SQ SCH (21:54)
[2020-10-19] MEDS: AMPICILLIN NA/SULBACTAM NA 1.5 GM/100 ML PRE-DOCKED IVPB SCH (06:06)
[2020-10-19] MEDS ORDERED: glipiZIDE 5 MG TABLET (FP) ONE (06:16)
[2020-10-19] MEDS: glipiZIDE 10 MG TABLET (FP) PO SCH (06:56)
[2020-10-19] MEDS: metFORMIN HCL 500 MG TABLET (FP) PO SCH ×2 (06:56→17:09)
[2020-10-19] MEDS ORDERED: PT OWN MED DRAWER 7, Y5N ONE (09:12)
[2020-10-19] MEDS: LISINOPRIL 5 MG TABLET PO SCH (09:41)
[2020-10-19] MEDS: amLODIPine BESYLATE 10 MG TABLET (FP) PO SCH (09:41)
[2020-10-19] MEDS: COLLAGENASE CLOSTRIDIUM HIST. 30 GRAMS TUBE TP SCH (09:41)
[2020-10-19] MEDS ORDERED: PIPERACILLIN/TAZOBACTAM 3.375 GM VIAL IVPB ONE ×2 (15:02→17:07)
[2020-10-19] MEDS ORDERED: DEXTROSE 5%-WATER - 50 ML IVPB ONE ×2 (15:02→17:07)
[2020-10-19] MEDS: PIPERACILLIN/TAZOB 3.375 GM 3.375 GM in DEXTROSE 5%-WATER - 50 ML IVPB SCH ×2 (15:04→19:06)
[2020-10-19] MEDS: INSULIN (LEVEMIR) 100 UNITS/ML UNITS SQ SCH (22:00)
[2020-10-20] MEDS ORDERED: DEXTROSE 5%-WATER - 50 ML IVPB ONE ×3 (02:46→18:13)
[2020-10-20] MEDS ORDERED: PIPERACILLIN/TAZOBACTAM 3.375 GM VIAL IVPB ONE ×3 (02:46→18:13)
[2020-10-20] MEDS: PIPERACILLIN/TAZOB 3.375 GM 3.375 GM in DEXTROSE 5%-WATER - 50 ML IVPB SCH ×3 (02:53→18:34)
[2020-10-20] MEDS ORDERED: glipiZIDE 5 MG TABLET (FP) ONE (06:29)
[2020-10-20] MEDS: metFORMIN HCL 500 MG TABLET (FP) PO SCH ×2 (06:42→16:53)
[2020-10-20] MEDS: glipiZIDE 10 MG TABLET (FP) PO SCH (06:42)
[2020-10-20] MEDS: LISINOPRIL 5 MG TABLET PO SCH (10:26)
[2020-10-20] MEDS: amLODIPine BESYLATE 10 MG TABLET (FP) PO SCH (10:26)
[2020-10-20] MEDS: COLLAGENASE CLOSTRIDIUM HIST. 30 GRAMS TUBE TP SCH (11:35)
[2020-10-20] MEDS: INSULIN (LEVEMIR) 100 UNITS/ML UNITS SQ SCH ×2 (21:46→21:49)
[2020-10-21] MEDS ORDERED: DEXTROSE 5%-WATER - 50 ML IVPB ONE ×3 (01:34→16:58)
[2020-10-21] MEDS ORDERED: PIPERACILLIN/TAZOBACTAM 3.375 GM VIAL IVPB ONE ×3 (01:34→16:58)
[2020-10-21] MEDS: PIPERACILLIN/TAZOB 3.375 GM 3.375 GM in DEXTROSE 5%-WATER - 50 ML IVPB SCH ×3 (01:46→17:03)
[2020-10-21] MEDS ORDERED: glipiZIDE 5 MG TABLET (FP) ONE (05:36)
[2020-10-21] MEDS: metFORMIN HCL 500 MG TABLET (FP) PO SCH ×2 (06:15→17:03)
[2020-10-21] MEDS: glipiZIDE 10 MG TABLET (FP) PO SCH (06:15)
[2020-10-21] MEDS ORDERED: INSULIN (NOVOLOG) ASPART 100 UNITS/ML 10ML VIAL ONE (06:27)
[2020-10-21] MEDS ORDERED: INSULIN (LEVEMIR) 100 UNITS/ML UNITS SQ ONE (06:27)
[2020-10-21 09:09] LABS: POTASSIUM 4.5 mmol/L (3.5-5.1)
[2020-10-21 09:10] LABS: CALCIUM 8.9 mg/dL (8.5-10.1)
[2020-10-21 09:12] LABS: ALBUMIN 3.2 g/dl (3.4-5.0); BLOOD UREA NITROGEN 17.3 mg/dL (7-18)
[2020-10-21 09:16] LABS: BILIRUBIN,TOTAL 0.4 mg/dL (0.2-1); TOT PROT 7.1 g/dl (6.4-8.2)
[2020-10-21] MEDS: amLODIPine BESYLATE 10 MG TABLET (FP) PO SCH (09:16)
[2020-10-21] MEDS: LISINOPRIL 5 MG TABLET PO SCH (09:16)
[2020-10-21] MEDS: COLLAGENASE CLOSTRIDIUM HIST. 30 GRAMS TUBE TP SCH (10:00)
[2020-10-21] MEDS ORDERED: BUPIVACAINE HCL/PF 0.5% (5 MG/ML) 30 ML VIAL IJ ONE (13:37)
[2020-10-21] MEDS ORDERED: MIDAZOLAM HCL 2 MG/2 ML SINGLE DOSE VIAL ONE (13:39)
[2020-10-21] MEDS ORDERED: PROPOFOL 20 ML ONE (13:39)
[2020-10-21] MEDS ORDERED: BACITRACIN 50,000 UNITS VIAL NR ONE (14:00)
[2020-10-21] MEDS ORDERED: GLYCOPYRROLATE 0.2 MG/1 ML VIAL ONE (14:01)
[2020-10-21] MEDS ORDERED: ONDANSETRON 4 MG/2 ML VIAL IVPUSH PRN (14:56)
[2020-10-21] MEDS ORDERED: LACTATED RINGERS SOLUTION 1,000 ML IV SCH (15:00)
[2020-10-21] MEDS: INSULIN (LEVEMIR) 100 UNITS/ML UNITS SQ SCH (21:51)
[2020-10-22] MEDS ORDERED: DEXTROSE 5%-WATER - 50 ML IVPB ONE ×3 (01:17→17:58)
[2020-10-22] MEDS ORDERED: PIPERACILLIN/TAZOBACTAM 3.375 GM VIAL IVPB ONE ×3 (01:17→17:58)
[2020-10-22] MEDS ORDERED: ACETAMINOPHEN 325 MG TABLET (FP) PO PRN ×2 (01:45→16:20)
[2020-10-22] MEDS: PIPERACILLIN/TAZOB 3.375 GM 3.375 GM in DEXTROSE 5%-WATER - 50 ML IVPB SCH ×3 (02:29→18:15)
[2020-10-22] MEDS ORDERED: glipiZIDE 5 MG TABLET (FP) ONE (06:04)
[2020-10-22] MEDS: metFORMIN HCL 500 MG TABLET (FP) PO SCH ×2 (06:35→16:51)
[2020-10-22] MEDS: glipiZIDE 10 MG TABLET (FP) PO SCH (06:36)
[2020-10-22] MEDS ORDERED: INSULIN (LEVEMIR) 100 UNITS/ML UNITS SQ ONE (07:15)
[2020-10-22] MEDS ORDERED: INSULIN (NOVOLOG) ASPART 100 UNITS/ML 10ML VIAL ONE (07:15)
[2020-10-22] MEDS ORDERED: PT OWN MED DRAWER 7, Y5N ONE (07:16)
[2020-10-22 08:57] LABS: INR 1.03 (0.83-1.09); PROTHROMBIN TIME (PATIENT) 12.6 SEC (9.7-13.0)
[2020-10-22] MEDS: amLODIPine BESYLATE 10 MG TABLET (FP) PO SCH (09:31)
[2020-10-22] MEDS: LISINOPRIL 5 MG TABLET PO SCH (09:31)
[2020-10-22 19:53] LABS: BASO % 0.6 % (0-2.0); EOS % 2.9 % (0-4.5); HEMATOCRIT 30.4 % (32.4-45.2); HEMOGLOBIN 10.3 GM/dL (10.7-15.3); LYMPH % 41.1 % (8-40); MCH 27.5 pg (25.7-33.7); MCHC 33.8 g/dl (32.0-36.0); MEAN CELL VOLUME 81.5 fl (80-96); MEAN PLT VOLUME 8.6 fl (7.5-11.1); MONO % 7.7 % (3.8-10.2); NEUT % 47.7 % (42.8-82.8); PLATELET COUNT 263 K/MM3 (134-434); RBC 3.73 M/mm3 (3.60-5.2); WHITE BLOOD COUNT 5.9 K/mm3 (4.0-10.0)
[2020-10-22] MEDS: INSULIN (LEVEMIR) 100 UNITS/ML UNITS SQ SCH (21:41)
[2020-10-23] MEDS ORDERED: DEXTROSE 5%-WATER - 50 ML IVPB ONE ×2 (01:16→09:25)
[2020-10-23] MEDS ORDERED: PIPERACILLIN/TAZOBACTAM 3.375 GM VIAL IVPB ONE ×2 (01:16→09:25)
[2020-10-23] MEDS: PIPERACILLIN/TAZOB 3.375 GM 3.375 GM in DEXTROSE 5%-WATER - 50 ML IVPB SCH ×2 (01:50→09:33)
[2020-10-23] MEDS ORDERED: glipiZIDE 5 MG TABLET (FP) ONE (05:53)
[2020-10-23] MEDS: glipiZIDE 10 MG TABLET (FP) PO SCH (06:05)
[2020-10-23] MEDS: metFORMIN HCL 500 MG TABLET (FP) PO SCH ×2 (06:05→16:57)
[2020-10-23] MEDS: LISINOPRIL 5 MG TABLET PO SCH (09:33)
[2020-10-23] MEDS: amLODIPine BESYLATE 10 MG TABLET (FP) PO SCH (09:33)
[2020-10-23 14:21] VITALS: BP 155/91; PULSE 88; TEMP 98.5
[2020-10-23] MEDS ORDERED: AMOX TR/POT CLAV 875MG/125MG TABLETS (FP) PO SCH (17:30)
== END 2020-10-23 18:28 | disposition home or self-care (01) | DRG 256 ==
LOC: JER 15:01 → JERBED 16:00 → J6S 23:19
PROVIDERS: ADMIT Internal Medicine; ATTEND Internal Medicine
PROC: 0Y6S0Z0 Detachment at Left 2nd Toe, Complete, Open Approach (ICD-10-PCS; principal; 2020-10-21 13:00)
DX: E11.52 Type 2 diabetes mellitus with diabetic peripheral angiopathy with gangrene (principal); L97.528 Non-pressure chronic ulcer of other part of left foot with other specified severity; M86.8X7 Other osteomyelitis, ankle and foot; Z68.42 Body mass index [BMI] 45.0-49.9, adult; I96 Gangrene, not elsewhere classified; E11.69 Type 2 diabetes mellitus with other specified complication; E11.621 Type 2 diabetes mellitus with foot ulcer; I10 Essential (primary) hypertension; E78.5 Hyperlipidemia, unspecified; E03.9 Hypothyroidism, unspecified; E66.01 Morbid (severe) obesity due to excess calories
CPT/HCPCS: 36415; 73630-TC-LT; 73718-TC-LT; 80053; 82962; 83036; 84443; 85025; 85027; 85610; 85730; 86850; 86900; 86901; 87070; 87205; 88305-TC; 88311-TC; 94760; 97116-GP; 97162-GP; 99285-25; C9803; U0003

== ENCOUNTER 2021-02-12 10:42 | Inpatient (IN) | payer OTHER ==
[2021-02-12] MEDS ORDERED: VANCOMYCIN 1 GM in D5W (PRE-DOCKED) 1,000 MG/250 ML IVPB ONE ×2 (11:54→16:41)
[2021-02-12] MEDS ORDERED: PIPERACILLIN/TAZOB 4.5 GM 4.5 GM in DEXTROSE 5%-WATER 100 ML IVPB ONE (11:55)
[2021-02-12] MEDS ORDERED: PIPERACILLIN/TAZOB 4.5 GM 4.5 GM/100 ML BAG IVPB ONE (11:59)
[2021-02-12] MEDS ORDERED: VANCOMYCIN 1 GRAM (PRE-DOCKED) 1,000 MG/250 ML BAG IVPB ONE ×2 (11:59→18:34)
[2021-02-12 13:18] LABS: BASO % 0.6 % (0-2.0); EOS % 1.8 % (0-4.5); HEMATOCRIT 35.5 % (32.4-45.2); HEMOGLOBIN 11.8 GM/dL (10.7-15.3); LYMPH % 35.6 % (8-40); MCH 26.8 pg (25.7-33.7); MCHC 33.4 g/dl (32.0-36.0); MEAN CELL VOLUME 80.2 fl (80-96); MEAN PLT VOLUME 8.7 fl (7.5-11.1); MONO % 5.4 % (3.8-10.2); NEUT % 56.6 % (42.8-82.8); PLATELET COUNT 257 10^3/uL (134-434); RBC 4.42 M/mm3 (3.60-5.2); RDW 16.1 % (11.6-15.6); WHITE BLOOD COUNT 6.2 K/mm3 (4.0-10.0)
[2021-02-12 13:39] LABS: CALCIUM 8.8 mg/dL (8.5-10.1)
[2021-02-12 13:40] LABS: ALBUMIN 3.3 g/dl (3.4-5.0); BLOOD UREA NITROGEN 17.8 mg/dL (7-18)
[2021-02-12 13:43] LABS: CREATININE 0.8 mg/dL (0.55-1.3)
[2021-02-12 13:45] LABS: BILIRUBIN,TOTAL 0.4 mg/dL (0.2-1); TOT PROT 7.2 g/dl (6.4-8.2)
[2021-02-12] MEDS ORDERED: ACETAMINOPHEN 325 MG TABLET (FP) PO PRN (16:30)
[2021-02-12] MEDS: INSULIN SLIDING SCALE (NOVOLOG) 1 VIAL SQ SCH ×2 (18:53→21:02)
[2021-02-12] MEDS ORDERED: PIPERACILLIN/TAZOBACTAM 3.375 GM VIAL IVPB ONE (20:18)
[2021-02-12] MEDS ORDERED: DEXTROSE 5%-WATER - 50 ML IVPB ONE (20:19)
[2021-02-12 20:36] VITALS: BMI 48.2
[2021-02-12] MEDS: PIPERACILLIN/TAZOB 3.375 GM 3.375 GM in DEXTROSE 5%-WATER - 50 ML IVPB SCH (20:37)
[2021-02-12] MEDS ORDERED: INSULIN (NOVOLOG) ASPART 100 UNITS/ML 10ML VIAL ONE (20:44)
[2021-02-12] MEDS: ATORVASTATIN CA 40 MG TABLET (FP) PO SCH (21:02)
[2021-02-12] MEDS: ENOXAPARIN NA (PORCINE) 40 MG/0.4 ML DISP.SYRIN SQ SCH (21:02)
[2021-02-13] MEDS ORDERED: DEXTROSE 5%-WATER - 50 ML IVPB ONE ×3 (04:39→16:48)
[2021-02-13] MEDS ORDERED: PIPERACILLIN/TAZOBACTAM 3.375 GM VIAL IVPB ONE ×3 (04:39→16:47)
[2021-02-13] MEDS: PIPERACILLIN/TAZOB 3.375 GM 3.375 GM in DEXTROSE 5%-WATER - 50 ML IVPB SCH ×5 (04:49→19:17)
[2021-02-13] MEDS ORDERED: INSULIN (LEVEMIR) 100 UNITS/ML UNITS SQ ONE ×2 (04:54→19:42)
[2021-02-13] MEDS ORDERED: VANCOMYCIN PREMIX 1.5 GM 1,500 MG/300 ML BAG IVPB ONE (06:00)
[2021-02-13] MEDS: INSULIN SLIDING SCALE (NOVOLOG) 1 VIAL SQ SCH ×4 (06:03→22:14)
[2021-02-13] MEDS ORDERED: INSULIN (LEVEMIR) 100 UNITS/ML UNITS SQ SCH (07:00)
[2021-02-13 08:52] LABS: HEMATOCRIT 34.3 % (32.4-45.2); HEMOGLOBIN 11.6 GM/dL (10.7-15.3); MCH 27.1 pg (25.7-33.7); MCHC 33.8 g/dl (32.0-36.0); MEAN CELL VOLUME 80.2 fl (80-96); MEAN PLT VOLUME 8.4 fl (7.5-11.1); PLATELET COUNT 256 10^3/uL (134-434); RBC 4.28 M/mm3 (3.60-5.2); RDW 15.8 % (11.6-15.6); WHITE BLOOD COUNT 6.6 K/mm3 (4.0-10.0)
[2021-02-13 09:13] LABS: CALCIUM 8.6 mg/dL (8.5-10.1)
[2021-02-13 09:14] LABS: ALBUMIN 2.9 g/dl (3.4-5.0); BLOOD UREA NITROGEN 15.5 mg/dL (7-18)
[2021-02-13 09:17] LABS: CREATININE 0.9 mg/dL (0.55-1.3)
[2021-02-13 09:19] LABS: BILIRUBIN,TOTAL 0.6 mg/dL (0.2-1)
[2021-02-13 09:21] LABS: TOT PROT 6.7 g/dl (6.4-8.2)
[2021-02-13] MEDS: ENOXAPARIN NA (PORCINE) 40 MG/0.4 ML DISP.SYRIN SQ SCH (11:04)
[2021-02-13] MEDS: LISINOPRIL 10 MG TABLET PO SCH (11:04)
[2021-02-13] MEDS: amLODIPine BESYLATE 10 MG TABLET (FP) PO SCH (11:04)
[2021-02-13] MEDS: ASPIRIN 81 MG CHEWABLE TABLETS PO SCH (11:05)
[2021-02-13] MEDS: EZETIMIBE 10 MG TABLET (FP) PO SCH (11:05)
[2021-02-13] MEDS ORDERED: VANCOMYCIN PREMIX 1.5 GM 1,500 MG/300 ML BAG IVPB SCH (15:29)
[2021-02-13] MEDS: VANCOMYCIN HCL 1,500 MG in DEXTROSE 5%-WATER - 250 ML IVPB SCH (15:36)
[2021-02-13] MEDS ORDERED: PT OWN MED DRAWER 7, Y5N ONE (16:50)
[2021-02-13] MEDS: INSULIN (LEVEMIR) 100 UNITS/ML UNITS SQ SCH (17:08)
[2021-02-13] MEDS: COLLAGENASE CLOSTRIDIUM HIST. 30 GRAMS TUBE TP SCH (17:33)
[2021-02-13] MEDS ORDERED: INSULIN (NOVOLOG) ASPART 100 UNITS/ML 10ML VIAL ONE (21:40)
[2021-02-13] MEDS: ATORVASTATIN CA 40 MG TABLET (FP) PO SCH (22:09)
[2021-02-14] MEDS ORDERED: PIPERACILLIN/TAZOBACTAM 3.375 GM VIAL IVPB ONE ×3 (02:24→16:53)
[2021-02-14] MEDS ORDERED: DEXTROSE 5%-WATER - 50 ML IVPB ONE ×3 (02:24→16:53)
[2021-02-14] MEDS: PIPERACILLIN/TAZOB 3.375 GM 3.375 GM in DEXTROSE 5%-WATER - 50 ML IVPB SCH ×3 (02:27→17:04)
[2021-02-14] MEDS: VANCOMYCIN PREMIX 1.5 GM 1,500 MG/300 ML BAG IVPB SCH ×2 (06:06→17:04)
[2021-02-14] MEDS: INSULIN SLIDING SCALE (NOVOLOG) 1 VIAL SQ SCH ×4 (06:06→21:49)
[2021-02-14] MEDS: INSULIN (LEVEMIR) 100 UNITS/ML UNITS SQ SCH ×2 (06:06→17:03)
[2021-02-14 08:32] LABS: BASO % 0.8 % (0-2.0); EOS % 4.2 % (0-4.5); HEMATOCRIT 32.1 % (32.4-45.2); LYMPH % 37.6 % (8-40); MCH 27.1 pg (25.7-33.7); MCHC 34.2 g/dl (32.0-36.0); MEAN CELL VOLUME 79.2 fl (80-96); MEAN PLT VOLUME 8.5 fl (7.5-11.1); MONO % 6.4 % (3.8-10.2); PLATELET COUNT 253 10^3/uL (134-434); RBC 4.05 M/mm3 (3.60-5.2); RDW 15.6 % (11.6-15.6); WHITE BLOOD COUNT 6.4 K/mm3 (4.0-10.0)
[2021-02-14 08:54] LABS: BLOOD UREA NITROGEN 18.1 mg/dL (7-18); CALCIUM 8.2 mg/dL (8.5-10.1)
[2021-02-14 08:57] LABS: CREATININE 0.8 mg/dL (0.55-1.3)
[2021-02-14] MEDS: amLODIPine BESYLATE 10 MG TABLET (FP) PO SCH (09:33)
[2021-02-14] MEDS: ENOXAPARIN NA (PORCINE) 40 MG/0.4 ML DISP.SYRIN SQ SCH (09:33)
[2021-02-14] MEDS: LISINOPRIL 10 MG TABLET PO SCH (09:33)
[2021-02-14] MEDS: ASPIRIN 81 MG CHEWABLE TABLETS PO SCH (09:33)
[2021-02-14] MEDS: EZETIMIBE 10 MG TABLET (FP) PO SCH (09:33)
[2021-02-14] MEDS: COLLAGENASE CLOSTRIDIUM HIST. 30 GRAMS TUBE TP SCH (09:34)
[2021-02-14] MEDS ORDERED: INSULIN (NOVOLOG) ASPART 100 UNITS/ML 10ML VIAL ONE ×3 (11:49→21:24)
[2021-02-14] MEDS: ATORVASTATIN CA 40 MG TABLET (FP) PO SCH (21:42)
[2021-02-15] MEDS ORDERED: PIPERACILLIN/TAZOBACTAM 3.375 GM VIAL IVPB ONE ×3 (00:54→16:54)
[2021-02-15] MEDS ORDERED: DEXTROSE 5%-WATER - 50 ML IVPB ONE ×2 (00:54→16:54)
[2021-02-15] MEDS: PIPERACILLIN/TAZOB 3.375 GM 3.375 GM in DEXTROSE 5%-WATER - 50 ML IVPB SCH ×3 (01:08→17:01)
[2021-02-15] MEDS ORDERED: PT OWN MED DRAWER 7, Y5N ONE (05:48)
[2021-02-15] MEDS: VANCOMYCIN PREMIX 1.5 GM 1,500 MG/300 ML BAG IVPB SCH (06:13)
[2021-02-15] MEDS: INSULIN (LEVEMIR) 100 UNITS/ML UNITS SQ SCH ×2 (06:15→17:02)
[2021-02-15] MEDS: INSULIN SLIDING SCALE (NOVOLOG) 1 VIAL SQ SCH ×4 (06:15→21:48)
[2021-02-15] MEDS: ENOXAPARIN NA (PORCINE) 40 MG/0.4 ML DISP.SYRIN SQ SCH (09:51)
[2021-02-15] MEDS: ASPIRIN 81 MG CHEWABLE TABLETS PO SCH (09:51)
[2021-02-15] MEDS: LISINOPRIL 10 MG TABLET PO SCH (09:51)
[2021-02-15] MEDS: amLODIPine BESYLATE 10 MG TABLET (FP) PO SCH (09:51)
[2021-02-15] MEDS: EZETIMIBE 10 MG TABLET (FP) PO SCH (09:51)
[2021-02-15] MEDS: COLLAGENASE CLOSTRIDIUM HIST. 30 GRAMS TUBE TP SCH (09:52)
[2021-02-15] MEDS ORDERED: INSULIN (NOVOLOG) ASPART 100 UNITS/ML 10ML VIAL ONE ×2 (10:32→16:48)
[2021-02-15] MEDS ORDERED: INSULIN (LEVEMIR) 100 UNITS/ML UNITS SQ ONE (16:48)
[2021-02-15] MEDS: ATORVASTATIN CA 40 MG TABLET (FP) PO SCH (21:23)
[2021-02-16] MEDS ORDERED: DEXTROSE 5%-WATER - 50 ML IVPB ONE ×3 (00:10→17:58)
[2021-02-16] MEDS ORDERED: PIPERACILLIN/TAZOBACTAM 3.375 GM VIAL IVPB ONE ×3 (00:10→17:58)
[2021-02-16] MEDS: PIPERACILLIN/TAZOB 3.375 GM 3.375 GM in DEXTROSE 5%-WATER - 50 ML IVPB SCH ×3 (01:40→18:05)
[2021-02-16] MEDS: INSULIN SLIDING SCALE (NOVOLOG) 1 VIAL SQ SCH ×4 (06:05→21:07)
[2021-02-16] MEDS: INSULIN (LEVEMIR) 100 UNITS/ML UNITS SQ SCH ×2 (06:06→17:28)
[2021-02-16 07:26] LABS: BASO % 0.9 % (0-2.0); EOS % 3.5 % (0-4.5); HEMATOCRIT 31.5 % (32.4-45.2); HEMOGLOBIN 10.9 GM/dL (10.7-15.3); LYMPH % 38.5 % (8-40); MCH 27.4 pg (25.7-33.7); MCHC 34.5 g/dl (32.0-36.0); MEAN CELL VOLUME 79.3 fl (80-96); MONO % 7.5 % (3.8-10.2); NEUT % 49.6 % (42.8-82.8); PLATELET COUNT 243 10^3/uL (134-434); RBC 3.97 M/mm3 (3.60-5.2); WHITE BLOOD COUNT 4.9 K/mm3 (4.0-10.0)
[2021-02-16 07:59] LABS: BLOOD UREA NITROGEN 17.5 mg/dL (7-18); CALCIUM 8.6 mg/dL (8.5-10.1)
[2021-02-16 08:03] LABS: CREATININE 0.9 mg/dL (0.55-1.3)
[2021-02-16] MEDS: ASPIRIN 81 MG CHEWABLE TABLETS PO SCH (09:28)
[2021-02-16] MEDS: amLODIPine BESYLATE 10 MG TABLET (FP) PO SCH (09:28)
[2021-02-16] MEDS: ENOXAPARIN NA (PORCINE) 40 MG/0.4 ML DISP.SYRIN SQ SCH (09:28)
[2021-02-16] MEDS: COLLAGENASE CLOSTRIDIUM HIST. 30 GRAMS TUBE TP SCH (09:29)
[2021-02-16] MEDS: EZETIMIBE 10 MG TABLET (FP) PO SCH (09:29)
[2021-02-16] MEDS: LISINOPRIL 10 MG TABLET PO SCH (09:29)
[2021-02-16] MEDS ORDERED: INSULIN (NOVOLOG) ASPART 100 UNITS/ML 10ML VIAL ONE (11:30)
[2021-02-16] MEDS: ATORVASTATIN CA 40 MG TABLET (FP) PO SCH (21:07)
[2021-02-17] MEDS ORDERED: PIPERACILLIN/TAZOBACTAM 3.375 GM VIAL IVPB ONE ×2 (01:02→10:36)
[2021-02-17] MEDS ORDERED: DEXTROSE 5%-WATER - 50 ML IVPB ONE ×2 (01:02→10:36)
[2021-02-17] MEDS: PIPERACILLIN/TAZOB 3.375 GM 3.375 GM in DEXTROSE 5%-WATER - 50 ML IVPB SCH ×2 (02:14→10:40)
[2021-02-17] MEDS: INSULIN SLIDING SCALE (NOVOLOG) 1 VIAL SQ SCH ×3 (06:22→16:56)
[2021-02-17] MEDS: INSULIN (LEVEMIR) 100 UNITS/ML UNITS SQ SCH ×2 (06:22→16:56)
[2021-02-17] MEDS ORDERED: PT OWN MED DRAWER 7, Y5N ONE (10:01)
[2021-02-17] MEDS: ENOXAPARIN NA (PORCINE) 40 MG/0.4 ML DISP.SYRIN SQ SCH (10:40)
[2021-02-17] MEDS: LISINOPRIL 10 MG TABLET PO SCH (10:41)
[2021-02-17] MEDS: ASPIRIN 81 MG CHEWABLE TABLETS PO SCH (10:41)
[2021-02-17] MEDS: EZETIMIBE 10 MG TABLET (FP) PO SCH (10:41)
[2021-02-17] MEDS: amLODIPine BESYLATE 10 MG TABLET (FP) PO SCH (10:41)
[2021-02-17] MEDS: COLLAGENASE CLOSTRIDIUM HIST. 30 GRAMS TUBE TP SCH (10:52)
[2021-02-17] MEDS ORDERED: DALBAVANCIN HCL 1,500 MG in DEXTROSE 5%-WATER - 500 ML IVPB ONE (11:54)
[2021-02-17 14:01] VITALS: BP 130/60; PULSE 91; TEMP 98.2
== END 2021-02-17 18:06 | disposition home health service (06) | DRG 638 ==
LOC: JER 10:42 → JERBED 13:33 → J8W 19:56
PROVIDERS: ADMIT Student in an Organized Health Care Education/Training Program; ATTEND Internal Medicine
PROC: 02HV33Z Insertion of Infusion Device into Superior Vena Cava, Percutaneous Approach (ICD-10-PCS; principal; 2021-02-17)
PROC: B518ZZA Fluoroscopy of Superior Vena Cava, Guidance (ICD-10-PCS; 2021-02-17)
DX: E11.69 Type 2 diabetes mellitus with other specified complication (principal); L97.528 Non-pressure chronic ulcer of other part of left foot with other specified severity; Z68.42 Body mass index [BMI] 45.0-49.9, adult; M86.8X7 Other osteomyelitis, ankle and foot; E11.621 Type 2 diabetes mellitus with foot ulcer; I10 Essential (primary) hypertension; E03.9 Hypothyroidism, unspecified; E11.610 Type 2 diabetes mellitus with diabetic neuropathic arthropathy; E78.5 Hyperlipidemia, unspecified; E66.01 Morbid (severe) obesity due to excess calories; E11.21 Type 2 diabetes mellitus with diabetic nephropathy; Z89.422 Acquired absence of other left toe(s)
CPT/HCPCS: 36415; 36569; 71045-TC-FY; 77001-TC-FY; 80048; 80053; 82962; 85025; 85027; 85651; 86140; 87040; 93005; 93010; 97116-GP; 97161-GP; 99285-25; C1751; C9803; G0480; U0003; U0005

== ENCOUNTER 2021-02-18 12:43 | Day surgery (SDC) | payer OTHER ==
[2021-02-18 13:22] VITALS: PULSE 89; TEMP 99
[2021-02-18] MEDS ORDERED: DALBAVANCIN HCL 1,500 MG in DEXTROSE 5%-WATER - 500 ML IVPB ONE (14:00)
[2021-02-18 14:47] VITALS: BP 144/82
== END 2021-02-18 15:43 | disposition home or self-care (01) ==
LOC: JINFUSION 12:43 → J7W 12:44 → JINFUSION 15:43
PROVIDERS: ATTEND Internal Medicine Infectious Disease
DX: M86.9 Osteomyelitis, unspecified (principal); E11.621 Type 2 diabetes mellitus with foot ulcer; L97.509 Non-pressure chronic ulcer of other part of unspecified foot with unspecified severity; E66.01 Morbid (severe) obesity due to excess calories; Z68.42 Body mass index [BMI] 45.0-49.9, adult; E78.5 Hyperlipidemia, unspecified; L81.9 Disorder of pigmentation, unspecified; I10 Essential (primary) hypertension
CPT/HCPCS: 96365; J0875

== ENCOUNTER 2021-02-26 13:22 | Day surgery (SDC) | payer OTHER ==
[2021-02-26] MEDS ORDERED: DALBAVANCIN HCL 1,500 MG in DEXTROSE 5%-WATER - 500 ML IVPB ONE (14:30)
[2021-02-26 16:06] VITALS: BP 139/87; PULSE 86; TEMP 97.9
== END 2021-02-26 16:07 | disposition home or self-care (01) ==
LOC: JINFUSION 13:22 → J7W 13:23 → JINFUSION 16:07
PROVIDERS: ATTEND Internal Medicine Infectious Disease
DX: E11.621 Type 2 diabetes mellitus with foot ulcer (principal); M86.9 Osteomyelitis, unspecified; L97.509 Non-pressure chronic ulcer of other part of unspecified foot with unspecified severity
CPT/HCPCS: 96365; J0875

== ENCOUNTER 2021-11-04 11:38 | Emergency (ER) | payer OTHER ==
[2021-11-04 11:50] VITALS: BP 136/78; PULSE 86; TEMP 97.7; BMI 48.0
[2021-11-04] MEDS ORDERED: KETOROLAC TROMETHAMINE 30 MG/1 ML VIAL ONE (12:47)
[2021-11-04] MEDS ORDERED: KETOROLAC TROMETHAMINE 30 MG/1 ML VIAL IM ONE (12:48)
== END 2021-11-04 13:37 | disposition home or self-care (01) ==
LOC: JERFT 11:38
PROC: 3E0233Z Introduction of Anti-inflammatory into Muscle, Percutaneous Approach (ICD-10-PCS; principal; 2021-11-04)
DX: M25.512 Pain in left shoulder (principal)
CPT/HCPCS: 11042; 73030-TC-LT-FY; 96372; 99284-25; A6021

== ENCOUNTER 2022-04-07 10:26 | Emergency (ER) | payer OTHER ==
[2022-04-07 10:34] VITALS: RESP 20; TEMP 98.3; BMI 48.0
[2022-04-07] MEDS ORDERED: amLODIPine BESYLATE 10 MG TABLET (FP) PO ONE (11:09)
[2022-04-07] MEDS ORDERED: LISINOPRIL 10 MG TABLET PO ONE (11:09)
[2022-04-07] MEDS ORDERED: LISINOPRIL 10 MG TABLET ONE (11:42)
[2022-04-07] MEDS ORDERED: amLODIPine BESYLATE 10 MG TABLET (FP) ONE (11:42)
[2022-04-07 12:51] VITALS: BP 166/80; PULSE 78
== END 2022-04-07 13:33 | disposition home or self-care (01) ==
LOC: JER 10:26
DX: S09.90XA Unspecified injury of head, initial encounter (principal); W01.0XXA Fall on same level from slipping, tripping and stumbling without subsequent striking against object, initial encounter
CPT/HCPCS: 11721; 70450-TC; 97597; 99284-25; A6022

== ENCOUNTER 2023-12-11 12:40 | Emergency (ER) | payer OTHER ==
[2023-12-11 13:04] VITALS: BP 109/73; PULSE 93; RESP 18; BMI 42.9
[2023-12-11] MEDS ORDERED: FLUORESCEIN NA 1 EA STRIP ONE (14:42)
[2023-12-11] MEDS ORDERED: TETRACAINE 0.5% OPHTH SOLN 2 ML BOTTLE ONE (14:42)
[2023-12-11] MEDS: TETRACAINE 0.5% HCL 0.6ML DROPPER.BOTTLE OS ONE (14:49)
[2023-12-11] MEDS: FLUORESCEIN NA 1 EA STRIP OD ONE (14:49)
== END 2023-12-11 16:58 | disposition home or self-care (01) ==
LOC: JER 12:40
DX: H53.8 Other visual disturbances (principal); H33.051 Total retinal detachment, right eye; I95.9 Hypotension, unspecified; R11.0 Nausea; R63.0 Anorexia
CPT/HCPCS: 99283-25

== ENCOUNTER 2024-03-12 05:14 | Day surgery (SDC) | payer OTHER ==
[2024-03-11 10:13] VITALS: BMI 45.8
[2024-03-12] MEDS ORDERED: MIDAZOLAM HCL 2 MG/2 ML SINGLE DOSE VIAL ONE (10:35)
[2024-03-12 12:18] VITALS: BP 123/58; PULSE 87; RESP 17; TEMP 98.1
== END 2024-03-12 12:20 | disposition home or self-care (01) ==
LOC: JASU-ENDO 05:14
PROVIDERS: ATTEND Internal Medicine Gastroenterology
PROC: 0DJD8ZZ Inspection of Lower Intestinal Tract, Via Natural or Artificial Opening Endoscopic (ICD-10-PCS; principal; 2024-03-12 09:45)
DX: Z12.11 Encounter for screening for malignant neoplasm of colon (principal); K64.8 Other hemorrhoids; I10 Essential (primary) hypertension; E11.9 Type 2 diabetes mellitus without complications; Z79.4 Long term (current) use of insulin; Z79.84 Long term (current) use of oral hypoglycemic drugs; Z79.85 Long-term (current) use of injectable non-insulin antidiabetic drugs
CPT/HCPCS: 82962; 93005; 93010

== ENCOUNTER 2024-03-12 12:09 | Emergency (ER) | payer OTHER ==
[2024-03-12 12:29] VITALS: BP 129/88; PULSE 88; RESP 18; TEMP 98.1; BMI 45.8
[2024-03-12 12:53] LABS: BASO % 0.9 % (0-2.0); EOS % 1.6 % (0-4.5); HEMATOCRIT 36.6 % (32.4-45.2); HEMOGLOBIN 12.6 GM/dL (10.7-15.3); LYMPH % 38.4 % (8-40); MCH 28.7 pg (25.7-33.7); MCHC 34.5 g/dl (32.0-36.0); MEAN CELL VOLUME 83.2 fl (80-96); MEAN PLT VOLUME 7.9 fl (7.5-11.1); MONO % 6.2 % (3.8-10.2); NEUT % 52.9 % (42.8-82.8); PLATELET COUNT 254 10^3/uL (134-434); RDW 15.1 % (11.6-15.6); WHITE BLOOD COUNT 5.8 K/mm3 (4.0-10.0)
[2024-03-12 12:58] LABS: INR 1.01 (0.83-1.09); PROTHROMBIN TIME (PATIENT) 11.6 SEC (9.7-13.0)
[2024-03-12 13:00] LABS: ACTIVATED PTT 30.4 SECONDS (25.2-36.5)
[2024-03-12 13:09] LABS: POTASSIUM 3.2 mmol/L (3.5-5.1)
[2024-03-12 13:11] LABS: CALCIUM 8.3 mg/dL (8.5-10.1)
[2024-03-12 13:12] LABS: ALBUMIN 3.1 g/dl (3.4-5.0); MAGNESIUM 1.4 mg/dL (1.8-2.4)
[2024-03-12 13:15] LABS: PHOSPHOROUS 2.4 mg/dL (2.5-4.9)
[2024-03-12 13:16] LABS: TOT PROT 6.3 g/dl (6.4-8.2)
[2024-03-12 13:17] LABS: BILIRUBIN,TOTAL 0.5 mg/dL (0.2-1)
[2024-03-12 13:20] LABS: BLOOD UREA NITROGEN 7.9 mg/dL (7-18); N-TERMINAL BNP 163.7 pg/ml (5-125)
[2024-03-12] MEDS ORDERED: POTASSIUM CHLORIDE TABS 20 MEQ TABLET.ER (FP) PO ONE (13:21)
[2024-03-12] MEDS ORDERED: MAGNESIUM SULFATE IN WATER 2 GM/50 ML IVPB IVPB ONE (13:21)
[2024-03-12] MEDS: MAGNESIUM SULFATE IN WATER 2 GM/50 ML IVPB IVPB ONE (13:38)
[2024-03-12] MEDS: POTASSIUM CHLORIDE TABS 20 MEQ TABLET.ER (FP) PO ONE (13:38)
== END 2024-03-12 15:29 | disposition home or self-care (01) ==
LOC: JER 12:09
PROC: 3E033GC Introduction of Other Therapeutic Substance into Peripheral Vein, Percutaneous Approach (ICD-10-PCS; principal; 2024-03-12)
DX: R00.0 Tachycardia, unspecified (principal)
CPT/HCPCS: 36415; 80053; 83735; 83880; 84100; 84439; 84443; 84484; 85025; 85610; 85730; 86850; 86900; 86901; 99284-25

== ENCOUNTER 2025-05-22 13:03 | Inpatient (IN) | payer OTHER ==
[2025-05-22 14:16] LABS: ABSOLUTE IMMATURE GRANULOCYTES 0.01 x10^3/uL (0.0-0.031); BASOPHILS # 0.05 x10^3/uL (0.01-0.08); EOSINOPHIL % 1.9 % (0.7-5.8); EOSINOPHILS # 0.11 x10^3/uL (0.04-0.36); MCHC 34.5 g/dl (32.2-35.5); MEAN CELL VOLUME 83.5 fl (79.4-94.8); MEAN PLT VOLUME 10.7 fl (9.4-12.3); MONOCYTE # 0.37 x10^3/uL (0.24-0.86); MONOCYTE % 6.4 % (4.7-12.5); RDW 14.5 % (12.3-16.6)
[2025-05-22 14:23] LABS: INR 1.02 (0.83-1.09); PROTHROMBIN TIME (PATIENT) 11.1 SEC (9.7-13.0)
[2025-05-22 14:26] LABS: ACTIVATED PTT 31.0 SECONDS (25.2-36.5)
[2025-05-22 14:39] LABS: GLUCOSE,RANDOM 111.0 mg/dL (74-106); TOT PROT 7.9 g/dl (6.4-8.2)
[2025-05-22 14:40] LABS: CO2 24.0 mmol/L (21-32)
[2025-05-22 14:42] LABS: ALK PHOS 94.0 U/L (40-150)
[2025-05-22 14:44] LABS: SGPT/ALT 13.0 U/L (0-55)
[2025-05-22 14:45] LABS: CREATININE 1.14 mg/dL (0.55-1.3); SGOT/AST 36.0 U/L (5-34)
[2025-05-22 15:05] LABS: HCV DIAGNOSTIC IN-HOUSE W/RFLX NON-REACTIVE (NONREACTIVE)
[2025-05-22 15:06] LABS: HIV INTERPRETATION NEGATIVE (NEGATIVE)
[2025-05-22] MEDS ORDERED: ACETAMINOPHEN 325 MG TABLET (FP) PO PRN (16:14)
[2025-05-22 17:07] VITALS: BMI 38.4
[2025-05-22] MEDS: SODIUM ZIRCONIUM CYCLOSILICATE (LOKELMA) 5 GM PACKET PO SCH (20:09)
[2025-05-22] MEDS: INSULIN ASPART SLIDING SCALE (NOVOLOG) 1 VIAL SQ SCH (20:10)
[2025-05-22] MEDS: INSULIN GLARGINE (LANTUS) 100 UNITS/ML UNITS SQ SCH (20:11)
[2025-05-22] MEDS: FLU VACC TS2025-26(6MOS UP)/PF 45 MCG/0.5 ML SYRINGE IM ONE (20:22)
[2025-05-22] MEDS: ATORVASTATIN CA 40 MG TABLET (FP) PO SCH (21:34)
[2025-05-23] MEDS ORDERED: LIDOCAINE HCL 1%, 10 MG/ML (20ML VIAL) ONE (06:56)
[2025-05-23] MEDS ORDERED: BUPIVACAINE HCL/PF 0.5% (5MG/ML) 10 ML VIAL ONE (06:56)
[2025-05-23] MEDS ORDERED: MIDAZOLAM HCL 2 MG/2 ML SINGLE DOSE VIAL ONE (07:53)
[2025-05-23] MEDS ORDERED: PROPOFOL 20 ML ONE (07:54)
[2025-05-23 08:06] LABS: MCHC 34.6 g/dl (32.2-35.5); MEAN CELL VOLUME 82.3 fl (79.4-94.8); MEAN PLT VOLUME 10.5 fl (9.4-12.3); RDW 14.2 % (12.3-16.6)
[2025-05-23] MEDS ORDERED: ONDANSETRON 4 MG/2 ML VIAL IVPUSH PRN ×2 (08:25→08:30)
[2025-05-23] MEDS ORDERED: LACTATED RINGERS SOLUTION 1,000 ML IV SCH (08:30)
[2025-05-23 08:34] LABS: GLUCOSE,RANDOM 109.0 mg/dL (74-106)
[2025-05-23 08:35] LABS: TOT PROT 6.5 g/dl (6.4-8.2)
[2025-05-23 08:36] LABS: CO2 24.0 mmol/L (21-32)
[2025-05-23 08:37] LABS: ALK PHOS 91.0 U/L (40-150)
[2025-05-23 08:40] LABS: CREATININE 1.36 mg/dL (0.55-1.3); SGOT/AST 11.0 U/L (5-34); SGPT/ALT 9.0 U/L (0-55)
[2025-05-23] MEDS ORDERED: EZETIMIBE 10 MG TABLET (FP) PO SCH (10:00)
[2025-05-23] MEDS ORDERED: LOSARTAN 50MG/HCTZ 12.5MG 1 TAB PO SCH (10:00)
[2025-05-23] MEDS ORDERED: EMPAGLIFLOZIN (JARDIANCE) 25 MG TABLET PO SCH (10:00)
[2025-05-23] MEDS: EMPAGLIFLOZIN (JARDIANCE) 25 MG TABLET PO SCH (10:22)
[2025-05-23] MEDS: LOSARTAN 50MG/HCTZ 12.5MG 1 TAB PO SCH (10:22)
[2025-05-23] MEDS: EZETIMIBE 10 MG TABLET (FP) PO SCH (10:22)
[2025-05-23] MEDS: PANTOPRAZOLE 40 MG TABLET PO SCH (10:22)
[2025-05-23] MEDS: MAGNESIUM OXIDE 400 MG TABLET (FP) PO SCH (10:22)
[2025-05-23] MEDS: LACTATED RINGERS SOLUTION 1,000 ML IV SCH (10:41)
[2025-05-23] MEDS: SODIUM ZIRCONIUM CYCLOSILICATE (LOKELMA) 5 GM PACKET PO SCH (10:41)
[2025-05-23] MEDS: INSULIN ASPART SLIDING SCALE (NOVOLOG) 1 VIAL SQ SCH (11:51)
[2025-05-23] MEDS: CEFTRIAXONE 2 GM in DEXTROSE 5%-WATER 100 ML IVPB SCH (15:12)
[2025-05-23] MEDS: INSULIN GLARGINE (LANTUS) 100 UNITS/ML UNITS SQ SCH (21:33)
[2025-05-23] MEDS: ATORVASTATIN CA 40 MG TABLET (FP) PO SCH (21:33)
[2025-05-23] MEDS: ACETAMINOPHEN 325 MG TABLET (FP) PO PRN (21:33)
[2025-05-24 08:32] LABS: MCHC 34.6 g/dl (32.2-35.5); MEAN CELL VOLUME 82.8 fl (79.4-94.8); MEAN PLT VOLUME 10.3 fl (9.4-12.3); RDW 13.8 % (12.3-16.6)
[2025-05-24 08:56] LABS: GLUCOSE,RANDOM 85.0 mg/dL (74-106)
[2025-05-24 08:57] LABS: TOT PROT 6.2 g/dl (6.4-8.2)
[2025-05-24 08:58] LABS: CO2 25.0 mmol/L (21-32)
[2025-05-24 08:59] LABS: ALK PHOS 95.0 U/L (40-150)
[2025-05-24 09:02] LABS: CREATININE 1.24 mg/dL (0.55-1.3); SGOT/AST 15.0 U/L (5-34); SGPT/ALT 7.0 U/L (0-55)
[2025-05-24] MEDS: HEPARIN NA (PORCINE) 5,000 UNITS/ML 1ML VIAL SQ SCH (09:45)
[2025-05-25 22:48] LABS: URINE APPEARANCE CLEAR; URINE BILIRUBIN NEGATIVE (NEGATIVE); URINE COLOR YELLOW; URINE GLUCOSE (UA) 3+ (NEGATIVE); URINE KETONE NEGATIVE (NEGATIVE); URINE LEUK ESTERASE NEGATIVE (NEGATIVE); URINE NITRITE NEGATIVE (NEGATIVE); URINE PROTEIN NEGATIVE (NEGATIVE); URINE UROBILINOGEN 0.2 mg/dL (0.2-1.0)
[2025-05-26 08:19] LABS: MCHC 34.6 g/dl (32.2-35.5); MEAN CELL VOLUME 82.1 fl (79.4-94.8); MEAN PLT VOLUME 10.6 fl (9.4-12.3); RDW 14.0 % (12.3-16.6)
[2025-05-26 08:54] LABS: GLUCOSE,RANDOM 100.0 mg/dL (74-106); TOT PROT 6.4 g/dl (6.4-8.2)
[2025-05-26 08:55] LABS: CO2 26.0 mmol/L (21-32)
[2025-05-26 08:57] LABS: ALK PHOS 99.0 U/L (40-150)
[2025-05-26 08:59] LABS: SGOT/AST 14.0 U/L (5-34); SGPT/ALT 9.0 U/L (0-55)
[2025-05-26 09:00] LABS: CREATININE 1.15 mg/dL (0.55-1.3)
[2025-05-26] MEDS: COLLAGENASE CLOSTRIDIUM HIST. 30 GRAMS TUBE TP SCH (11:45)
[2025-05-26] MEDS ORDERED: EMPAGLIFLOZIN (JARDIANCE) 25 MG TABLET PO SCH (23:34)
[2025-05-27] MEDS ORDERED: INSULIN GLARGINE (LANTUS) 100 UNITS/ML UNITS SQ SCH (08:44)
[2025-05-27 22:22] VITALS: RESP 18
[2025-05-28 14:19] VITALS: BP 129/73; PULSE 87; TEMP 97.5
== END 2025-05-28 16:30 | disposition home or self-care (01) | DRG 629 ==
LOC: JER 13:03 → JERBED 14:54 → J5S 16:28
PROVIDERS: ADMIT Family Medicine; ATTEND Family Medicine
PROC: 0Q9 Lower Bones, Drainage (ICD-10-PCS; principal; 2025-05-23 08:12)
PROC: 05HY33Z Insertion of Infusion Device into Upper Vein, Percutaneous Approach (ICD-10-PCS; 2025-05-28)
DX: E11.69 Type 2 diabetes mellitus with other specified complication (principal); M86.8X7 Other osteomyelitis, ankle and foot; M86.9 Osteomyelitis, unspecified; E78.5 Hyperlipidemia, unspecified; E87.5 Hyperkalemia; I10 Essential (primary) hypertension; L97.519 Non-pressure chronic ulcer of other part of right foot with unspecified severity; E11.40 Type 2 diabetes mellitus with diabetic neuropathy, unspecified
CPT/HCPCS: 36415; 36569; 71045-TC-FY; 71046-TC-FY; 73630-TC-RT-FY; 80053; 81003; 82550; 82962; 83036; 83735; 85025; 85027; 85610; 85730; 86803; 86850; 86900; 86901; 87070; 87075; 87086; 87389; 90656; 93005; 93010; 93922; 93926-TC; 94760; 99285-25; A6260; G0463-25; J0878

== ENCOUNTER 2025-05-31 13:35 | Day surgery (SDC) | payer OTHER ==
[2025-05-31 16:17] VITALS: BP 128/74; PULSE 78; RESP 18; TEMP 97.8
== END 2025-05-31 16:18 | disposition home or self-care (01) ==
LOC: FINFUSION 13:35 → FM/S 13:37 → FINFUSION 16:18
PROVIDERS: ATTEND Internal Medicine Infectious Disease
DX: M86.171 Other acute osteomyelitis, right ankle and foot (principal); E13.69 Other specified diabetes mellitus with other specified complication; Z79.4 Long term (current) use of insulin
CPT/HCPCS: 96365; J0878

== ENCOUNTER 2025-06-02 11:07 | Day surgery (SDC) | payer OTHER ==
[2025-06-02] MEDS: DAPTOMYCIN IVPB ONE (11:40)
[2025-06-02 11:49] LABS: MCHC 34.7 g/dl (32.2-35.5); MEAN CELL VOLUME 82.9 fl (79.4-94.8); MEAN PLT VOLUME 10.2 fl (9.4-12.3); RDW 14.3 % (12.3-16.6)
[2025-06-02 12:25] LABS: ALK PHOS 123.0 U/L (45-117); CO2 29.0 mmol/L (21-32); CREATININE 1.6 mg/dl (0.6-1.3); GLUCOSE,RANDOM 94.0 mg/dl (74-106); SGOT/AST 16.0 U/L (15-37); SGPT/ALT 25.0 U/L (7-52); TOT PROT 7.2 g/dl (6.4-8.2)
[2025-06-02 12:48] VITALS: BP 130/73; PULSE 86; RESP 18; TEMP 98.6
== END 2025-06-02 12:25 | disposition home or self-care (01) ==
LOC: FINFUSION 11:07 → FM/S 11:11 → FINFUSION 12:25
PROVIDERS: ATTEND Internal Medicine Infectious Disease
DX: M86.8X7 Other osteomyelitis, ankle and foot (principal)
CPT/HCPCS: 36415; 80053; 82550; 85027; 96365; J0878

== ENCOUNTER 2025-06-03 14:37 | Day surgery (SDC) | payer OTHER ==
[2025-06-03] MEDS: DAPTOMYCIN IVPB ONE (14:57)
[2025-06-03 15:54] VITALS: BP 98/74; PULSE 94; RESP 18; TEMP 98.2
== END 2025-06-03 15:54 | disposition home or self-care (01) ==
LOC: FINFUSION 14:37 → FM/S 14:37 → FINFUSION 15:54
PROVIDERS: ATTEND Internal Medicine Infectious Disease
DX: M86.8X7 Other osteomyelitis, ankle and foot (principal)
CPT/HCPCS: 96365; J0878

== ENCOUNTER 2025-06-04 13:03 | Day surgery (SDC) | payer OTHER ==
[2025-06-04] MEDS: DAPTOMYCIN IVPB ONE (13:19)
[2025-06-04 14:18] VITALS: BP 105/60; PULSE 97; RESP 18; TEMP 98.2
== END 2025-06-04 14:33 | disposition home or self-care (01) ==
LOC: FINFUSION 13:03 → FM/S 13:03 → FINFUSION 14:33
PROVIDERS: ATTEND Internal Medicine Infectious Disease
DX: M86.8X7 Other osteomyelitis, ankle and foot (principal)
CPT/HCPCS: 96365; J0878

== ENCOUNTER 2025-06-05 13:32 | Day surgery (SDC) | payer OTHER ==
[2025-06-05] MEDS: DAPTOMYCIN IVPB ONE (13:49)
[2025-06-05 14:41] VITALS: BP 140/78; PULSE 91; RESP 16; TEMP 98
== END 2025-06-05 14:41 | disposition home or self-care (01) ==
LOC: FINFUSION 13:32 → FM/S 13:32 → FINFUSION 14:41
PROVIDERS: ATTEND Internal Medicine Infectious Disease
DX: M86.8X7 Other osteomyelitis, ankle and foot (principal)
CPT/HCPCS: 96365; J0878

== ENCOUNTER 2025-06-06 11:27 | Day surgery (SDC) | payer OTHER ==
[2025-06-06 12:25] VITALS: BP 115/76; RESP 18; TEMP 97.8
[2025-06-06] MEDS: DAPTOMYCIN IVPB ONE (12:30)
[2025-06-06 13:50] VITALS: PULSE 84
== END 2025-06-06 13:50 | disposition home or self-care (01) ==
LOC: FINFUSION 11:27 → FM/S 11:28 → FINFUSION 13:50
PROVIDERS: ATTEND Internal Medicine Infectious Disease
DX: M86.171 Other acute osteomyelitis, right ankle and foot (principal); E13.69 Other specified diabetes mellitus with other specified complication; Z79.4 Long term (current) use of insulin
CPT/HCPCS: 96365; J0878